=== PATIENT | male | born 1960 | race Caucasian/White ===

== ENCOUNTER 2018-12-02 13:39 | Inpatient (IN) | payer OTHER | END 2018-12-06 13:00 | disposition home health service (06) | LOC: J6S 12-03 00:30 → JER 13:39 → JERBED 18:45 ==

== ENCOUNTER 2018-12-17 13:42 | Observation (INO) | payer OTHER ==
[2018-12-17 13:47] VITALS: BMI 24.4
[2018-12-17] MEDS ORDERED: ASPIRIN 81 MG CHEWABLE TABLETS PO ONE (13:47)
--- NOTE | 2018-12-17 13:47 | PDOC ---
Rapid Medical Evaluation Time Seen by Provider: 12/17/18 13:43 Medical Evaluation: Allergies Allergy/AdvReac Type Severity Reaction Status Date / Time Penicillins Allergy Verified 12/02/18 13:49 12/17/18 13:43 I have performed a brief in-person evaluation of this patient. The patient presents with a chief complaint of: left sided chest pain during hyperbaric treatment Pertinent physical exam findings: Lungs CTAB. S1/S2. No m/r/g. I have ordered the following: cardiac w/u The patient will proceed to the ED for further evaluation. Discharge Disposition - Diagnosis Chest pain - Referrals - Patient Instructions - Post Discharge Activity
[2018-12-17 15:53] LABS: BASO % 1.2 % (0-2.0); HEMATOCRIT 31.8 % (35.4-49); HEMOGLOBIN 10.4 GM/dL (11.7-16.9); LYMPH % 13.4 % (8-40); MCH 26.4 pg (25.7-33.7); MCHC 32.6 g/dl (32.0-35.9); MEAN CELL VOLUME 80.9 fl (80-96); MEAN PLT VOLUME 9.3 fl (7.5-11.1); MONO % 13.7 % (3.8-10.2); NEUT % 64.7 % (42.8-82.8); PLATELET COUNT 257 K/MM3 (134-434); RBC 3.93 M/mm3 (4.00-5.60); WHITE BLOOD COUNT 5.2 K/mm3 (4.0-10.0)
[2018-12-17] MEDS ORDERED: ASPIRIN 81 MG CHEWABLE TABLETS ONE (15:54)
--- NOTE | 2018-12-17 15:56 | PDOC ---
History of Present Illness - General Chief Complaint: Chest Pain Stated Complaint: CHEST PAIN Time Seen by Provider: 12/17/18 13:43 History Source: Patient Exam Limitations: No Limitations - History of Present Illness Initial Comments: HPI: 58 y/o male presenting to [facility] ER from [facility] hyperbaric clinic for resolving episode of left sided anterior wall chest pain. Sensation started while undergoing hyperbaric therapy for chronic foot wounds. States the pain increased in intensity before then spontaneously resolving. Described as dull and like a muscle pain. Worse with direct palpation and movement of the left shoulder. No radiation into back, neck, or abdomen. Denies recent MSK injury or strain. Denies palpitations or associated SOB. Pt receives most of his care at [facility]. 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 Historical EF of 15%. Medical Hx: - Insulin dependent diabetic - HTN - HLD - s/p vascular surgery on R lower extremity Review of Systems: In addition to that documented in the HPI above, the additional ROS was obtained : Constitutional: Denies fevers or chills Head: Denies vision changes ENMT: Denies sore throat CV: Per HPI Resp: Denies SOB GI: Denies vomiting or diarrhea : Denies painful urination, hematuria MSK: Denies recent trauma Skin: Denies new rashes Neuro: Denies new numbness or tingling or weakness Endocrine: Denies polyuria Heme: Denies bleeding or bruising Physical Examination: Constitutional: Well-developed, well-nourished adult male in no acute distress or obvious discomfort. Found semi-fowlers on hospital bed. Alert and oriented x4. Answered all questions appropriately and completely. Speech was non-labored , non-pressured. Head: Normocephalic. No obvious external signs of trauma. Neck: Supple, trachea is midline. Cardiovascular / Chest: Regular rate and regular rhythm. No murmur, rubs, clicks , or gallops. Peripheral pulses: radial pulses full. Mild tenderness to upper outer left anterior chest wall. No pain with active ROM of left shoulder. No overlying skin lesions. Respiratory: Breathing unlabored. Equal chest rise and fall. Clear to auscultation bilaterally. No stridor, no wheezing, no rhonchi. Gastrointestinal: abdomen is soft, non-tender, non-distended. Neuro: Alert and oriented. Moving all four extremities spontaneously. Skin: Murphys, warm, and dry. : No R or L CVA tenderness. Psych: Affect: appropriate. Mood: normal. MDM: *Reviewed vital signs, nursing notes, and prior visit documentation (if available). HEART Score for Major Cardiac Events RESULT SUMMARY: 4 points Moderate Score (4-6 points) Risk of MACE of 12-16.6%. INPUTS: History > 0 = Slightly suspicious EKG > 1 = Non-specific repolarization disturbance Age > 1 = 45-64 Risk factors > 2 = ?3 risk factors or history of atherosclerotic disease Initial troponin > 0 = ?normal limit Fax sent to [facility] for cardiac records ( ) 58 y/o male presenting with reproducible non pleuritic left sided anterior chest wall pain. Pain resolving at time of interview. Multiple cardiac risk factors. HEART score 4. Afebrile. Vitals unremarkable for hypotension or tachycardia. Normoxic on room air. Physical exam as described above. Given ASA. EKG revealed pseudonormalization in inferior leads when compared to previous EKG dated 02 Dec 2018. CXR unremarkable for acute cardiopulmonary findings. CBC remarkable for mild anemia, low suspicion for acute clinical relevance. Troponin not elevated. Three hour troponin ordered. Will admit pt for chest pain observation. 17:[address] Garcia. Verbally appraised of the pts HPI, ED course, and current plan of management. Will admit pt to telemetry on observational status. Sandro Olea M.D., PGY2 Emergency Medicine Resident Past History - Past Medical History Allergies/Adverse Reactions: Allergies Allergy/AdvReac Type Severity Reaction Status Date / Time Penicillins Allergy Verified 12/17/18 13:49 Home Medications: Ambulatory Orders Aspirin [ASA -] 81 mg PO DAILY 12/02/18 Atorvastatin Ca [Lipitor] 40 mg PO HS 12/02/18 Carvedilol [Coreg -] 6.25 mg PO BID 12/02/18 Clopidogrel Bisulfate [Clopidogrel] 75 mg PO DAILY 12/02/18 Lisinopril 5 mg PO DAILY 12/02/18 Collagenase Clostridium Hist. [Santyl] 1 applic TP DAILY 12/03/18 Insulin (Levemir) [Levemir Vial] 10 unit SQ DAILY #1 vial 12/05/18 Naproxen Sodium [Aleve] 3 tab PO Q12H PRN 12/11/18 Anemia: No Asthma: No COPD: No CHF: Yes Diabetes: Yes (25 yrs) GI Disorders: Yes (Gastroparesis) HTN: Yes Hypercholesterolemia: Yes - Surgical History Abdominal Surgery: Yes (hernia repair 2009) Cardiac Surgery: Yes (Cardiac Cath 2008) - Suicide/Smoking/Psychosocial Hx Smoking History: Former smoker Have you smoked in the past 12 months: No If you are a former smoker, when did you quit?: 20 YEARS AGO Information on smoking cessation initiated: No Hx Alcohol Use: No Drug/Substance Use Hx: No Substance Use Type: None *Physical Exam - Vital Signs Last Vital Signs Temp Pulse Resp BP Pulse Ox 98.2 F 91 H 16 104/66 99 12/17/18 13:44 12/17/18 13:44 12/17/18 13:44 12/17/18 13:44 12/17/18 13:44 Vital Signs - Vital Signs #1 Blood Pressure: 106/76 (@15:35) MAP: 86 BP Location: Right Arm Blood Pressure Position: Sitting Pulse Rate: 84 Respiratory Rate: 12 O2 Sat by Pulse Oximetry (%): 99 Oxygen Delivery Method: Room Air ED Treatment Course - LABORATORY CBC & Chemistry Diagram: 12/17/18 15:06 12/17/18 15:06 - ADDITIONAL ORDERS Additional order review: 12/17/18 15:06 RBC 3.93 L MCV 80.9 MCHC 32.6 RDW 16.0 H MPV 9.3 Neutrophils % 64.7 Lymphocytes % 13.4 D Monocytes % 13.7 H Eosinophils % 7.0 H D Basophils % 1.2 *DC/Admit/Observation/Transfer Diagnosis at time of Disposition: Chest pain Qualifiers: Chest pain type: unspecified Qualified Code(s): R07.9 - Chest pain, unspecified - Discharge Dispostion Condition at time of disposition: Stable Decision to Admit order: Yes - Referrals - Patient Instructions - Post Discharge Activity
[2018-12-17 16:08] LABS: INR 1.12 (0.83-1.09); PROTHROMBIN TIME (PATIENT) 13.2 SEC (9.7-13.0)
[2018-12-17 16:20] LABS: BLOOD UREA NITROGEN 19.6 mg/dL (7-18); CALCIUM 9.3 mg/dL (8.5-10.1); CREATININE 1.3 mg/dL (0.55-1.3); MAGNESIUM 2.4 mg/dL (1.8-2.4); POTASSIUM 4.7 mmol/L (3.5-5.1)
--- NOTE | 2018-12-17 16:28 | PDOC ---
Documentation entered by Karen Estrada SCRIBE, acting as scribe for Jorge Valladares MD. Jorge Valladares MD: This documentation has been prepared by the [email or web address], Karen Estrada SCRIBE, under my direction and personally reviewed by me in its entirety. I confirm that the documentation accurately reflects all work, treatment, procedures, and medical decision making performed by me. Attending Attestation - Resident Resident Name: Sandro - ED Attending Attestation I have performed the following: I have examined & evaluated the patient, The case was reviewed & discussed with the resident, I agree w/resident's findings & plan, Exceptions are as noted - HPI HPI: 12/17/18 16:03 The patient is a 58-year-old male, with a past medical history of CHF (EF 35-45% ), IDDM, gastroparesis, who was sent to the ED from the [facility] for LT -sided anterior chest wall pain that has now resolved. The patient is being treated at the [facility] for chronic foot wounds. - Physicial Exam PE: 12/17/18 16:32 patient is awake and alert, well-nourished, in no distress + Scalp hemangiomas noted Normocephalic, atraumatic PERRLA, EOMI No JVD CTA RRR Bilateral nonhealing wounds to lower extremities - Medical Decision Making 12/17/18 16:27 Patient is a 58-year-old male with multiple comorbidities, multiple risk factors for ACS, presents with atraumatic, reproducible left-sided anterior chest pain while in the hyperbaric chamber. EKG shows pseudonormalization of T waves in the inferior leads. Patient currently pain-free. We'll administer aspirin and transdermal nitroglycerin. Patient's heart score is noted to be 4. First set of cardiac enzymes within normal limit. Will place in observation for serial cardiac enzymes. Heart Score/ECG Review - History History: Slightly suspicious - Electrocardiogram EKG: Non specific repolarization disturbance - Age Age: 45-65 - Risk Factors Risk Factors Heart Score: Yes Hx Hypercholesterolemia, Yes Hx Hypertension, Yes Hx Diabetes Based on the list above the patient has:: >/=3 risk factors or Hx atherosclerotic disease - Troponin Troponin: </= normal limit - Score Heart Score - Total: 4
--- NOTE | 2018-12-17 19:25 | HP ---
Admitting History and Physical - Primary Care Physician PCP: Shavonne Garcia - Admission History of Present Illness: 58 y/o male presenting to [facility] ER from [facility] hyperbaric clinic for resolving episode of left sided anterior wall chest pain. Sensation started while undergoing hyperbaric therapy for chronic foot wounds. States the pain increased in intensity before then spontaneously resolving. Described as dull and like a muscle pain. Worse with direct palpation and movement of the left shoulder. No radiation into back, neck, or abdomen. Denies recent MSK injury or strain. Denies palpitations or associated SOB. 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 [Santyl] 1 applic TP DAILY 12/03/18 Insulin (Levemir) [Levemir Vial] 10 unit SQ DAILY #1 vial 12/05/18 Naproxen Sodium [Aleve] 3 tab PO Q12H PRN 12/11/18 Physical Examination Vital Signs: Vital Signs Temperature 98.2 F 12/17/18 13:44 Pulse Rate 84 12/17/18 18:00 Respiratory Rate 12 12/17/18 18:00 Blood Pressure 106/76 12/17/18 18:00 O2 Sat by Pulse Oximetry (%) 99 12/17/18 18:00 Constitutional: Yes: No Distress HENT: Yes: Atraumatic Neck: Yes: Supple Cardiovascular: Yes: Regular Rate and Rhythm Respiratory: Yes: CTA Bilaterally Gastrointestinal: Yes: Normal Bowel Sounds Extremities: Yes: WNL Edema: No Neurological: Yes: Alert, Oriented Labs: CBC, BMP 12/17/18 15:06 12/17/18 15:06 Imaging - Results X-ray: Report Reviewed Problem List - Problems (1) Chest pain Assessment/Plan: reproducible seems like musculoskeletal will monitor on tele fu troponins Code(s): R07.9 - CHEST PAIN, UNSPECIFIED Qualifiers: Chest pain type: unspecified Qualified Code(s): R07.9 - Chest pain, unspecified (2) Diabetes 1.5, managed as type 1 Code(s): E13.9 - OTHER SPECIFIED DIABETES MELLITUS WITHOUT COMPLICATIONS (3) Diabetic foot ulcer Code(s): E11.621 - TYPE 2 DIABETES MELLITUS WITH FOOT ULCER; L97.509 - NON- PRESSURE CHRONIC ULCER OTH PRT UNSP FOOT W UNSP SEVERITY Qualifiers: Diabetic foot ulcer location: heel Diabetes mellitus type: type 2 Laterality: right (4) PVD (peripheral vascular disease) Code(s): I73.9 - PERIPHERAL VASCULAR DISEASE, UNSPECIFIED Assessment/Plan Laboratory Tests 12/17/18 12/17/18 12/17/18 15:06 15:06 15:06 WBC 5.2 RBC 3.93 L Hgb 10.4 L Hct 31.8 L MCV 80.9 MCH 26.4 MCHC 32.6 RDW 16.0 H Plt Count 257 MPV 9.3 Absolute Neuts (auto) 3.4 Neutrophils % 64.7 Lymphocytes % 13.4 D Monocytes % 13.7 H Eosinophils % 7.0 H D Basophils % 1.2 Nucleated RBC % 0 PT with INR INR Sodium 143 Potassium 4.7 Chloride 105 Carbon Dioxide 32 Anion Gap 6 L BUN 19.6 H Creatinine 1.3 Est GFR (CKD-EPI)AfAm 69.71 Est GFR (CKD-EPI)NonAf 60.14 Random Glucose 204 H Calcium 9.3 Magnesium 2.4 Total Bilirubin 1.0 AST 8 L ALT 13 Alkaline Phosphatase 65 Creatine Kinase 43 Troponin I < 0.02 Total Protein 7.0 Albumin 3.0 L 12/17/18 15:06 WBC RBC Hgb Hct MCV MCH MCHC RDW Plt Count MPV Absolute Neuts (auto) Neutrophils % Lymphocytes % Monocytes % Eosinophils % Basophils % Nucleated RBC % PT with INR 13.20 H INR 1.12 H Sodium Potassium Chloride Carbon Dioxide Anion Gap BUN Creatinine Est GFR (CKD-EPI)AfAm Est GFR (CKD-EPI)NonAf Random Glucose Calcium Magnesium Total Bilirubin AST ALT Alkaline Phosphatase Creatine Kinase Troponin I Total Protein Albumin continue home meds
[2018-12-17] MEDS ORDERED: ATORVASTATIN CA 40 MG TABLET (FP) PO SCH (22:00)
--- NOTE | 2018-12-17 23:30 | EKG ---
Test Reason : Blood Pressure : / mmHG Vent. Rate : 087 BPM Atrial Rate : 087 BPM P-R Int : 154 ms QRS Dur : 088 ms QT Int : 368 ms P-R-T Axes : 063 -30 000 degrees QTc Int : 442 ms NORMAL SINUS RHYTHM LEFT AXIS DEVIATION ABNORMAL ECG WHEN COMPARED WITH ECG OF 02-DEC-2018 19:57, CRITERIA FOR SEPTAL INFARCT ARE NO LONGER PRESENT NONSPECIFIC T WAVE ABNORMALITY HAS REPLACED INVERTED T WAVES IN INFERIOR LEADS Confirmed by GALINA RUIZ MD ([id number]) on 12/17/2018 11:30:28 PM Referred By: Confirmed By:GALINA RUIZ MD
[2018-12-18] MEDS ORDERED: CARVEDILOL 3.125 MG TABLET (FP) ONE (00:18)
[2018-12-18] MEDS ORDERED: ATORVASTATIN CA 40 MG TABLET (FP) ONE (00:18)
[2018-12-18] MEDS ORDERED: HEPARIN NA (PORCINE) 5,000 UNITS/ML 1ML VIAL ONE (00:19)
[2018-12-18] MEDS: HEPARIN NA (PORCINE) 5,000 UNITS/ML 1ML VIAL SQ SCH ×2 (00:31→09:59)
[2018-12-18] MEDS: CARVEDILOL 6.25 MG TABLET (FP) PO SCH ×2 (00:31→09:58)
[2018-12-18] MEDS ORDERED: COLLAGENASE CLOSTRIDIUM HIST. 30 GRAMS TUBE TP SCH (10:00)
[2018-12-18] MEDS ORDERED: ASPIRIN 81 MG CHEWABLE TABLETS PO SCH (10:00)
[2018-12-18] MEDS ORDERED: CLOPIDOGREL BISULFATE 75 MG TABLET (FP) PO SCH (10:00)
--- NOTE | 2018-12-18 10:08 | CON.CARD ---
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 No radiation into back, neck, or abdomen. Denies recent MSK injury or strain. Denies near or true syncope, orthopnea, PND, LE edema palpitations or associated SOB. 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: Peripheral Neuropathy, Other (LP 2 years ago- followed by neurologist ) Cardio/Vascular: Yes: CHF, HTN Gastrointestinal: Yes: Other (gastroparesis) Endocrine: Yes: Diabetes Mellitus - Past Surgical History Past Surgical History: Yes: Hernia Repair - Alcohol/Substance Use Hx Alcohol Use: No - Smoking History Smoking history: Former smoker Have you smoked in the past 12 months: No If you are a former smoker, when did you quit?: 20 YEARS AGO - Social History Usual Living Arrangement: Alone ADL: Independent 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 [Santyl] 1 applic TP DAILY 12/03/18 Insulin (Levemir) [Levemir Vial] 10 unit SQ DAILY #1 vial 12/05/18 Naproxen Sodium [Aleve] 3 tab PO Q12H PRN 12/11/18 Review of Systems - Review of Systems Cardiovascular: reports: Chest Pain Vital Signs: Vital Signs Temperature 98.0 F 12/18/18 06:24 Pulse Rate 79 12/18/18 06:24 Respiratory Rate 18 12/18/18 06:24 Blood Pressure 128/85 12/18/18 06:24 O2 Sat by Pulse Oximetry (%) 100 12/18/18 06:24 Constitutional: Yes: No Distress, Calm Neck: Yes: Supple Respiratory: Yes: Regular, CTA Bilaterally, Other (Reproducible chest wall tenderness) Gastrointestinal: Yes: Normal Bowel Sounds, Soft Cardiovascular: Yes: Regular Rate and Rhythm JVD: No Carotid Bruit: No Heart Sounds: Yes: S1, S2 Edema: No - Other Data Labs, Other Data: CBC, BMP 12/17/18 15:06 12/17/18 15:06 INR, PTT INR 1.12 (0.83-1.09) H 12/17/18 15:06 Troponin, BNP 12/17/18 12/18/18 15:06 03:25 Troponin I < 0.02 0.02 Troponin, BNP 12/17/18 12/18/18 15:06 03:25 Troponin I < 0.02 0.02 NSR @ 87 LAD Prior Cardiac Procedures: Cardiac Catheterization Ejection Fraction %: LVEF < 40 % Imaging - Results Chest X-ray: Report Reviewed (NAD) Problem List - Problems (1) Left-sided chest wall pain Code(s): R07.89 - OTHER CHEST PAIN (2) Nonischemic dilated cardiomyopathy Code(s): I42.0 - DILATED CARDIOMYOPATHY (3) Hyperlipidemia Code(s): E78.5 - HYPERLIPIDEMIA, UNSPECIFIED Qualifiers: Hyperlipidemia type: pure hypercholesterolemia Qualified Code(s): E78.00 - Pure hypercholesterolemia, unspecified; E78.0 - Pure hypercholesterolemia (4) Hypertensive cardiomyopathy Code(s): I11.9 - HYPERTENSIVE HEART DISEASE WITHOUT HEART FAILURE; I43 - CARDIOMYOPATHY IN DISEASES CLASSIFIED ELSEWHERE Qualifiers: Heart failure presence: without heart failure Qualified Code(s): I11.9 - Hypertensive heart disease without heart failure; I43 - Cardiomyopathy in diseases classified elsewhere (5) Diabetes 1.5, managed as type 1 Code(s): E13.9 - OTHER SPECIFIED DIABETES MELLITUS WITHOUT COMPLICATIONS (6) Diabetic foot ulcer Code(s): E11.621 - TYPE 2 DIABETES MELLITUS WITH FOOT ULCER; L97.509 - NON- PRESSURE CHRONIC ULCER OTH PRT UNSP FOOT W UNSP SEVERITY Qualifiers: Diabetic foot ulcer location: heel Diabetes mellitus type: type 2 Laterality: right (7) Wound, open, foot Code(s): S91.309A - UNSPECIFIED OPEN WOUND, UNSPECIFIED FOOT, INITIAL ENCOUNTER Qualifiers: Encounter type: initial encounter Laterality: right Qualified Code(s): S91.301A - Unspecified open wound, right foot, initial encounter (8) PVD (peripheral vascular disease) Code(s): I73.9 - PERIPHERAL VASCULAR DISEASE, UNSPECIFIED Assessment/Plan 1. Chest wall discomfort c/w musculoskeletal etiology 2. Nonischemic dilated cardiomyopathy LVEF 35-45% on most recent echo 3. Insulin-dependent type 2 DM c/b peripheral neuropathy and gastroparesis 4. HTN 5. Hyperlipidemia 6. PAD with chronic non-healing heel ulcers and right big toe amputation 7. PCN Allergy P:1. Ruled out for IA, analgesia as needed but prefer to avoid NSAIDs given CVD history 2. Continue ASA 81 qd, Lipitor 40 qd, carvedilol 6.26 bid, lisinopril 5 qd, Plavix 75 qd 3. Obtain records from [facility] for review 4. Wound care, HBO2 5. Patient prefers transfer cardiology f/u to local office, he may see us in office upon d/c 6. Thank you for consultative opportunity
[2018-12-18] MEDS ORDERED: LISINOPRIL 5 MG TABLET (FP) PO SCH (10:45)
--- NOTE | 2018-12-18 14:31 | DS ---
Physical Examination Vital Signs: Vital Signs Temperature 98.0 F 12/18/18 06:24 Pulse Rate 79 12/18/18 06:24 Respiratory Rate 18 12/18/18 06:24 Blood Pressure 128/85 12/18/18 06:24 O2 Sat by Pulse Oximetry (%) 100 12/18/18 06:24 Constitutional: Yes: No Distress HENT: Yes: Atraumatic Cardiovascular: Yes: Regular Rate and Rhythm Respiratory: Yes: CTA Bilaterally Gastrointestinal: Yes: Normal Bowel Sounds Extremities: Yes: WNL Neurological: Yes: Alert, Oriented Labs: CBC, BMP 12/17/18 15:06 12/17/18 15:06 Discharge Summary Reason For Visit: CHEST PAIN Current Active Problems Chest pain (Acute) Hyperlipidemia (Acute) Hypertensive cardiomyopathy (Acute) Left-sided chest wall pain (Acute) Nonischemic dilated cardiomyopathy (Acute) Condition: Stable - Instructions Referrals: Armen Horton MD [Staff Physician] - Disposition: HOME - Home Medications Comprehensive Discharge Medication List: Ambulatory Orders Aspirin [ASA -] 81 mg PO DAILY 12/02/18 Atorvastatin Ca [Lipitor] 40 mg PO HS 12/02/18 Carvedilol [Coreg -] 6.25 mg PO BID 12/02/18 Clopidogrel Bisulfate [Clopidogrel] 75 mg PO DAILY 12/02/18 Lisinopril 5 mg PO DAILY 12/02/18 Collagenase Clostridium Hist. [Santyl] 1 applic TP DAILY 12/03/18 Insulin (Levemir) [Levemir Vial] 10 unit SQ DAILY #1 vial 12/05/18 Naproxen Sodium [Aleve] 3 tab PO Q12H PRN 12/11/18 troponins negative dc home fu cardio/pmd as out patient
[2018-12-18 15:04] VITALS: BP 148/84; PULSE 79; TEMP 98.2
== END 2018-12-18 18:42 | disposition home or self-care (01) ==
LOC: JER 13:42 → JERBED 16:33 → J4W 12-18 07:56
PROVIDERS: ADMIT Internal Medicine; ATTEND Internal Medicine
PROC: 3E013GC Introduction of Other Therapeutic Substance into Subcutaneous Tissue, Percutaneous Approach (ICD-10-PCS; principal; 2018-12-17)
DX: R07.89 Other chest pain (principal); I11.0 Hypertensive heart disease with heart failure; E78.5 Hyperlipidemia, unspecified; I50.30 Unspecified diastolic (congestive) heart failure; E11.621 Type 2 diabetes mellitus with foot ulcer; L97.509 Non-pressure chronic ulcer of other part of unspecified foot with unspecified severity; I73.9 Peripheral vascular disease, unspecified; I42.0 Dilated cardiomyopathy; I43 Cardiomyopathy in diseases classified elsewhere; Z79.4 Long term (current) use of insulin; Z87.891 Personal history of nicotine dependence; Z98.61 Coronary angioplasty status
CPT/HCPCS: 36415; 71046-TC-FY; 80053; 82550; 82962; 83735; 84484; 85025; 85610; 93005; 93010; 96372; 99285-25; G0277; G0378; J1644

== ENCOUNTER 2018-12-23 10:36 | Inpatient (IN) | payer OTHER ==
--- NOTE | 2018-12-23 11:15 | PDOC ---
History of Present Illness - General Chief Complaint: Wound Stated Complaint: WOUND Time Seen by Provider: 12/23/18 11:09 - History of Present Illness Initial Comments: 12/23/18 11:14 The patient is a 58-year-old male, with a past medical history of CHF (EF 35-45% ), IDDM, gastroparesis, currently undergoing hyperbaric treatment for chronic foot wounds who was sent by his Podiatrists office for possible new R lateral heel redness and potential abscess. The patient denies fever, chills, change in sensation of the foot, increased swelling. Denies n/v/d/c, chest pain, shortness of breath. Patient uses a scooter to move around in order to stay off his feet. ROS GENERAL/CONSTITUTIONAL: No fever or chills. No weakness. HEAD, EYES, EARS, NOSE AND THROAT: No change in vision. No ear pain or discharge. No sore throat. CARDIOVASCULAR: No chest pain or shortness of breath RESPIRATORY: No cough, wheezing, or hemoptysis. GASTROINTESTINAL: No nausea, vomiting, diarrhea or constipation. GENITOURINARY: No dysuria, frequency, or change in urination. MUSCULOSKELETAL: No neck or back pain. SKIN: No rash NEUROLOGIC: No headache, vertigo, loss of consciousness, or change in strength/ sensation. PE GENERAL: Awake, alert, and fully oriented, in no acute distress HEAD: No signs of trauma, normocephalic, atraumatic EYES: EOMI, sclera anicteric, conjunctiva clear ENT: oropharynx clear without exudates. Moist mucosa NECK: Normal ROM, supple LUNGS: No distress, speaks full sentences, clear to auscultation bilaterally HEART: Regular rate and rhythm, normal S1 and S2, no murmurs, rubs or gallops, peripheral pulses normal and equal bilaterally. ABDOMEN: Soft, nontender, normoactive bowel sounds. No guarding, no rebound. No masses EXTREMITIES : L foot: 6cm plantar ulcer, heel crusted over ulcer R foot: 1st digit amputation, 2cm heel ulcer, lateral plantar ulcer 2cm, lateral heel erythema 5cm NEUROLOGICAL: Cranial nerves II through XII grossly intact. Normal speech, no focal sensorimotor deficits MDM The patient is a 58-year-old male, with a past medical history of CHF (EF 35-45% ), IDDM, gastroparesis, currently undergoing hyperbaric treatment for chronic foot wounds who was sent by his Podiatrists office for possible new R lateral heel redness and potential abscess. DDX including but not limited to: cellulitis vs ulcer vs abscess r/osteomyelitis W/U: - cbc, cmp, blood cultures, xr ED Course: empiric antibiotics started labs largely within normal XR without evidence of bone involvement plan for admission Case discussed with resident Dr. Jorge Hernandez, PGY2 Emergency Medicine Past History - Past Medical History Allergies/Adverse Reactions: Allergies Allergy/AdvReac Type Severity Reaction Status Date / Time Penicillins Allergy Verified 12/23/18 10:42 Home Medications: Ambulatory Orders Aspirin [ASA -] 81 mg PO DAILY 12/23/18 Atorvastatin Ca [Lipitor] 40 mg PO HS 12/23/18 Carvedilol [Coreg] 6.25 mg PO DAILY 12/23/18 Clopidogrel Bisulfate [Clopidogrel] 75 mg PO DAILY 12/23/18 Insulin (Levemir) [Levemir Vial] 10 units SQ DAILY 12/23/18 Lisinopril 5 mg PO DAILY 12/23/18 Anemia: No Asthma: No Cardiac Disorders: Yes COPD: No CHF: Yes Diabetes: Yes GI Disorders: Yes HTN: Yes Hypercholesterolemia: Yes Other medical history: hydrocepalus - Surgical History Abdominal Surgery: Yes (hernia repair 2009) Cardiac Surgery: Yes (Cardiac Cath 2008) - Suicide/Smoking/Psychosocial Hx Smoking History: Never smoked Have you smoked in the past 12 months: No If you are a former smoker, when did you quit?: 20 YEARS AGO Hx Alcohol Use: No Drug/Substance Use Hx: No Substance Use Type: None *Physical Exam - Vital Signs Last Vital Signs Temp Pulse Resp BP Pulse Ox 97.8 F 109 H 16 109/72 100 12/23/18 10:39 12/23/18 10:39 12/23/18 10:39 12/23/18 10:39 12/23/18 10:39 ED Treatment Course - LABORATORY CBC & Chemistry Diagram: 12/25/18 07:07 12/25/18 07:07 *DC/Admit/Observation/Transfer Diagnosis at time of Disposition: Foot ulcer - Discharge Dispostion Condition at time of disposition: Stable Decision to Admit order: Yes - Referrals - Patient Instructions - Post Discharge Activity
[2018-12-23] MEDS ORDERED: VANCOMYCIN HCL 1,500 MG in DEXTROSE 5%-WATER - 500 ML IVPB ONE (11:34)
[2018-12-23] MEDS ORDERED: PIPERACILLIN/TAZOB 4.5 GM 4.5 GM in DEXTROSE 5%-WATER 100 ML IVPB ONE (11:34)
[2018-12-23] MEDS ORDERED: PIPERACILLIN/TAZOB 4.5 GM 4.5 GM/100 ML BAG IVPB ONE (12:32)
[2018-12-23] MEDS ORDERED: VANCOMYCIN HCL 1,000 MG in DEXTROSE 5%-WATER - 500 ML IVPB ONE (13:04)
[2018-12-23 13:06] LABS: BASO % 0.7 % (0-2.0); EOS % 6.6 % (0-4.5); HEMATOCRIT 34.6 % (35.4-49); HEMOGLOBIN 11.2 GM/dL (11.7-16.9); LYMPH % 10.2 % (8-40); MCH 26.4 pg (25.7-33.7); MCHC 32.3 g/dl (32.0-35.9); MEAN CELL VOLUME 81.9 fl (80-96); MEAN PLT VOLUME 9.5 fl (7.5-11.1); MONO % 10.5 % (3.8-10.2); PLATELET COUNT 254 K/MM3 (134-434); RBC 4.22 M/mm3 (4.00-5.60); RDW 16.1 % (11.9-15.9); WHITE BLOOD COUNT 7.6 K/mm3 (4.0-10.0)
[2018-12-23 13:31] LABS: ALBUMIN 3.3 g/dl (3.4-5.0); BILIRUBIN,TOTAL 0.5 mg/dL (0.2-1); BLOOD UREA NITROGEN 17.2 mg/dL (7-18); CALCIUM 9.3 mg/dL (8.5-10.1); CREATININE 1.2 mg/dL (0.55-1.3); TOT PROT 7.7 g/dl (6.4-8.2)
[2018-12-23] MEDS ORDERED: VANCOMYCIN 1 GRAM (PRE-DOCKED) 1,000 MG/250 ML BAG IVPB ONE (13:41)
--- NOTE | 2018-12-23 13:46 | PDOC ---
Documentation entered by Valerie Perez SCRIBE, acting as scribe for Yaakov Lane MD. Yaakov Lane MD: This documentation has been prepared by the Chris clements Xhesika, SCRIBE, under my direction and personally reviewed by me in its entirety. I confirm that the documentation accurately reflects all work, treatment, procedures, and medical decision making performed by me. Attending Attestation - Resident Resident Name: Dorinda Hernandez - ED Attending Attestation I have performed the following: I have examined & evaluated the patient, The case was reviewed & discussed with the resident, I agree w/resident's findings & plan, Exceptions are as noted - HPI HPI: 12/23/18 12:45 The patient is a 58 year old male, with a past medical history of CHF (EF 35-45% ), IDDM, gastroparesis, neuropathy, and R great toe amputation (2008) who presents to the ED from the [facility] for admission for worsening R heel wound, swelling and redness. The patient is being treated at the [facility] for chronic foot wounds for the past 3 weeks and is now endorsing chills and difficulty walking (ambulates with a scooter). The patient denies headache and dizziness. Denies fever, nausea, vomiting, diarrhea and constipation. Denies dysuria, frequency, urgency and hematuria. Allergies: Penicillins - Physicial Exam PE: 12/23/18 12:46 Vitals: Triage Vital signs reviewed General Appearance: no acute distress, well nourished well developed, Head: Atraumatic, normocephalic Chest Wall: Nontender Cardiac: Regular rate and rhythm, no murmurs, no rubs, no gallops, Lungs: Clear to auscultation bilateral, good air movement bilaterally, Abdomen: Soft, nondistended, normal bowel sounds, nontender to palpation Extremities: (+) R heel swelling and redness with 2 small ulcers. Skin: Warm and dry, no rashes or lesions, no petechiae Neuro: Strength intact to all extremities, Sensation intact to all extremities , Psych: normal mood, normal affect - Medical Decision Making 12/23/18 14:18 58 years old past medical history significant for CHF, and some dependent diabetes, gastroparesis, undergoing bariatric treatment of chronic right foot wound presents for admission for new right heel lateral heel redness and swelling Endorses subjective fever chills at home Symptoms of been progressively worsening over the last few weeks We'll admit for IV antibiotics cover thanks Feroz have podiatry and infectious disease consult
--- NOTE | 2018-12-23 16:19 | HP ---
Admitting History and Physical - Primary Care Physician PCP: follows at [facility] - Admission Chief Complaint: non-healing foot ulcers History of Present Illness: The patient is a 58-year-old male, with a past medical history of CHF (EF 35-45% ), IDDM, gastroparesis, currently undergoing hyperbaric treatment for chronic foot wounds with Dr Beverly. Sent from his office for possible new R lateral heel redness and potential abscess. Patient states the right foot has been tender and draining since he left the hospital on 12/18/18. The patient denies fever, change in sensation of the foot, increased swelling but tstaes hes been having intermittent chills for 5 days. Denies n/v/d/c, chest pain, shortness of breath. Patient uses a scooter to ambulate. 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: Peripheral Neuropathy, Other (LP 2 years ago- followed by neurologist ) Cardiovascular: Yes: CHF (EF 35-55%), HTN Gastrointestinal: Yes: Other (gastroparesis) Infectious Disease: Yes: Other (non healing foot ulcers on both) Endocrine: Yes: Diabetes Mellitus - Past Surgical History Past Surgical History: Yes: Amputation (right great toe), Hernia Repair - Smoking History Smoking history: Never smoked Have you smoked in the past 12 months: No If you are a former smoker, when did you quit?: 20 YEARS AGO - Alcohol/Substance Use Hx Alcohol Use: No - Social History ADL: Independent 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 History of Recent Travel: No Home Medications - Allergies Allergies/Adverse Reactions: Allergies Allergy/AdvReac Type Severity Reaction Status Date / Time Penicillins Allergy Verified 12/23/18 10:42 - Home Medications Home Medications: Ambulatory Orders Aspirin [ASA -] 81 mg PO DAILY 12/23/18 Atorvastatin Ca [Lipitor] 40 mg PO HS 12/23/18 Carvedilol [Coreg] 6.25 mg PO DAILY 12/23/18 Clopidogrel Bisulfate [Clopidogrel] 75 mg PO DAILY 12/23/18 Insulin (Levemir) [Levemir Vial] 10 units SQ DAILY 12/23/18 Lisinopril 5 mg PO DAILY 12/23/18 Family Disease History - Family Disease History Family History: Unremarkable (non contibutory) Review of Systems - Review of Systems Constitutional: reports: Chills (x 5 days) Eyes: reports: No Symptoms HENT: reports: No Symptoms Neck: reports: No Symptoms Cardiovascular: reports: No Symptoms Respiratory: reports: No Symptoms Gastrointestinal: reports: No Symptoms Genitourinary: reports: No Symptoms Breasts: reports: No Symptoms Reported Integumentary: reports: Change in Color (to right heel and draining clear fluid) Neurological: reports: No Symptoms Endocrine: reports: No Symptoms Hematology/Lymphatic: reports: No Symptoms Psychiatric: reports: No Symptoms Physical Examination Vital Signs: Vital Signs Temperature 97.8 F 12/23/18 10:39 Pulse Rate 109 H 12/23/18 10:39 Respiratory Rate 16 12/23/18 10:39 Blood Pressure 109/72 12/23/18 10:39 O2 Sat by Pulse Oximetry (%) 100 12/23/18 10:39 Constitutional: Yes: Well Nourished, No Distress, Calm Eyes: Yes: WNL, Conjunctiva Clear, EOM Intact HENT: Yes: WNL, Atraumatic, Normocephalic Neck: Yes: WNL, Supple, Trachea Midline Cardiovascular: Yes: WNL, Regular Rate and Rhythm Respiratory: Yes: WNL, Regular, CTA Bilaterally Gastrointestinal: Yes: WNL, Normal Bowel Sounds, Soft ...Rectal Exam: Yes: Deferred Renal/: Yes: WNL Breast(s): Yes: WNL Musculoskeletal: Yes: WNL Extremities: Yes: Amputation, Erythema, Other (L foot: 6cm plantar ulcer, heel crusted over ulcer R foot: 1st digit amputation, 2cm heel ulcer, lateral plantar ulcer 2cm, lateral heel erythema 5cm) Edema: Yes Edema: LLE: Trace, RLE: Trace Peripheral Pulses WNL: No Peripheral Pulses: Left Radial: 2+, Right Radial: 2+, Left Doralis Pedis: 1+, Right Dorsalis Pedis: 1+, Left Femoral: 2+, Right Femoral: 2+ Integumentary: Yes: Other (L foot: 6cm plantar ulcer, heel crusted over ulcer R foot: 1st digit amputation, 2cm heel ulcer, lateral plantar ulcer 2cm, lateral heel erythema 5cm) Wound/Incision: Yes: Open to air, Draining (yellow drainage on dressing, not foul smelling) Neurological: Yes: WNL, Alert, Oriented ...Motor Strength: LLE, RLE (decreased due to ulcers) Psychiatric: Yes: WNL, Alert, Oriented Labs: CBC, BMP 12/23/18 12:48 12/23/18 12:48 Imaging - Results X-ray: Report Reviewed (3 views of the left ankle have been submitted. There is no sign of fracture or subluxation and no sign of blastic or lytic changes. There is minimal calcaneal spurring, vascular calcifications, intact mortise and no sign of swelling, foreign body or soft tissue air. 3 views of the left foot reveal bunion formation by the first MTP joint with partially flexed toes and other arthritic changes. An acute fracture or subluxation is not seen. There is no sign of swelling, foreign body or soft tissue air. If symptoms persist, further imaging and orthopedic consultation may be of help.), Image Reviewed Problem List - Problems (1) History of hyperbaric oxygen therapy Assessment/Plan: treated by Dr Carter for chronic foot ulcers Code(s): Z92.89 - PERSONAL HISTORY OF OTHER MEDICAL TREATMENT (2) Prophylactic measure Assessment/Plan: FEN Pt states he feels dehydrated. Given reported chills will order NS @ 50cc/hr until observed adequate IVF monitor electrolytes diabetic diet DVT on plavix at home-will hold dose in am pending potential wound procedures Dispo admit to med surg bed full code discharge planning Code(s): Z29.9 - ENCOUNTER FOR PROPHYLACTIC MEASURES, UNSPECIFIED (3) Diabetic foot ulcer Assessment/Plan: treated by Dr Carter for chronic foot ulcers Code(s): E11.621 - TYPE 2 DIABETES MELLITUS WITH FOOT ULCER; L97.509 - NON- PRESSURE CHRONIC ULCER OTH PRT UNSP FOOT W UNSP SEVERITY Qualifiers: Diabetic foot ulcer location: heel Diabetes mellitus type: type 2 Laterality: right (4) Hyperlipidemia Assessment/Plan: low fat/cholesterol diet c\w home dose of atorvastin Code(s): E78.5 - HYPERLIPIDEMIA, UNSPECIFIED Qualifiers: Hyperlipidemia type: pure hypercholesterolemia Qualified Code(s): E78.00 - Pure hypercholesterolemia, unspecified; E78.0 - Pure hypercholesterolemia (5) PVD (peripheral vascular disease) Assessment/Plan: followed by Dr Santoyo for hyperbaric oxygen therapy wound care as per podiatry c/w ambulation with scooter to decrease pressure on open wounds Code(s): I73.9 - PERIPHERAL VASCULAR DISEASE, UNSPECIFIED (6) Non-ischemic cardiomyopathy Assessment/Plan: nonischemic dilated cardiomyopathy (initially LVEF 15% on initial diagnosis 2008 , most recent EF 35-45%) will consult cardiology for managment while in patient c/w home doses of ASA 81 qd, Lipitor 40 qd, carvedilol 6.26 bid, lisinopril 5 qd will hold Plavix for now pending potential wound procedure Code(s): I42.8 - OTHER CARDIOMYOPATHIES Visit type - Emergency Visit Emergency Visit: Yes ED Registration Date: 12/23/18 Care time: The patient presented to the Emergency Department on the above date and was hospitalized for further evaluation of their emergent condition. - New Patient This patient is new to me today: Yes Date on this admission: 12/23/18 - Critical Care Critical Care patient: No
--- NOTE | 2018-12-23 17:29 | CONSULT ---
Consult - text type - Consultation Consultation Note: Podiatry Consultation: 58 year old IDDM male presented to wound healing center today with bilateral diabetic foot ulcers. The patient noted increasing pain/swelling/redness to the right lateral heel over the past few days. He denies fevers but does report subjective chills at home. Currently afebrile. Patient was seen with purulent drainage from the right heel today and was sent to the ED for admission. PMHx: IDDM, HTN, CHF, gastroparesis, PVD s/p stents Meds: noted ALL: PCN JADE: R foot: pedal pulses nonpalpable, TG warm-warm. There is a plantar heel diabetic ulcer mixed fibrogranular base, regular borders, no probing to bone, no bone exposed. Lateral to the heel ulcer, there is fluctuance noted to the lateral ankle, purulent drainage expressed from ulcer base, no soft tissue crepitus, moderate tenderness to palpation. Stable sub-fifth metatarsal diabetic ulcer with granular base, no probing to bone. L foot: pedal pulses nonpalpable, TG wnl. There is a plantar forefoot diabetic ulcer with fibrogranular base, minimal slough, no probing to bone, no purulence , no fluctuance, no streaking cellulitis Imp: 58 year old diabetic male with right foot/ankle cellulitis, concern for abscess 1. IV abx, ID consultation 2. Recommend MRI R foot and ankle to evaluate for osteomyelitis, abscess 3. If (+) will need incision and drainage, possible bone biopsy in OR 4. Will follow. Thank you for the courtesy of this consultation. Filipe Santoyo DPM
[2018-12-23] MEDS ORDERED: PIPERACILLIN/TAZOBACTAM 3.375 GM VIAL IVPB ONE (17:37)
[2018-12-23] MEDS ORDERED: DEXTROSE 5%-WATER - 50 ML IVPB ONE (17:38)
[2018-12-23] MEDS: PIPERACILLIN/TAZOB 3.375 GM 3.375 GM in DEXTROSE 5%-WATER - 50 ML IVPB SCH (17:44)
[2018-12-23] MEDS: INSULIN SLIDING SCALE (NOVOLOG) 1 VIAL SQ SCH ×2 (17:44→21:14)
[2018-12-23 18:29] VITALS: BMI 24.5
[2018-12-23] MEDS ORDERED: INSULIN (NOVOLOG) ASPART 100 UNITS/ML 10ML VIAL ONE (21:18)
[2018-12-23] MEDS: CARVEDILOL 6.25 MG TABLET (FP) PO SCH (21:33)
[2018-12-23] MEDS: HEPARIN NA (PORCINE) 5,000 UNITS/ML 1ML VIAL SQ SCH (21:33)
[2018-12-23] MEDS: ATORVASTATIN CA 40 MG TABLET (FP) PO SCH (21:33)
[2018-12-23] MEDS ORDERED: ATORVASTATIN CA 40 MG TABLET (FP) PO SCH (22:00)
[2018-12-24] MEDS ORDERED: DEXTROSE 5%-WATER - 50 ML IVPB ONE ×2 (00:58→09:48)
[2018-12-24] MEDS ORDERED: PIPERACILLIN/TAZOBACTAM 3.375 GM VIAL IVPB ONE ×2 (00:58→09:48)
[2018-12-24] MEDS: PIPERACILLIN/TAZOB 3.375 GM 3.375 GM in DEXTROSE 5%-WATER - 50 ML IVPB SCH ×3 (01:22→12:09)
[2018-12-24] MEDS: INSULIN SLIDING SCALE (NOVOLOG) 1 VIAL SQ SCH ×4 (06:02→21:35)
[2018-12-24] MEDS ORDERED: INSULIN (LEVEMIR) 100 UNITS/ML UNITS SQ ONE (06:06)
[2018-12-24] MEDS: INSULIN (LEVEMIR) 100 UNITS/ML UNITS SQ SCH (06:07)
--- NOTE | 2018-12-24 08:08 | PN ---
Progress Note, Physician Chief Complaint: non-healing foot ulcers. Pain to right heel persists History of Present Illness: The patient is a 58-year-old male, with a past medical history of CHF (EF 35-45% ), IDDM, gastroparesis, currently undergoing hyperbaric treatment for chronic foot wounds with Dr Beverly. Sent from his office for possible new R lateral heel redness and potential abscess. Patient states the right foot has been tender and draining since he left the hospital on 12/18/18. The patient denies fever, change in sensation of the foot, increased swelling but tstaes hes been having intermittent chills for 5 days. Denies n/v/d/c, chest pain, shortness of breath. Patient uses a scooter to ambulate. Dr Andrade following pt - Current Medication List Current Medications: Active Medications Aspirin (Asa -) 81 mg PO DAILY [facility] Atorvastatin Calcium (Lipitor -) 40 mg PO HS [facility] Last Admin: 12/23/18 21:33 Dose: 40 mg Carvedilol (Coreg -) 6.25 mg PO BID [facility] Last Admin: 12/23/18 21:33 Dose: 6.25 mg Collagenase (Santyl -) 1 applic TP DAILY [facility]; Protocol Heparin Sodium (Porcine) (Heparin -) 5,000 unit SQ BID [facility] Last Admin: 12/23/18 21:33 Dose: 5,000 unit Piperacillin Sod/Tazobactam (Sod 3.375 gm/ Dextrose) 50 mls @ 100 mls/hr IVPB Q8H-IV [facility]; Protocol Piperacillin Sod/Tazobactam (Sod 3.375 gm/ Dextrose) 50 mls @ 100 mls/hr IVPB Q8H-IV [facility]; Protocol Stop: 12/24/18 10:29 Last Admin: 12/24/18 01:22 Dose: 100 mls/hr Insulin Aspart (Novolog Vial Sliding Scale -) 1 vial SQ ACHS [facility]; Protocol Last Admin: 12/24/18 06:02 Dose: Not Given Insulin Detemir (Levemir Vial) 10 units SQ AM [facility] Last Admin: 12/24/18 06:07 Dose: 10 units Lisinopril (Prinivil) 5 mg PO DAILY [facility] Vancomycin HCl (Vancomycin (Pre-Docked)) 1,000 mg IVPB DAILY [facility]; Protocol Vancomycin HCl (Vancomycin (Pre-Docked)) 1,000 mg IVPB Q24H [facility]; Protocol Stop: 12/24/18 14:01 - Objective Vital Signs: Vital Signs Temperature 98.4 F 12/24/18 06:00 Pulse Rate 79 12/24/18 06:00 Respiratory Rate 20 12/24/18 06:00 Blood Pressure 122/74 12/24/18 06:00 O2 Sat by Pulse Oximetry (%) 96 12/23/18 21:00 Constitutional: Yes: Well Nourished, No Distress, Calm Eyes: Yes: WNL, Conjunctiva Clear, EOM Intact HENT: Yes: WNL, Atraumatic, Normocephalic Neck: Yes: WNL, Supple, Trachea Midline Cardiovascular: Yes: WNL, Regular Rate and Rhythm Respiratory: Yes: WNL, Regular, CTA Bilaterally Gastrointestinal: Yes: WNL, Normal Bowel Sounds, Soft ...Rectal Exam: Yes: Deferred Genitourinary: Yes: WNL Breast(s): Yes: WNL Musculoskeletal: Yes: WNL Extremities: Yes: Other (Amputation, Erythema, Other (L foot: 6cm plantar ulcer , heel crusted over ulcer R foot: 1st digit amputation, 2cm heel ulcer, lateral plantar ulcer 2cm, lateral heel erythema 5cm) Edema: Yes Edema: LLE: Trace, RLE: Trace Integumentary: Yes: Other (L foot: 6cm plantar ulcer, heel crusted over ulcer R foot: 1st digit amputation, 2cm heel ulcer, lateral plantar ulcer 2cm, lateral heel erythema 5cm)) Wound/Incision: Yes: Open to air, Other (yellow drainage on dressing, not foul smelling) Neurological: Yes: WNL, Alert, Oriented ...Motor Strength: LLE, RLE (decreased due to ulcers, uses motorized scooter) Psychiatric: Yes: WNL, Alert, Oriented Labs: CBC, BMP 12/23/18 12:48 12/23/18 12:48 - ....Imaging MRI: Report Reviewed (MRI right foot: subcutaneous abscess at this level measuring 2.2 cm in AP dimension, 9 mm in width and 1.7 cm in height. No osteo) Problem List - Problems (1) History of hyperbaric oxygen therapy Assessment/Plan: treated by Dr Carter for chronic foot ulcers Code(s): Z92.89 - PERSONAL HISTORY OF OTHER MEDICAL TREATMENT (2) Prophylactic measure Assessment/Plan: FEN Pt states he feels dehydrated. Given reported chills will order NS @ 50cc/hr until observed adequate IVF monitor electrolytes diabetic diet DVT on plavix at home-will hold dose in am pending potential wound procedures Dispo admit to med surg bed full code discharge planning Code(s): Z29.9 - ENCOUNTER FOR PROPHYLACTIC MEASURES, UNSPECIFIED (3) Diabetic foot ulcer Assessment/Plan: treated by Dr Carter for chronic foot ulcers MRI right foot: subcutaneous abscess at this level measuring 2.2 cm in AP dimension, 9 mm in width and 1.7 cm in height. No osteo appreciate ID consultation c/w vanco and zosyn Code(s): E11.621 - TYPE 2 DIABETES MELLITUS WITH FOOT ULCER; L97.509 - NON- PRESSURE CHRONIC ULCER OTH PRT UNSP FOOT W UNSP SEVERITY Qualifiers: Diabetic foot ulcer location: heel Diabetes mellitus type: type 2 Laterality: right (4) Hyperlipidemia Assessment/Plan: low fat/cholesterol diet c\w home dose of atorvastin Code(s): E78.5 - HYPERLIPIDEMIA, UNSPECIFIED Qualifiers: Hyperlipidemia type: pure hypercholesterolemia Qualified Code(s): E78.00 - Pure hypercholesterolemia, unspecified; E78.0 - Pure hypercholesterolemia (5) PVD (peripheral vascular disease) Assessment/Plan: followed by Dr Santoyo for hyperbaric oxygen therapy wound care as per podiatry c/w ambulation with scooter to decrease pressure on open wounds Code(s): I73.9 - PERIPHERAL VASCULAR DISEASE, UNSPECIFIED (6) Non-ischemic cardiomyopathy Assessment/Plan: nonischemic dilated cardiomyopathy (initially LVEF 15% on initial diagnosis 2008 , most recent EF 35-45%) will consult cardiology for managment while in patient c/w home doses of ASA 81 qd, Lipitor 40 qd, carvedilol 6.26 bid, lisinopril 5 qd will hold Plavix for now pending potential wound procedure Code(s): I42.8 - OTHER CARDIOMYOPATHIES Visit type - Emergency Visit Emergency Visit: Yes ED Registration Date: 12/23/18 Care time: The patient presented to the Emergency Department on the above date and was hospitalized for further evaluation of their emergent condition. - New Patient This patient is new to me today: No - Critical Care Critical Care patient: No - Discharge Referral Referred to [facility] Med P.C.: No
[2018-12-24 09:01] LABS: INR 1.07 (0.83-1.09); PROTHROMBIN TIME (PATIENT) 12.6 SEC (9.7-13.0)
[2018-12-24 09:18] LABS: ALBUMIN 2.8 g/dl (3.4-5.0); BILIRUBIN,TOTAL 0.4 mg/dL (0.2-1); BLOOD UREA NITROGEN 15.2 mg/dL (7-18); CALCIUM 8.9 mg/dL (8.5-10.1); CREATININE 1.2 mg/dL (0.55-1.3); MAGNESIUM 2.3 mg/dL (1.8-2.4); POTASSIUM 4.6 mmol/L (3.5-5.1); TOT PROT 6.4 g/dl (6.4-8.2)
[2018-12-24 09:30] LABS: BASO % 1.1 % (0-2.0); EOS % 10.3 % (0-4.5); HEMATOCRIT 30.5 % (35.4-49); HEMOGLOBIN 9.9 GM/dL (11.7-16.9); LYMPH % 12.9 % (8-40); MCH 26.5 pg (25.7-33.7); MCHC 32.4 g/dl (32.0-35.9); MEAN CELL VOLUME 81.7 fl (80-96); MEAN PLT VOLUME 9.5 fl (7.5-11.1); MONO % 12.3 % (3.8-10.2); NEUT % 63.4 % (42.8-82.8); PLATELET COUNT 218 K/MM3 (134-434); RBC 3.74 M/mm3 (4.00-5.60); RDW 15.9 % (11.9-15.9); WHITE BLOOD COUNT 4.1 K/mm3 (4.0-10.0)
[2018-12-24] MEDS ORDERED: VANCOMYCIN 1 GM in D5W (PRE-DOCKED) 1,000 MG/250 ML IVPB SCH ×2 (10:00→14:00)
[2018-12-24] MEDS ORDERED: INSULIN (LEVEMIR) 100 UNITS/ML UNITS SQ SCH (10:00)
[2018-12-24] MEDS ORDERED: CARVEDILOL 6.25 MG TABLET (FP) PO SCH (10:00)
[2018-12-24] MEDS ORDERED: LISINOPRIL 5 MG TABLET (FP) PO SCH (10:00)
[2018-12-24] MEDS: LISINOPRIL 5 MG TABLET (FP) PO SCH (10:15)
[2018-12-24] MEDS: HEPARIN NA (PORCINE) 5,000 UNITS/ML 1ML VIAL SQ SCH ×2 (10:15→21:35)
[2018-12-24] MEDS: ASPIRIN 81 MG CHEWABLE TABLETS PO SCH (10:15)
[2018-12-24] MEDS: CARVEDILOL 6.25 MG TABLET (FP) PO SCH ×2 (10:15→21:34)
[2018-12-24] MEDS: COLLAGENASE CLOSTRIDIUM HIST. 30 GRAMS TUBE TP SCH (10:16)
--- NOTE | 2018-12-24 12:07 | PN ---
Progress Note (short form) - Note Progress Note: ID consult dictated imp/reccd 58 yo man known to me recent admission for bilateral foot ulcers- mri negative, discharged on bactrim for none week now with 5 days of swellng right heel adjacent to heel ulcer (very clean) +chills just started HBO given vancomycin and zosyn in ED gives history of remote allergy to penicillin as a young man with a rash on his back will switch to vanco/cefepime (has eos on his differential) no rash now foot ulcers bilateral are clean MRI with left heel abscess continue vanco/cefepime f/u blood cultures podiatry f/u diabetes penicillin allergy further reccd to follow Problem List - Problems (1) Abscess of heel Code(s): L02.619 - CUTANEOUS ABSCESS OF UNSPECIFIED FOOT (2) Diabetes Code(s): E11.9 - TYPE 2 DIABETES MELLITUS WITHOUT COMPLICATIONS (3) Penicillin allergy Code(s): Z88.0 - ALLERGY STATUS TO PENICILLIN
--- NOTE | 2018-12-24 16:37 | CON.CARD ---
Consult Consult Specialty:: Cardiology Referred by:: Hospitalist Medicine Reason for Consultation:: Cardiomyopathy, pre-op CV evaluation - History of Present Illness Chief Complaint: Right heel wound History of Present Illness: 58 y/o male h/o nonischemic dilated cardiomyopathy (initially LVEF 15% on initial diagnosis 2008, most recent EF 35-45%), IDDM, gastroparesis, peripheral neuropathy, PAD with chronic right heel wound and big toe amputation recently started HBO2 recent admission for atypical chest pain presented with 5 days of swelling and purulent drainage from the right heel adjacent to heel ulcer (very clean) and chills w/o fevers, placed on vanco/cefepime. MRI shows right heel cellulitis/abscess w/o osteomyelitis. Patient remains asymptomatic from CV- standpoint and denies chest pain, dyspnea, near or true syncope, palpitations, orthopnea, PND, LE edema. 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: Peripheral Neuropathy, Other (LP 2 years ago- followed by neurologist ) Cardio/Vascular: Yes: CHF (EF 35-55%), HTN Gastrointestinal: Yes: Other (gastroparesis) Infectious Disease: Yes: Other (non healing foot ulcers on both) Endocrine: Yes: Diabetes Mellitus - Past Surgical History Past Surgical History: Yes: Amputation (right great toe), Hernia Repair - Alcohol/Substance Use Hx Alcohol Use: No - Smoking History Smoking history: Never smoked Have you smoked in the past 12 months: No If you are a former smoker, when did you quit?: 20 YEARS AGO - Social History Usual Living Arrangement: Alone ADL: Independent 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 History of Recent Travel: No Home Medications - Allergies Allergies/Adverse Reactions: Allergies Allergy/AdvReac Type Severity Reaction Status Date / Time Penicillins Allergy Verified 12/23/18 10:42 - Home Medications Home Medications: Ambulatory Orders Aspirin [ASA -] 81 mg PO DAILY 12/23/18 Atorvastatin Ca [Lipitor] 40 mg PO HS 12/23/18 Carvedilol [Coreg] 6.25 mg PO DAILY 12/23/18 Clopidogrel Bisulfate [Clopidogrel] 75 mg PO DAILY 12/23/18 Insulin (Levemir) [Levemir Vial] 10 units SQ DAILY 12/23/18 Lisinopril 5 mg PO DAILY 12/23/18 Review of Systems - Review of Systems Musculoskeletal: reports: Extremity Pain Vital Signs: Vital Signs Temperature 97.8 F 12/24/18 14:39 Pulse Rate 84 12/24/18 14:39 Respiratory Rate 20 12/24/18 14:39 Blood Pressure 112/67 12/24/18 14:39 O2 Sat by Pulse Oximetry (%) 98 12/24/18 09:00 Constitutional: Yes: No Distress, Calm Neck: Yes: Supple Respiratory: Yes: Regular, CTA Bilaterally Gastrointestinal: Yes: Normal Bowel Sounds, Soft Cardiovascular: Yes: Regular Rate and Rhythm JVD: No Carotid Bruit: No Heart Sounds: Yes: S1, S2 Edema: No - Other Data Labs, Other Data: CBC, BMP 12/24/18 07:40 12/24/18 07:40 INR, PTT INR 1.07 (0.83-1.09) 12/24/18 07:40 Ejection Fraction %: LVEF < 40 % Problem List - Problems (1) Diabetic foot ulcer Code(s): E11.621 - TYPE 2 DIABETES MELLITUS WITH FOOT ULCER; L97.509 - NON- PRESSURE CHRONIC ULCER OTH PRT UNSP FOOT W UNSP SEVERITY Qualifiers: Diabetic foot ulcer location: heel Diabetes mellitus type: type 2 Laterality: right (2) Hypertensive cardiomyopathy Code(s): I11.9 - HYPERTENSIVE HEART DISEASE WITHOUT HEART FAILURE; I43 - CARDIOMYOPATHY IN DISEASES CLASSIFIED ELSEWHERE Qualifiers: Heart failure presence: without heart failure Qualified Code(s): I11.9 - Hypertensive heart disease without heart failure; I43 - Cardiomyopathy in diseases classified elsewhere (3) Nonischemic dilated cardiomyopathy Code(s): I42.0 - DILATED CARDIOMYOPATHY (4) PVD (peripheral vascular disease) Code(s): I73.9 - PERIPHERAL VASCULAR DISEASE, UNSPECIFIED (5) Pre-operative cardiovascular examination Code(s): Z01.810 - ENCOUNTER FOR PREPROCEDURAL CARDIOVASCULAR EXAMINATION Assessment/Plan 2009 Nonobstructive CAD 08/2017 Lexiscan MPI: No perfusion defects, mild-mod HK LVEF 39% 07/10/2018 Echo: Normal LV size with borderline LVH, grade I diastolic dysfxn, normal RV size and fxn, normal atrial sizes, tr TR, AR 1. Pre-operative cardiovascular evaluation 2. PAD with chronic non-healing heel ulcers, right big toe amputation and left heel cellulitis/abscess 3. Nonischemic dilated cardiomyopathy LVEF 35-45% on most recent echo 4. Insulin-dependent type 2 DM c/b peripheral neuropathy and gastroparesis 5. HTN 6. Hyperlipidemia 7. PCN Allergy P:1. IV abx per C&S, podiatry input, plan for incision and drainage, possible bone biopsy in OR, 2. Given absence of symptoms of acute coronary syndrome, decompensated CHF or malignant arrhythmia and negative 2018 MPI for ischemia, may proceed from CV- standpoint from CV standpoint w/o further testing 3. Hold ASA 81 qd pending procedure, continue Lipitor 40 qd, carvedilol 6.26 bid , lisinopril 5 qd, Plavix 75 qd 4. Reviewed records from [facility], [place] 5. Patient prefers transfer cardiology f/u to local office, he may see us in office upon d/c 6. Thank you for consultative opportunity
[2018-12-24] MEDS ORDERED: DEXTROSE 5%-WATER 100 ML IVPB ONE (17:00)
[2018-12-24] MEDS ORDERED: CEFEPIME HCL 1 GM VIAL (RESTRICTED TO ID) ONE (17:00)
[2018-12-24] MEDS: CEFEPIME 1 GM in DEXTROSE 5%-WATER 100 ML IVPB SCH (17:14)
--- NOTE | 2018-12-24 19:07 | CONS ---
DATE OF CONSULTATION: 12/23/2018 REQUESTED BY: Hospitalist Service This is a 58-year-old man who I originally met in November when he was admitted from December 02 to December 06, 2018. At that time, he presented with a worsening ulcer on his right heel. He is a long-standing diabetic who has peripheral vascular disease. He is status post angioplasty to the right lower extremity with plans for left lower extremity angioplasty. He had a heel MRI done that was negative for osteomyelitis. He was treated with IV antibiotics - vancomycin and cefepime - and was discharged on Bactrim. He states he did well after discharge. He took his Bactrim as planned. He followed up with wound care and hyperbaric and has just started hyperbaric treatment. In the interim, he had a 48-your admission for an episode of chest pain from hyperbaric clinic. Yesterday, he was readmitted to the hospital. He complained of a lateral heel redness adjacent to the ulcer on his right leg. 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 He notes that he has been having chills for five days. He uses a scooter to ambulate. He was seen last night and was started on vancomycin and Zosyn. I am asked to see him for antibiotic recommendations. He has had a repeat MRI which showed no evidence of osteomyelitis but shows a small abscess in the heel which the patient was informed of. PAST MEDICAL/SURGICAL HISTORY: Notable for peripheral neuropathy, history of congestive heart failure with an ejection fraction of 35%, gastroparesis, non-healing foot ulcers, peripheral vascular disease, diabetes. He is status post amputation of his right great toe and hernia repair. He is also status post right lower extremity angioplasty done in September 2018. SOCIAL HISTORY: He lives alone. He is independent. He is on disability. 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 He has no history of recent travel. He is a former smoker. No history of substance use. FAMILY HISTORY: Noncontributory. ALLERGIES: PENICILLIN, which apparently gave him a rash on his back many years ago. PHYSICAL EXAMINATION: GENERAL: He is awake and alert. VITALS: Temperature is 98.4, pulse is 79, blood pressure 122/74, respiratory rate 20. HEENT: Normocephalic. Eyes are anicteric. NECK: Supple. LUNGS: Clear to auscultation. HEART: Regular rate and rhythm. ABDOMEN: Soft, nontender. EXTREMITIES: Notable for a right heel ulcer that is quite clean. Adjacent to this is a small area of fluctuance. His left leg has a large area of superficial ulcer that is also clean with a callous . LABS: Yesterday, his white count was 7.6; today, it is 4.1. Hemoglobin of 9.9, platelets of 218,000. His BUN and creatinine are 15 and 1.2, respectively. A urinalysis is negative. Cultures are pending. IN SUMMARY: This is a 58-year-old man admitted with a left heel abscess. I would continue vancomycin and cefepime, as he gives a remote history to ALLERGY TO PENICILLIN as a young man. We will perform followup blood cultures and await podiatry followup for drainage of his abscess. Hopefully, cultures will be sent at that time. VARINDER BRAXTON M.D. [id number]
[2018-12-24] MEDS: ATORVASTATIN CA 40 MG TABLET (FP) PO SCH (21:35)
[2018-12-25] MEDS ORDERED: SODIUM CHLORIDE 1,000 ML IV SCH (00:01)
[2018-12-25] MEDS ORDERED: CEFEPIME HCL 1 GM VIAL (RESTRICTED TO ID) ONE ×3 (01:27→16:43)
[2018-12-25] MEDS ORDERED: DEXTROSE 5%-WATER 100 ML IVPB ONE ×3 (01:28→16:43)
[2018-12-25] MEDS: CEFEPIME 1 GM in DEXTROSE 5%-WATER 100 ML IVPB SCH ×3 (01:52→17:04)
[2018-12-25] MEDS: INSULIN (LEVEMIR) 100 UNITS/ML UNITS SQ SCH (06:24)
[2018-12-25] MEDS: INSULIN SLIDING SCALE (NOVOLOG) 1 VIAL SQ SCH ×4 (06:25→21:22)
[2018-12-25] MEDS ORDERED: INSULIN (NOVOLOG) ASPART 100 UNITS/ML 10ML VIAL ONE ×2 (06:40→16:55)
[2018-12-25 08:08] LABS: EOS % 7.1 % (0-4.5); HEMATOCRIT 34.2 % (35.4-49); HEMOGLOBIN 11.1 GM/dL (11.7-16.9); LYMPH % 17.7 % (8-40); MCH 26.7 pg (25.7-33.7); MCHC 32.5 g/dl (32.0-35.9); MEAN CELL VOLUME 82.2 fl (80-96); MEAN PLT VOLUME 9.6 fl (7.5-11.1); MONO % 8.8 % (3.8-10.2); NEUT % 65.4 % (42.8-82.8); PLATELET COUNT 283 K/MM3 (134-434); RBC 4.16 M/mm3 (4.00-5.60); RDW 15.9 % (11.9-15.9); WHITE BLOOD COUNT 5.6 K/mm3 (4.0-10.0)
[2018-12-25 08:12] LABS: INR 1.02 (0.83-1.09)
--- NOTE | 2018-12-25 08:32 | PN ---
Progress Note, Physician Chief Complaint: non-healing foot ulcers. Pain to right heel persists History of Present Illness: The patient is a 58-year-old male, with a past medical history of CHF (EF 35-45% ), IDDM, gastroparesis, currently undergoing hyperbaric treatment for chronic foot wounds with Dr Beverly. Sent from his office for possible new R lateral heel redness and potential abscess. Patient states the right foot has been tender and draining since he left the hospital on 12/18/18. The patient denies fever, change in sensation of the foot, increased swelling but tstaes hes been having intermittent chills for 5 days. Denies n/v/d/c, chest pain, shortness of breath. Patient uses a scooter to ambulate. Dr Andrade following pt - Current Medication List Current Medications: Active Medications Aspirin (Asa -) 81 mg PO DAILY [facility] Last Admin: 12/24/18 10:15 Dose: 81 mg Atorvastatin Calcium (Lipitor -) 40 mg PO HS [facility] Last Admin: 12/24/18 21:35 Dose: 40 mg Carvedilol (Coreg -) 6.25 mg PO BID HER[facility] Last Admin: 12/24/18 21:34 Dose: 6.25 mg Collagenase (Santyl -) 1 applic TP DAILY [facility]; Protocol Last Admin: 12/24/18 10:16 Dose: Not Given Heparin Sodium (Porcine) (Heparin -) 5,000 unit SQ BID HERON Last Admin: 12/24/18 21:35 Dose: 5,000 unit Cefepime HCl 1 gm/ Dextrose 100 mls @ 200 mls/hr IVPB Q8H-IV [facility]; Protocol Last Admin: 12/25/18 01:52 Dose: 200 mls/hr Vancomycin HCl (Vancomycin (Pre-Docked)) 1,000 mg in 250 mls @ 166.667 mls/hr IVPB Q24H [facility]; Protocol Sodium Chloride (Normal Saline -) 1,000 mls @ 75 mls/hr IV ASDIR [facility] Last Admin: 12/25/18 00:01 Dose: 75 mls/hr Insulin Aspart (Novolog Vial Sliding Scale -) 1 vial SQ ACHS [facility]; Protocol Last Admin: 12/25/18 06:25 Dose: Not Given Insulin Detemir (Levemir Vial) 10 units SQ AM [facility] Last Admin: 12/25/18 06:24 Dose: Not Given Lisinopril (Prinivil) 5 mg PO DAILY [facility] Last Admin: 12/24/18 10:15 Dose: 5 mg - Objective Vital Signs: Vital Signs Temperature 97.8 F 12/25/18 06:00 Pulse Rate 82 12/25/18 06:00 Respiratory Rate 20 12/24/18 22:00 Blood Pressure 112/64 12/25/18 06:00 O2 Sat by Pulse Oximetry (%) 98 12/24/18 22:00 Constitutional: Yes: Well Nourished, No Distress, Calm Eyes: Yes: WNL, Conjunctiva Clear, EOM Intact HENT: Yes: WNL, Atraumatic, Normocephalic Neck: Yes: WNL, Supple, Trachea Midline Cardiovascular: Yes: WNL, Regular Rate and Rhythm Respiratory: Yes: WNL, Regular, CTA Bilaterally Gastrointestinal: Yes: WNL, Normal Bowel Sounds, Soft ...Rectal Exam: Yes: Deferred Genitourinary: Yes: WNL Breast(s): Yes: WNL Musculoskeletal: Yes: WNL Extremities: Yes: Amputation, Other (L foot: 6cm plantar ulcer, heel crusted over ulcer R foot: 1st digit amputation, 2cm heel ulcer, lateral plantar ulcer 2cm, lateral heel erythema 5cm) Edema: Yes Edema: LLE: Trace, RLE: Trace Peripheral Pulses WNL: Yes Integumentary: Yes: Other (L foot: 6cm plantar ulcer, heel crusted over ulcer R foot: 1st digit amputation, 2cm heel ulcer, lateral plantar ulcer 2cm, lateral heel erythema 5cm yellow drainage on dressing, not foul smelling) Neurological: Yes: WNL, Alert, Oriented ...Motor Strength: WNL Psychiatric: Yes: WNL, Alert, Oriented Labs: CBC, BMP 12/25/18 07:07 INR, PTT INR 1.02 (0.83-1.09) 12/25/18 07:07 Problem List - Problems (1) History of hyperbaric oxygen therapy Assessment/Plan: treated by Dr Carter for chronic foot ulcers Code(s): Z92.89 - PERSONAL HISTORY OF OTHER MEDICAL TREATMENT (2) Prophylactic measure Assessment/Plan: FEN NPO for pending OR-I & D heel monitor electrolytes diabetic diet DVT on plavix at home-will hold dose in am pending potential wound procedures Dispo med surg bed full code discharge planning Code(s): Z29.9 - ENCOUNTER FOR PROPHYLACTIC MEASURES, UNSPECIFIED (3) Diabetic foot ulcer Assessment/Plan: treated by Dr Carter for chronic foot ulcers MRI right foot: subcutaneous abscess at this level measuring 2.2 cm in AP dimension, 9 mm in width and 1.7 cm in height. No osteo appreciate ID consultation c/w vanco and zosyn plan for OR today Code(s): E11.621 - TYPE 2 DIABETES MELLITUS WITH FOOT ULCER; L97.509 - NON- PRESSURE CHRONIC ULCER OTH PRT UNSP FOOT W UNSP SEVERITY Qualifiers: Diabetic foot ulcer location: heel Diabetes mellitus type: type 2 Laterality: right (4) Hyperlipidemia Assessment/Plan: low fat/cholesterol diet post surgery c\w home dose of atorvastin Code(s): E78.5 - HYPERLIPIDEMIA, UNSPECIFIED Qualifiers: Hyperlipidemia type: pure hypercholesterolemia Qualified Code(s): E78.00 - Pure hypercholesterolemia, unspecified; E78.0 - Pure hypercholesterolemia (5) PVD (peripheral vascular disease) Assessment/Plan: followed by Dr Santoyo for hyperbaric oxygen therapy wound care as per podiatry c/w ambulation with scooter to decrease pressure on open wounds Code(s): I73.9 - PERIPHERAL VASCULAR DISEASE, UNSPECIFIED (6) Non-ischemic cardiomyopathy Assessment/Plan: nonischemic dilated cardiomyopathy (initially LVEF 15% on initial diagnosis 2008 , most recent EF 35-45%) will consult cardiology for managment while in patient c/w Lipitor 40 qd, carvedilol 6.26 bid, lisinopril 5 qd will hold Plavix & ASA for OR Code(s): I42.8 - OTHER CARDIOMYOPATHIES Visit type - Emergency Visit Emergency Visit: Yes ED Registration Date: 12/23/18 Care time: The patient presented to the Emergency Department on the above date and was hospitalized for further evaluation of their emergent condition. - New Patient This patient is new to me today: No - Critical Care Critical Care patient: No - Discharge Referral Referred to [facility] Med P.C.: No
[2018-12-25 08:39] LABS: ALBUMIN 3.1 g/dl (3.4-5.0); BILIRUBIN,TOTAL 0.6 mg/dL (0.2-1); BLOOD UREA NITROGEN 16.9 mg/dL (7-18); CALCIUM 8.8 mg/dL (8.5-10.1); CREATININE 1.2 mg/dL (0.55-1.3); MAGNESIUM 2.2 mg/dL (1.8-2.4); POTASSIUM 4.3 mmol/L (3.5-5.1); TOT PROT 7.2 g/dl (6.4-8.2)
[2018-12-25] MEDS ORDERED: LIDOCAINE HCL 2% (20ML MULTI-DOSE VIAL) NR ONE (10:31)
[2018-12-25] MEDS ORDERED: PROPOFOL 20 ML ONE (10:41)
[2018-12-25] MEDS ORDERED: MIDAZOLAM HCL 2 MG/2 ML SINGLE DOSE VIAL ONE (10:42)
[2018-12-25] MEDS ORDERED: LIDOCAINE HCL 2% (50ML VIAL) SQ ONE (10:48)
[2018-12-25] MEDS ORDERED: BACITRACIN 50,000 UNITS VIAL NR ONE (11:07)
--- NOTE | 2018-12-25 11:20 | OP ---
Operative Note - Note: Operative Date: 12/25/18 Pre-Operative Diagnosis: Right heel abscess Operation: see dictatio Findings: right heel abscess Implants: none Post-Operative Diagnosis: Same as Pre-op Surgeon: Solomon Silva Anesthesia: Local, MAC Estimated Blood Loss (mls): 15 Operative Report Dictated: Yes
[2018-12-25] MEDS: SODIUM CHLORIDE 1,000 ML IV SCH (12:00)
[2018-12-25] MEDS ORDERED: VANCOMYCIN 1 GRAM (PRE-DOCKED) 1,000 MG/250 ML BAG IVPB SCH (14:00)
[2018-12-25] MEDS: VANCOMYCIN 1 GRAM (PRE-DOCKED) 1,000 MG/250 ML BAG IVPB SCH (14:45)
[2018-12-25] MEDS: HEPARIN NA (PORCINE) 5,000 UNITS/ML 1ML VIAL SQ SCH ×2 (19:29→21:22)
[2018-12-25] MEDS: CARVEDILOL 6.25 MG TABLET (FP) PO SCH ×2 (19:29→21:22)
[2018-12-25] MEDS: ASPIRIN 81 MG CHEWABLE TABLETS PO SCH (19:29)
[2018-12-25] MEDS: LISINOPRIL 5 MG TABLET (FP) PO SCH (19:30)
[2018-12-25] MEDS: COLLAGENASE CLOSTRIDIUM HIST. 30 GRAMS TUBE TP SCH (19:30)
[2018-12-25] MEDS: ATORVASTATIN CA 40 MG TABLET (FP) PO SCH (21:22)
[2018-12-25] MEDS ORDERED: oxyCODONE HCL 5 MG TABLET PO ONE (23:08)
[2018-12-25] MEDS ORDERED: ACETAMINOPHEN 325 MG TABLET (FP) PO PRN (23:08)
[2018-12-25] MEDS ORDERED: oxyCODONE/APAP 1 EACH - MUST ORDER COMBO PRODUCT NR ONE (23:09)
[2018-12-26] MEDS: SODIUM CHLORIDE 1,000 ML IV SCH ×2 (00:49→11:50)
[2018-12-26] MEDS ORDERED: CEFEPIME HCL 1 GM VIAL (RESTRICTED TO ID) ONE ×3 (02:41→17:10)
[2018-12-26] MEDS ORDERED: DEXTROSE 5%-WATER 100 ML IVPB ONE ×3 (02:42→17:10)
[2018-12-26] MEDS: CEFEPIME 1 GM in DEXTROSE 5%-WATER 100 ML IVPB SCH ×3 (02:52→17:17)
[2018-12-26] MEDS: INSULIN (LEVEMIR) 100 UNITS/ML UNITS SQ SCH (06:42)
[2018-12-26] MEDS: INSULIN SLIDING SCALE (NOVOLOG) 1 VIAL SQ SCH ×4 (06:42→21:25)
--- NOTE | 2018-12-26 07:46 | PN ---
Progress Note (short form) - Note Progress Note: 58 y/o diabetic male with abscess seen POD 1 for right heel incision and drainage. States feeling well today. Had minimal pain yesterday but no pain today. Is hoping to go home soon. O: Right foot incision site on lateral heel with sutures intact, packing in place and pulled w/o complication, decreasing erythema, no further underlying palpable mass noted, no purulence draiange noted, mild hematogenous drainage noted, no ascending streaking, no pain on palpation, plantar heel ulceration noted, no bone exposed with granulation tissue, 5th MPJ ulceration , no bone exposed no signs of infection A: POD #1 right incision and drainage foot. P: Evaluated and reviewed packing pulled f/u cultures taken intra op looking improved redressed will f/u.
[2018-12-26 08:48] LABS: BASO % 0.9 % (0-2.0); EOS % 5.4 % (0-4.5); HEMATOCRIT 31.7 % (35.4-49); HEMOGLOBIN 10.1 GM/dL (11.7-16.9); LYMPH % 13.3 % (8-40); MCH 26.4 pg (25.7-33.7); MCHC 31.9 g/dl (32.0-35.9); MEAN CELL VOLUME 82.8 fl (80-96); MEAN PLT VOLUME 9.2 fl (7.5-11.1); NEUT % 67.4 % (42.8-82.8); PLATELET COUNT 202 K/MM3 (134-434); RBC 3.83 M/mm3 (4.00-5.60); WHITE BLOOD COUNT 5.4 K/mm3 (4.0-10.0)
[2018-12-26 09:04] LABS: PROTHROMBIN TIME (PATIENT) 11.8 SEC (9.7-13.0)
[2018-12-26 09:13] LABS: ALBUMIN 2.8 g/dl (3.4-5.0); BILIRUBIN,TOTAL 0.2 mg/dL (0.2-1); BLOOD UREA NITROGEN 13.3 mg/dL (7-18); CALCIUM 8.5 mg/dL (8.5-10.1); MAGNESIUM 2.3 mg/dL (1.8-2.4); POTASSIUM 4.2 mmol/L (3.5-5.1); TOT PROT 6.7 g/dl (6.4-8.2)
--- NOTE | 2018-12-26 09:27 | PN ---
Progress Note, Physician Chief Complaint: non-healing foot ulcers. POD#1 I&D or heel abcess History of Present Illness: The patient is a 58-year-old male, with a past medical history of CHF (EF 35-45% ), IDDM, gastroparesis, currently undergoing hyperbaric treatment for chronic foot wounds with Dr Beverly. Sent from his office for possible new R lateral heel redness and potential abscess. Patient states the right foot has been tender and draining since he left the hospital on 12/18/18. The patient denies fever, change in sensation of the foot, increased swelling but tstaes hes been having intermittent chills for 5 days. Denies n/v/d/c, chest pain, shortness of breath. Patient uses a scooter to ambulate. Dr Andrade following pt - Current Medication List Current Medications: Active Medications Acetaminophen (Tylenol -) 650 mg PO Q4H PRN PRN Reason: PAIN Last Admin: 12/25/18 23:18 Dose: 650 mg Aspirin (Asa -) 81 mg PO DAILY [facility] Atorvastatin Calcium (Lipitor -) 40 mg PO HS [facility]ON Last Admin: 12/25/18 21:22 Dose: 40 mg Carvedilol (Coreg -) 6.25 mg PO BID [facility] Last Admin: 12/25/18 21:22 Dose: 6.25 mg Collagenase (Santyl -) 1 applic TP DAILY [facility]; Protocol Heparin Sodium (Porcine) (Heparin -) 5,000 unit SQ BID [facility] Last Admin: 12/25/18 21:22 Dose: 5,000 unit Cefepime HCl 1 gm/ Dextrose 100 mls @ 200 mls/hr IVPB Q8H-IV [facility]; Protocol Last Admin: 12/26/18 02:52 Dose: 200 mls/hr Sodium Chloride (Normal Saline -) 1,000 mls @ 75 mls/hr IV ASDIR [facility] Last Admin: 12/26/18 00:49 Dose: 75 mls/hr Vancomycin HCl (Vancomycin (Pre-Docked)) 1,000 mg in 250 mls @ 166.667 mls/hr IVPB Q24H [facility]; Protocol Last Admin: 12/25/18 14:45 Dose: 166.667 mls/hr Insulin Aspart (Novolog Vial Sliding Scale -) 1 vial SQ ACHS [facility]; Protocol Last Admin: 12/26/18 06:42 Dose: Not Given Insulin Detemir (Levemir Vial) 10 units SQ AM [facility] Last Admin: 12/26/18 06:42 Dose: 10 units Lisinopril (Prinivil) 5 mg PO DAILY [facility] - Objective Vital Signs: Vital Signs Temperature 97.4 F L 12/26/18 05:00 Pulse Rate 73 12/26/18 05:00 Respiratory Rate 20 12/25/18 21:25 Blood Pressure 94/58 L 12/26/18 05:00 O2 Sat by Pulse Oximetry (%) 98 12/25/18 21:00 Constitutional: Yes: Well Nourished, No Distress, Calm Eyes: Yes: WNL, Conjunctiva Clear, EOM Intact HENT: Yes: WNL, Atraumatic, Normocephalic Neck: Yes: WNL, Supple, Trachea Midline Cardiovascular: Yes: WNL, Regular Rate and Rhythm Respiratory: Yes: WNL, Regular, CTA Bilaterally Gastrointestinal: Yes: WNL, Normal Bowel Sounds, Soft ...Rectal Exam: Yes: Deferred Genitourinary: Yes: WNL Breast(s): Yes: WNL Musculoskeletal: Yes: WNL Extremities: Yes: Amputation, Other (L foot: 6cm plantar ulcer, heel crusted over ulcer) Edema: No Peripheral Pulses WNL: No Peripheral Pulses: Left Doralis Pedis: 1+, Right Dorsalis Pedis: 1+ Integumentary: Yes: Incision Wound/Incision: Yes: Clean/Dry, Well Approximated, Sutures Intact, Dressing Dry and Intact (Right foot incision site on lateral heel with sutures intact, no purulence drainage noted, mild hematogenous drainage noted, no ascending streaking, no pain on palpation, plantar heel ulceration noted, no bone exposed with granulation tissue, 5th MPJ ulceration , no bone exposed no signs of infection) Neurological: Yes: WNL, Alert, Oriented ...Motor Strength: WNL Psychiatric: Yes: WNL, Alert, Oriented Labs: CBC, BMP 12/26/18 08:00 12/26/18 08:00 INR, PTT INR 1.00 (0.83-1.09) 12/26/18 08:00 Problem List - Problems (1) History of hyperbaric oxygen therapy Assessment/Plan: treated by Dr Carter for chronic foot ulcers Code(s): Z92.89 - PERSONAL HISTORY OF OTHER MEDICAL TREATMENT (2) Prophylactic measure Assessment/Plan: FEN NPO for pending OR-I & D heel monitor electrolytes diabetic diet DVT on plavix/asa at home-will hold dose tonight restart when post-op hemestasis achieved Dispo med surg bed full code discharge planning Code(s): Z29.9 - ENCOUNTER FOR PROPHYLACTIC MEASURES, UNSPECIFIED (3) Diabetic foot ulcer Assessment/Plan: treated by Dr Carter for chronic foot ulcers POD# 1 for right heel abscess incision and drainage c/w vanco/cefepime Code(s): E11.621 - TYPE 2 DIABETES MELLITUS WITH FOOT ULCER; L97.509 - NON- PRESSURE CHRONIC ULCER OTH PRT UNSP FOOT W UNSP SEVERITY Qualifiers: Diabetic foot ulcer location: heel Diabetes mellitus type: type 2 Laterality: right (4) Hyperlipidemia Assessment/Plan: low fat/cholesterol diet post surgery c\w home dose of atorvastin Code(s): E78.5 - HYPERLIPIDEMIA, UNSPECIFIED Qualifiers: Hyperlipidemia type: pure hypercholesterolemia Qualified Code(s): E78.00 - Pure hypercholesterolemia, unspecified; E78.0 - Pure hypercholesterolemia (5) PVD (peripheral vascular disease) Assessment/Plan: followed by Dr Santoyo for hyperbaric oxygen therapy wound care as per podiatry c/w ambulation with scooter to decrease pressure on open wounds Code(s): I73.9 - PERIPHERAL VASCULAR DISEASE, UNSPECIFIED (6) Non-ischemic cardiomyopathy Assessment/Plan: nonischemic dilated cardiomyopathy (initially LVEF 15% on initial diagnosis 2008 , most recent EF 35-45%) c/w Lipitor 40 qd, carvedilol 6.26 bid, lisinopril 5 qd will hold Plavix & ASA Code(s): I42.8 - OTHER CARDIOMYOPATHIES Visit type - Emergency Visit Emergency Visit: Yes ED Registration Date: 12/23/18 Care time: The patient presented to the Emergency Department on the above date and was hospitalized for further evaluation of their emergent condition. - New Patient This patient is new to me today: No - Critical Care Critical Care patient: No - Discharge Referral Referred to [facility] Med P.C.: No
[2018-12-26] MEDS: LISINOPRIL 5 MG TABLET (FP) PO SCH (09:34)
[2018-12-26] MEDS: CARVEDILOL 6.25 MG TABLET (FP) PO SCH ×2 (09:34→21:24)
[2018-12-26] MEDS: ASPIRIN 81 MG CHEWABLE TABLETS PO SCH (09:34)
[2018-12-26] MEDS: HEPARIN NA (PORCINE) 5,000 UNITS/ML 1ML VIAL SQ SCH ×2 (09:35→21:24)
--- NOTE | 2018-12-26 13:22 | PN ---
Progress Note (short form) - Note Progress Note: some bleeding from the operative site noted on dressing-changed by podiatry earlier today s/p drainage of abscess pod #2 Vital Signs Period Temp Pulse Resp BP Sys/Dominguez Pulse Ox Last 24 Hr 97.4 F-99.8 F 70-97 20-20 94-139/58-83 98-100 cor-rrr lungs clear abd soft,nt ext dressing intact CBC, BMP 12/26/18 08:00 12/26/18 08:00 Microbiology 12/23/18 12:48 Blood - Peripheral Venous Blood Culture - Preliminary NO GROWTH OBTAINED AFTER 72 HOURS, INCUBATION TO CONTINUE FOR 2 DAYS. 12/23/18 12:48 Blood - Peripheral Venous Blood Culture - Preliminary NO GROWTH OBTAINED AFTER 72 HOURS, INCUBATION TO CONTINUE FOR 2 DAYS. 12/25/18 11:00 Foot - Right Heel Gram Stain - Final 12/25/18 11:00 Foot - Right Heel Wound Culture - Preliminary NO GROWTH OBTAINED AFTER 24 HOURS INCUBATION, REINCUBATED. a/p s/p drainage of heel abscess operative culture is negative, gram stain no polys no organisms! continue vanco/cefepime check vancomycin trough today podiatry f/u history of PVD history of Diabetes when cleared for discharge, can switch to po bactrim for 2 weeks
[2018-12-26] MEDS: VANCOMYCIN 1 GRAM (PRE-DOCKED) 1,000 MG/250 ML BAG IVPB SCH (14:20)
[2018-12-26] MEDS: COLLAGENASE CLOSTRIDIUM HIST. 30 GRAMS TUBE TP SCH (14:22)
--- NOTE | 2018-12-26 15:01 | PN ---
Progress Note, Physician History of Present Illness: POD#1 for right heel abscess incision and drainage, post-op pain managed. Denies chest pain and dyspnea. - Current Medication List Current Medications: Active Medications Acetaminophen (Tylenol -) 650 mg PO Q4H PRN PRN Reason: PAIN Last Admin: 12/25/18 23:18 Dose: 650 mg Aspirin (Asa -) 81 mg PO DAILY [facility] Last Admin: 12/26/18 09:34 Dose: 81 mg Atorvastatin Calcium (Lipitor -) 40 mg PO HS [facility] Last Admin: 12/25/18 21:22 Dose: 40 mg Carvedilol (Coreg -) 6.25 mg PO BID [facility] Last Admin: 12/26/18 09:34 Dose: 6.25 mg Collagenase (Santyl -) 1 applic TP DAILY [facility]; Protocol Last Admin: 12/26/18 14:22 Dose: Not Given Heparin Sodium (Porcine) (Heparin -) 5,000 unit SQ BID [facility] Last Admin: 12/26/18 09:35 Dose: 5,000 unit Cefepime HCl 1 gm/ Dextrose 100 mls @ 200 mls/hr IVPB Q8H-IV [facility]; Protocol Last Admin: 12/26/18 09:34 Dose: 200 mls/hr Sodium Chloride (Normal Saline -) 1,000 mls @ 75 mls/hr IV ASDIR [facility] Last Admin: 12/26/18 11:50 Dose: 75 mls/hr Vancomycin HCl (Vancomycin (Pre-Docked)) 1,000 mg in 250 mls @ 166.667 mls/hr IVPB Q24H [facility]; Protocol Last Admin: 12/26/18 14:20 Dose: 166.667 mls/hr Insulin Aspart (Novolog Vial Sliding Scale -) 1 vial SQ ACHS [facility]; Protocol Last Admin: 12/26/18 11:39 Dose: Not Given Insulin Detemir (Levemir Vial) 10 units SQ AM [facility] Last Admin: 12/26/18 06:42 Dose: 10 units Lisinopril (Prinivil) 5 mg PO DAILY [facility] Last Admin: 12/26/18 09:34 Dose: 5 mg - Objective Vital Signs: Vital Signs Temperature 98.2 F 12/26/18 14:43 Pulse Rate 78 12/26/18 14:43 Respiratory Rate 20 12/26/18 09:00 Blood Pressure 149/88 12/26/18 14:43 O2 Sat by Pulse Oximetry (%) 100 12/26/18 09:00 Constitutional: Yes: No Distress, Calm Neck: Yes: Supple Cardiovascular: Yes: Regular Rate and Rhythm Respiratory: Yes: Regular, CTA Bilaterally Gastrointestinal: Yes: Normal Bowel Sounds, Soft Edema: No Wound/Incision: Yes: Dressing Dry and Intact Labs: CBC, BMP 12/26/18 08:00 12/26/18 08:00 INR, PTT INR 1.00 (0.83-1.09) 12/26/18 08:00 Problem List - Problems (1) Diabetic foot ulcer Code(s): E11.621 - TYPE 2 DIABETES MELLITUS WITH FOOT ULCER; L97.509 - NON- PRESSURE CHRONIC ULCER OTH PRT UNSP FOOT W UNSP SEVERITY Qualifiers: Diabetic foot ulcer location: heel Diabetes mellitus type: type 2 Laterality: right (2) Hypertensive cardiomyopathy Code(s): I11.9 - HYPERTENSIVE HEART DISEASE WITHOUT HEART FAILURE; I43 - CARDIOMYOPATHY IN DISEASES CLASSIFIED ELSEWHERE Qualifiers: Heart failure presence: without heart failure Qualified Code(s): I11.9 - Hypertensive heart disease without heart failure; I43 - Cardiomyopathy in diseases classified elsewhere (3) Nonischemic dilated cardiomyopathy Code(s): I42.0 - DILATED CARDIOMYOPATHY (4) PVD (peripheral vascular disease) Code(s): I73.9 - PERIPHERAL VASCULAR DISEASE, UNSPECIFIED Assessment/Plan 2010 Nonobstructive CAD 08/2017 Lexiscan MPI: No perfusion defects, mild-mod HK LVEF 39% 07/10/2018 Echo: Normal LV size with borderline LVH, grade I diastolic dysfxn, normal RV size and fxn, normal atrial sizes, tr TR, AR 1. POD# 1 for right heel abscess incision and drainage 2. PAD with chronic non-healing heel ulcers, right big toe amputation and left heel cellulitis/abscess 3. Nonischemic dilated cardiomyopathy LVEF 35-45% on most recent echo 4. Insulin-dependent type 2 DM c/b peripheral neuropathy and gastroparesis 5. HTN 6. Hyperlipidemia 7. PCN Allergy P:1. Continue vanco/cefepime course per C&S, wound care, HBO2 2. Will resume ASA 81 qd and Plavix 75 qd as post-op hemostasis achieved, continue Lipitor 40 qd, carvedilol 6.26 bid, lisinopril 5 qd 3. Reviewed records from [facility] 4. Patient prefers transfer cardiology f/u to local office, he may see us in office upon d/c
[2018-12-26] MEDS: ATORVASTATIN CA 40 MG TABLET (FP) PO SCH (21:24)
[2018-12-26] MEDS ORDERED: oxyCODONE HCL 5 MG TABLET PO ONE (21:39)
[2018-12-26] MEDS ORDERED: INSULIN (NOVOLOG) ASPART 100 UNITS/ML 10ML VIAL ONE (23:59)
[2018-12-27] MEDS ORDERED: DEXTROSE 5%-WATER 100 ML IVPB ONE ×3 (01:00→16:42)
[2018-12-27] MEDS ORDERED: CEFEPIME HCL 1 GM VIAL (RESTRICTED TO ID) ONE ×3 (01:00→16:42)
[2018-12-27] MEDS: CEFEPIME 1 GM in DEXTROSE 5%-WATER 100 ML IVPB SCH ×3 (01:19→17:09)
[2018-12-27] MEDS: INSULIN (LEVEMIR) 100 UNITS/ML UNITS SQ SCH (06:29)
[2018-12-27] MEDS: INSULIN SLIDING SCALE (NOVOLOG) 1 VIAL SQ SCH ×4 (06:29→21:32)
[2018-12-27] MEDS ORDERED: INSULIN (NOVOLOG) ASPART 100 UNITS/ML 10ML VIAL ONE (06:45)
[2018-12-27] MEDS: SODIUM CHLORIDE 1,000 ML IV SCH ×2 (06:49→11:45)
--- NOTE | 2018-12-27 08:14 | PN ---
Progress Note, Physician Chief Complaint: non-healing foot ulcers. POD#2 I&D or heel abcess History of Present Illness: The patient is a 58-year-old male, with a past medical history of CHF (EF 35-45% ), IDDM, gastroparesis, currently undergoing hyperbaric treatment for chronic foot wounds with Dr Beverly. Sent from his office for possible new R lateral heel redness and potential abscess. Patient states the right foot has been tender and draining since he left the hospital on 12/18/18. The patient denies fever, change in sensation of the foot, increased swelling but tstaes hes been having intermittent chills for 5 days. Denies n/v/d/c, chest pain, shortness of breath. Patient uses a scooter to ambulate. Dr Andrade following pt - Current Medication List Current Medications: Active Medications Acetaminophen (Tylenol -) 650 mg PO Q4H PRN PRN Reason: PAIN Last Admin: 12/25/18 23:18 Dose: 650 mg Aspirin (Asa -) 81 mg PO DAILY [facility] Last Admin: 12/26/18 09:34 Dose: 81 mg Atorvastatin Calcium (Lipitor -) 40 mg PO HS [facility] Last Admin: 12/26/18 21:24 Dose: 40 mg Carvedilol (Coreg -) 6.25 mg PO BID [facility] Last Admin: 12/26/18 21:24 Dose: 6.25 mg Clopidogrel Bisulfate (Plavix -) 75 mg PO DAILY [facility] Collagenase (Santyl -) 1 applic TP DAILY [facility]; Protocol Last Admin: 12/26/18 14:22 Dose: Not Given Heparin Sodium (Porcine) (Heparin -) 5,000 unit SQ BID [facility] Last Admin: 12/26/18 21:24 Dose: 5,000 unit Cefepime HCl 1 gm/ Dextrose 100 mls @ 200 mls/hr IVPB Q8H-IV [facility]; Protocol Last Admin: 12/27/18 01:19 Dose: 200 mls/hr Sodium Chloride (Normal Saline -) 1,000 mls @ 75 mls/hr IV ASDIR [facility] Last Admin: 12/27/18 06:49 Dose: 75 mls/hr Vancomycin HCl (Vancomycin (Pre-Docked)) 1,000 mg in 250 mls @ 166.667 mls/hr IVPB Q24H [facility]; Protocol Last Admin: 12/26/18 14:20 Dose: 166.667 mls/hr Insulin Aspart (Novolog Vial Sliding Scale -) 1 vial SQ ACHS [facility]; Protocol Last Admin: 12/27/18 06:29 Dose: Not Given Insulin Detemir (Levemir Vial) 10 units SQ AM [facility] Last Admin: 12/27/18 06:29 Dose: Not Given Lisinopril (Prinivil) 5 mg PO DAILY [facility] Last Admin: 12/26/18 09:34 Dose: 5 mg - Objective Vital Signs: Vital Signs Temperature 98.2 F 12/27/18 06:00 Pulse Rate 79 12/27/18 06:00 Respiratory Rate 20 12/27/18 06:00 Blood Pressure 105/62 12/27/18 06:00 O2 Sat by Pulse Oximetry (%) 99 12/26/18 21:00 Constitutional: Yes: Well Nourished, No Distress, Calm Eyes: Yes: WNL, Conjunctiva Clear, EOM Intact HENT: Yes: WNL, Atraumatic, Normocephalic Neck: Yes: WNL, Supple, Trachea Midline Cardiovascular: Yes: WNL, Regular Rate and Rhythm Respiratory: Yes: WNL, Regular, CTA Bilaterally Gastrointestinal: Yes: WNL, Normal Bowel Sounds, Soft ...Rectal Exam: Yes: WNL Genitourinary: Yes: WNL Breast(s): Yes: WNL Musculoskeletal: Yes: WNL Extremities: Yes: WNL, Amputation (right great toe) Edema: No Peripheral Pulses WNL: No Peripheral Pulses: Left Doralis Pedis: 1+, Right Dorsalis Pedis: 1+ Integumentary: Yes: Incision Wound/Incision: Yes: Draining, Other (Clean/Dry, Well Approximated, Sutures Intact, Dressing Dry and Intact (Right foot incision site on lateral heel with sutures intact, no purulence drainage noted, mild hematogenous drainage noted, no ascending streaking, no pain on palpation, plantar heel ulceration noted, no bone exposed with granulation tissue, 5th MPJ ulceration , no bone exposed no signs of infection)) Neurological: Yes: WNL, Alert, Oriented ...Motor Strength: WNL Psychiatric: Yes: WNL, Alert, Oriented Labs: CBC, BMP 12/26/18 08:00 12/26/18 08:00 INR, PTT INR 1.00 (0.83-1.09) 12/26/18 08:00 Problem List - Problems (1) History of hyperbaric oxygen therapy Assessment/Plan: treated by Dr Carter for chronic foot ulcers Code(s): Z92.89 - PERSONAL HISTORY OF OTHER MEDICAL TREATMENT (2) Prophylactic measure Assessment/Plan: FEN NPO for pending OR-I & D heel monitor electrolytes diabetic diet DVT c/w plavix/asa Dispo med surg bed full code discharge planning Code(s): Z29.9 - ENCOUNTER FOR PROPHYLACTIC MEASURES, UNSPECIFIED (3) Diabetic foot ulcer Assessment/Plan: treated by Dr Carter for chronic foot ulcers POD# 2 for right heel abscess incision and drainage c/w vanco/cefepime Code(s): E11.621 - TYPE 2 DIABETES MELLITUS WITH FOOT ULCER; L97.509 - NON- PRESSURE CHRONIC ULCER OTH PRT UNSP FOOT W UNSP SEVERITY Qualifiers: Diabetic foot ulcer location: heel Diabetes mellitus type: type 2 Laterality: right (4) Hyperlipidemia Assessment/Plan: low fat/cholesterol diet post surgery c\w home dose of atorvastin Code(s): E78.5 - HYPERLIPIDEMIA, UNSPECIFIED Qualifiers: Hyperlipidemia type: pure hypercholesterolemia Qualified Code(s): E78.00 - Pure hypercholesterolemia, unspecified; E78.0 - Pure hypercholesterolemia (5) PVD (peripheral vascular disease) Assessment/Plan: followed by Dr Santoyo for hyperbaric oxygen therapy wound care as per podiatry c/w ambulation with scooter to decrease pressure on open wounds Code(s): I73.9 - PERIPHERAL VASCULAR DISEASE, UNSPECIFIED (6) Non-ischemic cardiomyopathy Assessment/Plan: nonischemic dilated cardiomyopathy (initially LVEF 15% on initial diagnosis 2008 , most recent EF 35-45%) c/w Lipitor 40 qd, carvedilol 6.26 bid, lisinopril 5 qd plaxix and asa restarted Code(s): I42.8 - OTHER CARDIOMYOPATHIES Visit type - Emergency Visit Emergency Visit: Yes ED Registration Date: 12/23/18 Care time: The patient presented to the Emergency Department on the above date and was hospitalized for further evaluation of their emergent condition. - New Patient This patient is new to me today: No - Critical Care Critical Care patient: No - Discharge Referral Referred to [facility] Med P.C.: No
[2018-12-27] MEDS: CLOPIDOGREL BISULFATE 75 MG TABLET (FP) PO SCH (09:05)
[2018-12-27] MEDS: LISINOPRIL 5 MG TABLET (FP) PO SCH (09:05)
[2018-12-27] MEDS: ASPIRIN 81 MG CHEWABLE TABLETS PO SCH (09:05)
[2018-12-27] MEDS: CARVEDILOL 6.25 MG TABLET (FP) PO SCH ×2 (09:05→21:33)
[2018-12-27] MEDS: HEPARIN NA (PORCINE) 5,000 UNITS/ML 1ML VIAL SQ SCH ×2 (09:05→21:32)
[2018-12-27 10:21] LABS: BASO % 0.9 % (0-2.0); EOS % 7.1 % (0-4.5); HEMATOCRIT 29.7 % (35.4-49); HEMOGLOBIN 9.7 GM/dL (11.7-16.9); LYMPH % 11.2 % (8-40); MCH 26.5 pg (25.7-33.7); MCHC 32.6 g/dl (32.0-35.9); MEAN CELL VOLUME 81.3 fl (80-96); MONO % 10.2 % (3.8-10.2); NEUT % 70.6 % (42.8-82.8); PLATELET COUNT 172 K/MM3 (134-434); RBC 3.65 M/mm3 (4.00-5.60); RDW 16.1 % (11.9-15.9); WHITE BLOOD COUNT 4.9 K/mm3 (4.0-10.0)
[2018-12-27] MEDS: COLLAGENASE CLOSTRIDIUM HIST. 30 GRAMS TUBE TP SCH (10:25)
[2018-12-27 10:44] LABS: ALBUMIN 2.7 g/dl (3.4-5.0); BILIRUBIN,TOTAL 0.3 mg/dL (0.2-1); BLOOD UREA NITROGEN 11.2 mg/dL (7-18); CALCIUM 8.5 mg/dL (8.5-10.1); CREATININE 0.9 mg/dL (0.55-1.3); TOT PROT 6.3 g/dl (6.4-8.2)
--- NOTE | 2018-12-27 12:37 | PN ---
Progress Note, Physician Chief Complaint: Pt A&OX3; feels well, and says he has not pain in chest or lower extremities. History of Present Illness: The patient is a 58 year old male, with a past medical history of systolic CHF ( EFwas at one point 15%; now reportedly 35-45%), IDDM, gastroparesis, neuropathy , PAD and R great toe amputation (2008) who presents to the ED from the [facility] for admission for worsening R heel wound, swelling and redness. The patient is being treated at the [facility] for chronic foot wounds for the past 3 weeks and is now endorsing chills and difficulty walking ( ambulates with a scooter). 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 - Current Medication List Current Medications: Active Medications Acetaminophen (Tylenol -) 650 mg PO Q4H PRN PRN Reason: PAIN Last Admin: 12/25/18 23:18 Dose: 650 mg Aspirin (Asa -) 81 mg PO DAILY [facility] Last Admin: 12/27/18 09:05 Dose: 81 mg Atorvastatin Calcium (Lipitor -) 40 mg PO HS [facility] Last Admin: 12/26/18 21:24 Dose: 40 mg Carvedilol (Coreg -) 6.25 mg PO BID [facility] Last Admin: 12/27/18 09:05 Dose: 6.25 mg Clopidogrel Bisulfate (Plavix -) 75 mg PO DAILY [facility] Last Admin: 12/27/18 09:05 Dose: 75 mg Collagenase (Santyl -) 1 applic TP DAILY [facility]; Protocol Last Admin: 12/26/18 14:22 Dose: Not Given Heparin Sodium (Porcine) (Heparin -) 5,000 unit SQ BID [facility] Last Admin: 12/27/18 09:05 Dose: 5,000 unit Cefepime HCl 1 gm/ Dextrose 100 mls @ 200 mls/hr IVPB Q8H-IV [facility]; Protocol Last Admin: 12/27/18 09:05 Dose: 200 mls/hr Sodium Chloride (Normal Saline -) 1,000 mls @ 75 mls/hr IV ASDIR [facility] Last Admin: 12/27/18 06:49 Dose: 75 mls/hr Vancomycin HCl (Vancomycin (Pre-Docked)) 1,000 mg in 250 mls @ 166.667 mls/hr IVPB Q24H [facility]; Protocol Last Admin: 12/26/18 14:20 Dose: 166.667 mls/hr Insulin Aspart (Novolog Vial Sliding Scale -) 1 vial SQ ACHS [facility]; Protocol Last Admin: 12/27/18 06:29 Dose: Not Given Insulin Detemir (Levemir Vial) 10 units SQ AM [facility] Last Admin: 12/27/18 06:29 Dose: Not Given Lisinopril (Prinivil) 5 mg PO DAILY [facility] Last Admin: 12/27/18 09:05 Dose: 5 mg - Objective Vital Signs: Vital Signs Temperature 98.2 F 12/27/18 10:00 Pulse Rate 79 12/27/18 10:00 Respiratory Rate 18 12/27/18 10:00 Blood Pressure 131/74 12/27/18 10:00 O2 Sat by Pulse Oximetry (%) 99 12/27/18 09:00 Constitutional: Yes: No Distress Eyes: Yes: WNL HENT: Yes: WNL Neck: Yes: WNL Cardiovascular: Yes: S1, S2 Respiratory: Yes: WNL. No: Rales, SOB Gastrointestinal: Yes: Soft ...Rectal Exam: Yes: Deferred Genitourinary: No: Anuria Breast(s): Yes: WNL Musculoskeletal: Yes: Muscle Weakness Extremities: Yes: Cool Edema: No Peripheral Pulses WNL: No Peripheral Pulses: Left Doralis Pedis: 1+, Right Dorsalis Pedis: 1+ Integumentary: Yes: Pressure Ulcer, Other (both feet dressed, dry; right big toe amputated) Neurological: Yes: Alert, Oriented Labs: CBC, BMP 12/27/18 09:50 12/27/18 09:50 INR, PTT INR 1.00 (0.83-1.09) 12/26/18 08:00 Abnormal Lab Results 12/26/18 12/27/18 12/27/18 14:20 09:50 09:50 RBC 3.65 L Hgb 9.7 L Hct 29.7 L RDW 16.1 H Eosinophils % 7.1 H Anion Gap 5 L Random Glucose 163 H AST 14 L Total Protein 6.3 L Albumin 2.7 L Vancomycin Pre-Dose 4.7 L Problem List - Problems (1) Abscess of heel Assessment/Plan: s/p right heel incision and drainage Code(s): L02.619 - CUTANEOUS ABSCESS OF UNSPECIFIED FOOT (2) Diabetes Code(s): E11.9 - TYPE 2 DIABETES MELLITUS WITHOUT COMPLICATIONS (3) Foot ulcer Code(s): L97.509 - NON-PRESSURE CHRONIC ULCER OTH PRT UNSP FOOT W UNSP SEVERITY (4) History of hyperbaric oxygen therapy Code(s): Z92.89 - PERSONAL HISTORY OF OTHER MEDICAL TREATMENT (5) Non-ischemic cardiomyopathy Assessment/Plan: On lisinopril and carvedilol. On clopidogrel. Code(s): I42.8 - OTHER CARDIOMYOPATHIES (6) Diabetic foot ulcer Code(s): E11.621 - TYPE 2 DIABETES MELLITUS WITH FOOT ULCER; L97.509 - NON- PRESSURE CHRONIC ULCER OTH PRT UNSP FOOT W UNSP SEVERITY Qualifiers: Diabetic foot ulcer location: heel Diabetes mellitus type: type 2 Laterality: right (7) Hyperlipidemia Code(s): E78.5 - HYPERLIPIDEMIA, UNSPECIFIED Qualifiers: Hyperlipidemia type: pure hypercholesterolemia Qualified Code(s): E78.00 - Pure hypercholesterolemia, unspecified; E78.0 - Pure hypercholesterolemia (8) PVD (peripheral vascular disease) Code(s): I73.9 - PERIPHERAL VASCULAR DISEASE, UNSPECIFIED
[2018-12-27] MEDS: VANCOMYCIN 1 GRAM (PRE-DOCKED) 1,000 MG/250 ML BAG IVPB SCH (13:25)
[2018-12-27] MEDS: ATORVASTATIN CA 40 MG TABLET (FP) PO SCH (21:33)
[2018-12-28] MEDS ORDERED: DEXTROSE 5%-WATER 100 ML IVPB ONE ×3 (03:09→17:05)
[2018-12-28] MEDS ORDERED: CEFEPIME HCL 1 GM VIAL (RESTRICTED TO ID) ONE ×3 (03:09→17:05)
[2018-12-28] MEDS: CEFEPIME 1 GM in DEXTROSE 5%-WATER 100 ML IVPB SCH ×3 (03:12→17:12)
[2018-12-28] MEDS: INSULIN SLIDING SCALE (NOVOLOG) 1 VIAL SQ SCH ×4 (06:28→22:02)
[2018-12-28] MEDS: INSULIN (LEVEMIR) 100 UNITS/ML UNITS SQ SCH (06:29)
[2018-12-28] MEDS ORDERED: INSULIN (NOVOLOG) ASPART 100 UNITS/ML 10ML VIAL ONE (06:43)
[2018-12-28 08:35] LABS: ALBUMIN 2.7 g/dl (3.4-5.0); BILIRUBIN,TOTAL 0.3 mg/dL (0.2-1); BLOOD UREA NITROGEN 10.6 mg/dL (7-18); CALCIUM 8.6 mg/dL (8.5-10.1); MAGNESIUM 1.9 mg/dL (1.8-2.4); TOT PROT 6.2 g/dl (6.4-8.2)
[2018-12-28] MEDS: CLOPIDOGREL BISULFATE 75 MG TABLET (FP) PO SCH (09:53)
[2018-12-28] MEDS: ASPIRIN 81 MG CHEWABLE TABLETS PO SCH (09:53)
[2018-12-28] MEDS: CARVEDILOL 6.25 MG TABLET (FP) PO SCH ×2 (09:53→22:01)
[2018-12-28] MEDS: LISINOPRIL 5 MG TABLET (FP) PO SCH (09:53)
[2018-12-28] MEDS: HEPARIN NA (PORCINE) 5,000 UNITS/ML 1ML VIAL SQ SCH ×2 (09:53→22:01)
--- NOTE | 2018-12-28 10:22 | PN ---
Progress Note (short form) - Note Progress Note: Podiatry F/U; Seen/evaluated at bedside NAD. Pain controlled and improved, denies F/V/N/C/SOB/ CP. Afebrile. S/p incision and drainge of right heel abscess POD#3. JADE: R foot: pedal pulses nonpalpable, TG wnl. Sutures well coapted lateral heel, no dehiscence noted, improvement in erythema, no purulent drainage, no fluctuance, no ischemic changes, no streaking cellulitis, no signs of infection. Minimal tenderness to palpation. Stable sub-fifth metatarsal diabetic ulcer and plantar heel diabetic ulcer with granular bases and minimal slough. WBC: 4.9 OR Cx: no growth Imp: 58 year old diabetic male s/p incision and drainage of right heel abscess 1. DSD R foot 2. Minimal weightbearing right foot 3. Continue heel protectors 4. ID input appreciated. Will be discharged on PO bactrim 5. Podiatry stable for discharge. Patient will f/u with me in wound healing center 12/30/18. Filipe Santoyo DPM
[2018-12-28 11:18] LABS: BASO % 0.9 % (0-2.0); EOS % 6.4 % (0-4.5); HEMOGLOBIN 9.9 GM/dL (11.7-16.9); LYMPH % 10.9 % (8-40); MCH 26.8 pg (25.7-33.7); MCHC 33.1 g/dl (32.0-35.9); MEAN PLT VOLUME 9.5 fl (7.5-11.1); MONO % 9.8 % (3.8-10.2); PLATELET COUNT 183 K/MM3 (134-434); RDW 15.9 % (11.9-15.9); WHITE BLOOD COUNT 4.5 K/mm3 (4.0-10.0)
[2018-12-28 11:22] LABS: ALBUMIN 2.7 g/dl (3.4-5.0); BILIRUBIN,TOTAL 0.3 mg/dL (0.2-1); BLOOD UREA NITROGEN 9.3 mg/dL (7-18); CALCIUM 8.7 mg/dL (8.5-10.1); CREATININE 0.9 mg/dL (0.55-1.3); MAGNESIUM 1.8 mg/dL (1.8-2.4); POTASSIUM 4.2 mmol/L (3.5-5.1); TOT PROT 6.3 g/dl (6.4-8.2)
[2018-12-28] MEDS: SODIUM CHLORIDE 1,000 ML IV SCH (11:50)
[2018-12-28] MEDS: COLLAGENASE CLOSTRIDIUM HIST. 30 GRAMS TUBE TP SCH (12:08)
--- NOTE | 2018-12-28 12:09 | PN ---
Physical Exam: SUBJECTIVE: Patient seen and examined non-healing foot ulcers. POD#2 I&D or heel abcess [place]. The patient is a 58-year-old male, with a past medical history of CHF (EF 35-45% ), IDDM, gastroparesis, currently undergoing hyperbaric treatment for chronic foot wounds with Dr Beverly. Sent from his office for possible new R lateral heel redness and potential abscess. Patient states the right foot has been tender and draining since he left the hospital on 12/18/18. The patient denies fever, change in sensation of the foot, increased swelling but tstaes hes been having intermittent chills for 5 days. Denies n/v/d/c, chest pain, shortness of breath. Patient uses a scooter to ambulate. Dr Andrade on the case. OBJECTIVE: Vital Signs Period Temp Pulse Resp BP Sys/Dominguez Pulse Ox Last 24 Hr 97.6 F-98.3 F 71-79 18-20 122-154/68-79 95-97 GENERAL: The patient is awake, alert, and fully oriented, in no acute distress. HEAD: Normal with no signs of trauma. EYES: PERRL, extraocular movements intact, sclera anicteric, conjunctiva clear. No ptosis. ENT: Ears normal, nares patent, oropharynx clear without exudates, moist mucous membranes. NECK: Trachea midline, full range of motion, supple. LUNGS: Breath sounds equal, clear to auscultation bilaterally, no wheezes, no crackles, no accessory muscle use. HEART: Regular rate and rhythm, S1, S2 without murmur, rub or gallop. ABDOMEN: Soft, nontender, nondistended, normoactive bowel sounds, no guarding, no rebound, no hepatosplenomegaly, no masses. EXTREMITIES: Draining, Other (Clean/Dry, Well Approximated, Sutures Intact, Dressing Dry and Intact (Right foot incision site on lateral heel with sutures intact, no purulence drainage noted, mild hematogenous drainage noted, no ascending streaking, no pain on palpation, plantar heel ulceration noted, no bone exposed with granulation tissue, 5th MPJ ulceration , no bone exposed no signs of infection)) NEUROLOGICAL: Cranial nerves II through XII grossly intact. Normal speech, gait not observed. Laboratory Results - last 24 hr 12/27/18 12/27/18 12/28/18 16:48 21:30 06:10 WBC Corrected WBC (auto) RBC Hgb Hct MCV MCH MCHC RDW Plt Count MPV Absolute Neuts (auto) Neutrophils % Lymphocytes % Monocytes % Eosinophils % Basophils % Nucleated RBC % Platelet Estimate Platelet Comment Sodium Potassium Chloride Carbon Dioxide Anion Gap BUN Creatinine Est GFR (CKD-EPI)AfAm Est GFR (CKD-EPI)NonAf POC Glucometer 151 150 137 Random Glucose Calcium Magnesium Total Bilirubin AST ALT Alkaline Phosphatase Total Protein Albumin 12/28/18 12/28/18 12/28/18 07:00 07:00 10:32 WBC Cancelled 4.5 Corrected WBC (auto) Cancelled RBC Cancelled 3.70 L Hgb Cancelled 9.9 L Hct Cancelled 30.0 L MCV Cancelled 81.0 MCH Cancelled 26.8 MCHC Cancelled 33.1 RDW Cancelled 15.9 Plt Count Cancelled 183 MPV Cancelled 9.5 Absolute Neuts (auto) Cancelled 3.2 Neutrophils % Cancelled 72.0 Lymphocytes % Cancelled 10.9 Monocytes % Cancelled 9.8 Eosinophils % Cancelled 6.4 H Basophils % Cancelled 0.9 Nucleated RBC % Cancelled 0 Platelet Estimate Cancelled Platelet Comment Cancelled Sodium 145 Potassium 5.0 Chloride 110 H Carbon Dioxide 28 Anion Gap 7 L BUN 10.6 Creatinine 1.0 Est GFR (CKD-EPI)AfAm 95.73 Est GFR (CKD-EPI)NonAf 82.60 POC Glucometer Random Glucose 130 H Calcium 8.6 Magnesium 1.9 Total Bilirubin 0.3 AST 19 ALT 16 Alkaline Phosphatase 51 Total Protein 6.2 L Albumin 2.7 L 12/28/18 12/28/18 10:32 11:46 WBC Corrected WBC (auto) RBC Hgb Hct MCV MCH MCHC RDW Plt Count MPV Absolute Neuts (auto) Neutrophils % Lymphocytes % Monocytes % Eosinophils % Basophils % Nucleated RBC % Platelet Estimate Platelet Comment Sodium 143 Potassium 4.2 Chloride 108 H Carbon Dioxide 29 Anion Gap 6 L BUN 9.3 Creatinine 0.9 Est GFR (CKD-EPI)AfAm 108.73 Est GFR (CKD-EPI)NonAf 93.82 POC Glucometer 136 Random Glucose 157 H Calcium 8.7 Magnesium 1.8 Total Bilirubin 0.3 AST 15 ALT 16 Alkaline Phosphatase 52 Total Protein 6.3 L Albumin 2.7 L Active Medications Generic Name Dose Route Start Last Admin Trade Name Freq PRN Reason Stop Dose Admin Acetaminophen 650 mg 12/25/18 23:08 12/25/18 23:18 Tylenol - PO 650 mg Q4H PRN Administration PAIN Aspirin 81 mg 12/26/18 10:00 12/28/18 09:53 Asa - PO 81 mg DAILY [facility] Administration Atorvastatin Calcium 40 mg 12/25/18 22:00 12/27/18 21:33 Lipitor - PO 40 mg HS [facility] Administration Carvedilol 6.25 mg 12/25/18 22:00 12/28/18 09:53 Coreg - PO 6.25 mg BID [facility] Administration Clopidogrel Bisulfate 75 mg 12/27/18 10:00 12/28/18 09:53 Plavix - PO 75 mg DAILY [facility] Administration Collagenase 1 applic 12/26/18 10:00 12/27/18 10:25 Santyl - TP 1 appful DAILY [facility] Administration Protocol Heparin Sodium (Porcine) 5,000 unit 12/25/18 22:00 12/28/18 09:53 Heparin - SQ 5,000 unit BID [facility] Administration Cefepime HCl 1 gm/ Dextrose 100 mls @ 200 mls/hr 12/25/18 18:00 12/28/18 09: 52 IVPB 200 mls/hr Q8H-IV [facility] Administration Protocol Sodium Chloride 1,000 mls @ 75 mls/hr 12/25/18 11:33 12/27/18 11:45 Normal Saline - IV 75 mls/hr ASDIR [facility] Administration Vancomycin HCl 1,000 mg in 250 mls @ 166.667 mls/hr 12/25/18 14:00 12/27/18 13:25 Vancomycin (Pre-Docked) IVPB 166.667 mls/hr Q24H [facility] Administration Protocol Insulin Aspart 1 vial 12/25/18 16:30 12/28/18 06:28 Novolog Vial Sliding Scale - SQ Not Given [facility] Protocol Insulin Detemir 10 units 12/26/18 07:00 12/28/18 06:29 Levemir Vial SQ 10 units AM [facility] Administration Lisinopril 5 mg 12/26/18 10:00 12/28/18 09:53 Prinivil PO 5 mg DAILY [facility] Administration ASSESSMENT/PLAN: 1 diabetic foot ulcer pod #3 and on vanco and cefepime dressing in place 2 pvd continue management 3 cardiomyopathy continue lipitor , carvedrolol, lisinipril 4 high lipids atorvastatin to continue Visit type - Emergency Visit Emergency Visit: Yes ED Registration Date: 12/23/18 Care time: The patient presented to the Emergency Department on the above date and was hospitalized for further evaluation of their emergent condition. - New Patient This patient is new to me today: Yes Date on this admission: 12/28/18 - Critical Care Critical Care patient: No - Discharge Referral Referred to [facility] Med P.C.: No
[2018-12-28] MEDS: VANCOMYCIN 1 GRAM (PRE-DOCKED) 1,000 MG/250 ML BAG IVPB SCH (14:08)
[2018-12-28] MEDS: ATORVASTATIN CA 40 MG TABLET (FP) PO SCH (22:01)
[2018-12-29] MEDS: CEFEPIME 1 GM in DEXTROSE 5%-WATER 100 ML IVPB SCH ×3 (03:33→10:38)
[2018-12-29 04:51] VITALS: TEMP 98.1
[2018-12-29] MEDS: INSULIN (LEVEMIR) 100 UNITS/ML UNITS SQ SCH (06:21)
[2018-12-29] MEDS: INSULIN SLIDING SCALE (NOVOLOG) 1 VIAL SQ SCH ×2 (06:21→11:12)
--- NOTE | 2018-12-29 07:50 | DS ---
Physical Exam: SUBJECTIVE: Patient seen and examined Chief Complaint: non-healing foot ulcers. POD#2 I&D or heel abcess History of Present Illness: The patient is a 58-year-old male, with a past medical history of CHF (EF 35-45% ), IDDM, gastroparesis, currently undergoing hyperbaric treatment for chronic foot wounds with Dr Beverly. Sent from his office for possible new R lateral heel redness and potential abscess. Patient states the right foot has been tender and draining since he left the hospital on 12/18/18. The patient denies fever, change in sensation of the foot, increased swelling but tstaes hes been having intermittent chills for 5 days. Denies n/v/d/c, chest pain, shortness of breath. Patient uses a scooter to ambulate. Dr Andrade following pt OBJECTIVE: Vital Signs Period Temp Pulse Resp BP Sys/Dominguez Pulse Ox Last 24 Hr 97.6 F-98.2 F 71-81 16-20 127-157/64-88 96-97 PHYSICAL EXAM Constitutional: Yes: Well Nourished, No Distress, Calm Eyes: Yes: WNL, Conjunctiva Clear, EOM Intact HENT: Yes: WNL, Atraumatic, Normocephalic Neck: Yes: WNL, Supple, Trachea Midline Cardiovascular: Yes: WNL, Regular Rate and Rhythm Respiratory: Yes: WNL, Regular, CTA Bilaterally Gastrointestinal: Yes: WNL, Normal Bowel Sounds, Soft ...Rectal Exam: Yes: WNL Genitourinary: Yes: WNL Breast(s): Yes: WNL Musculoskeletal: Yes: WNL Extremities: Yes: WNL, Amputation (right great toe) Edema: No Peripheral Pulses WNL: No Peripheral Pulses: Left Doralis Pedis: 1+, Right Dorsalis Pedis: 1+ Integumentary: Yes: Incision Wound/Incision: Yes: Draining, Other (Clean/Dry, Well Approximated, Sutures Intact, Dressing Dry and Intact (Right foot incision site on lateral heel with sutures intact, no purulence drainage noted, mild hematogenous drainage noted, no ascending streaking, no pain on palpation, plantar heel ulceration noted, no bone exposed with granulation tissue, 5th MPJ ulceration , no bone exposed no signs of infection)) Neurological: Yes: WNL, Alert, Oriented ...Motor Strength: WNL Psychiatric: Yes: WNL, Alert, Oriented LABS Laboratory Results - last 24 hr 12/28/18 12/28/18 12/28/18 07:00 07:00 10:32 WBC Cancelled 4.5 Corrected WBC (auto) Cancelled RBC Cancelled 3.70 L Hgb Cancelled 9.9 L Hct Cancelled 30.0 L MCV Cancelled 81.0 MCH Cancelled 26.8 MCHC Cancelled 33.1 RDW Cancelled 15.9 Plt Count Cancelled 183 MPV Cancelled 9.5 Absolute Neuts (auto) Cancelled 3.2 Neutrophils % Cancelled 72.0 Lymphocytes % Cancelled 10.9 Monocytes % Cancelled 9.8 Eosinophils % Cancelled 6.4 H Basophils % Cancelled 0.9 Nucleated RBC % Cancelled 0 Platelet Estimate Cancelled Platelet Comment Cancelled Sodium 145 Potassium 5.0 Chloride 110 H Carbon Dioxide 28 Anion Gap 7 L BUN 10.6 Creatinine 1.0 Est GFR (CKD-EPI)AfAm 95.73 Est GFR (CKD-EPI)NonAf 82.60 POC Glucometer Random Glucose 130 H Calcium 8.6 Magnesium 1.9 Total Bilirubin 0.3 AST 19 ALT 16 Alkaline Phosphatase 51 Total Protein 6.2 L Albumin 2.7 L 12/28/18 12/28/18 12/28/18 10:32 11:46 16:29 WBC Corrected WBC (auto) RBC Hgb Hct MCV MCH MCHC RDW Plt Count MPV Absolute Neuts (auto) Neutrophils % Lymphocytes % Monocytes % Eosinophils % Basophils % Nucleated RBC % Platelet Estimate Platelet Comment Sodium 143 Potassium 4.2 Chloride 108 H Carbon Dioxide 29 Anion Gap 6 L BUN 9.3 Creatinine 0.9 Est GFR (CKD-EPI)AfAm 108.73 Est GFR (CKD-EPI)NonAf 93.82 POC Glucometer 136 236 Random Glucose 157 H Calcium 8.7 Magnesium 1.8 Total Bilirubin 0.3 AST 15 ALT 16 Alkaline Phosphatase 52 Total Protein 6.3 L Albumin 2.7 L 12/28/18 12/29/18 20:48 05:27 WBC Corrected WBC (auto) RBC Hgb Hct MCV MCH MCHC RDW Plt Count MPV Absolute Neuts (auto) Neutrophils % Lymphocytes % Monocytes % Eosinophils % Basophils % Nucleated RBC % Platelet Estimate Platelet Comment Sodium Potassium Chloride Carbon Dioxide Anion Gap BUN Creatinine Est GFR (CKD-EPI)AfAm Est GFR (CKD-EPI)NonAf POC Glucometer 135 128 Random Glucose Calcium Magnesium Total Bilirubin AST ALT Alkaline Phosphatase Total Protein Albumin HOSPITAL COURSE: Date of Admission:12/23/18 Date of Discharge: 12/29/18 -(1) History of hyperbaric oxygen therapy Assessment/Plan: treated by Dr Carter for chronic foot ulcers Will continue to follow in wound clinic-appt on 12/30 (2) Prophylactic measure Assessment/Plan: DVT Plavix/ASA held prior to surgery. Restarted once hemestasis obtained. Will continue on discharge Dispo Discharge back to home (3) Diabetic foot ulcer Assessment/Plan: treated by Dr Carter for chronic foot ulcers Traeted with Vanco/cefepime . Stopped on 12/29 and then started on Bactrim x 2 weeks 94) Hyperlipidemia Assessment/Plan: low fat/cholesterol diet post surgery c\w home dose of atorvastin (5) PVD (peripheral vascular disease) Assessment/Plan: followed by Dr Santoyo for hyperbaric oxygen therapy wound care as per podiatry c/w ambulation with scooter to decrease pressure on open wounds (6) Non-ischemic cardiomyopathy Assessment/Plan: nonischemic dilated cardiomyopathy (initially LVEF 15% on initial diagnosis 2008 , most recent EF 35-45%) c/w Lipitor 40 qd, carvedilol 6.26 bid, lisinopril 5 qd plaxix and asa restarted Minutes to complete discharge: 30 Discharge Summary Reason For Visit: ULCER OF FOOT Current Active Problems Abscess of heel (Acute) Diabetes (Acute) Foot ulcer (Acute) History of hyperbaric oxygen therapy (Acute) Non-ischemic cardiomyopathy (Acute) Pre-operative cardiovascular examination (Acute) Prophylactic measure (Acute) Hospital Course: HOSPITAL COURSE: Date of Admission:12/23/18 Date of Discharge: 12/29/18 -(1) History of hyperbaric oxygen therapy Assessment/Plan: treated by Dr Carter for chronic foot ulcers Will continue to follow in wound clinic-appt on 12/30 (2) Prophylactic measure Assessment/Plan: DVT Plavix/ASA held prior to surgery. Restarted once hemestasis obtained. Will continue on discharge Dispo Discharge back to home (3) Diabetic foot ulcer Assessment/Plan: treated by Dr Carter for chronic foot ulcers Traeted with Vanco/cefepime . Stopped on 12/29 and then started on Bactrim x 2 weeks 94) Hyperlipidemia Assessment/Plan: low fat/cholesterol diet post surgery c\w home dose of atorvastin (5) PVD (peripheral vascular disease) Assessment/Plan: followed by Dr Santoyo for hyperbaric oxygen therapy wound care as per podiatry c/w ambulation with scooter to decrease pressure on open wounds (6) Non-ischemic cardiomyopathy Assessment/Plan: nonischemic dilated cardiomyopathy (initially LVEF 15% on initial diagnosis 2008 , most recent EF 35-45%) c/w Lipitor 40 qd, carvedilol 6.26 bid, lisinopril 5 qd plaxix and asa restarted Condition: Improved - Instructions Diet, Activity, Other Instructions: You may resume your diabeteic, low fat diet when you get home. All medications are the same with the additions of Bactrim (antibiotic) twice daily for 2 weeks. An appointment is scheduled for you to see Dr Rebollar tomorrow 12/30 in the would clinic. The sutures and dressing will be evaluated by him tomorrow. Keep the foot dry and wrapped and ambulate with you scooter until told otherwise. If you have fevers , chills, increase in pain call Dr Carter or go the the Emergency Room. You can called Dr Horton's office to make a follow up appointment to see him for your cardiac needs. Referrals: Austin Santoyo MD [Staff Physician] - Armen Horton MD [Staff Physician] - 12/30/18 (appt in wound center) - Home Medications Comprehensive Discharge Medication List: Ambulatory Orders Aspirin [ASA -] 81 mg PO DAILY 12/23/18 Atorvastatin Ca [Lipitor] 40 mg PO HS 12/23/18 Carvedilol [Coreg] 6.25 mg PO DAILY 12/23/18 Clopidogrel Bisulfate [Clopidogrel] 75 mg PO DAILY 12/23/18 Insulin (Levemir) [Levemir Vial] 10 units SQ DAILY 12/23/18 Lisinopril 5 mg PO DAILY 12/23/18 Problem List - Problems (1) History of hyperbaric oxygen therapy Code(s): Z92.89 - PERSONAL HISTORY OF OTHER MEDICAL TREATMENT (2) Prophylactic measure Code(s): Z29.9 - ENCOUNTER FOR PROPHYLACTIC MEASURES, UNSPECIFIED (3) Diabetic foot ulcer Code(s): E11.621 - TYPE 2 DIABETES MELLITUS WITH FOOT ULCER; L97.509 - NON- PRESSURE CHRONIC ULCER OTH PRT UNSP FOOT W UNSP SEVERITY Qualifiers: Diabetic foot ulcer location: heel Diabetes mellitus type: type 2 Laterality: right (4) Hyperlipidemia Code(s): E78.5 - HYPERLIPIDEMIA, UNSPECIFIED Qualifiers: Hyperlipidemia type: pure hypercholesterolemia Qualified Code(s): E78.00 - Pure hypercholesterolemia, unspecified; E78.0 - Pure hypercholesterolemia (5) PVD (peripheral vascular disease) Code(s): I73.9 - PERIPHERAL VASCULAR DISEASE, UNSPECIFIED (6) Non-ischemic cardiomyopathy Code(s): I42.8 - OTHER CARDIOMYOPATHIES This patient is new to me today: No Emergency Visit: Yes ED Registration Date: 12/23/18 Care time: The patient presented to the Emergency Department on the above date and was hospitalized for further evaluation of their emergent condition. Critical Care patient: No - Discharge Referral Referred to [facility] Med P.C.: No
[2018-12-29] MEDS ORDERED: DEXTROSE 5%-WATER 100 ML IVPB ONE (09:49)
[2018-12-29] MEDS ORDERED: CEFEPIME HCL 1 GM VIAL (RESTRICTED TO ID) ONE (09:49)
[2018-12-29] MEDS: CLOPIDOGREL BISULFATE 75 MG TABLET (FP) PO SCH (09:50)
[2018-12-29] MEDS: HEPARIN NA (PORCINE) 5,000 UNITS/ML 1ML VIAL SQ SCH (09:50)
[2018-12-29] MEDS: ASPIRIN 81 MG CHEWABLE TABLETS PO SCH (09:50)
[2018-12-29] MEDS: LISINOPRIL 5 MG TABLET (FP) PO SCH (09:51)
[2018-12-29] MEDS: CARVEDILOL 6.25 MG TABLET (FP) PO SCH (09:51)
[2018-12-29] MEDS: COLLAGENASE CLOSTRIDIUM HIST. 30 GRAMS TUBE TP SCH (09:55)
[2018-12-29] MEDS ORDERED: SULFAMETHOXAZOLE/TRIMETHOPRIM 800MG/160MG D.S. TABLET PO SCH (10:15)
--- NOTE | 2018-12-29 10:19 | PN ---
Progress Note, Physician History of Present Illness: POD#4 for right heel abscess incision and drainage, post-op pain managed. Denies chest pain and dyspnea. - Current Medication List Current Medications: Active Medications Acetaminophen (Tylenol -) 650 mg PO Q4H PRN PRN Reason: PAIN Last Admin: 12/25/18 23:18 Dose: 650 mg Aspirin (Asa -) 81 mg PO DAILY [facility] Last Admin: 12/29/18 09:50 Dose: 81 mg Atorvastatin Calcium (Lipitor -) 40 mg PO HS [facility] Last Admin: 12/28/18 22:01 Dose: 40 mg Carvedilol (Coreg -) 6.25 mg PO BID [facility] Last Admin: 12/29/18 09:51 Dose: 6.25 mg Clopidogrel Bisulfate (Plavix -) 75 mg PO DAILY [facility] Last Admin: 12/29/18 09:50 Dose: 75 mg Collagenase (Santyl -) 1 applic TP DAILY [facility]; Protocol Last Admin: 12/29/18 09:55 Dose: 1 appful Heparin Sodium (Porcine) (Heparin -) 5,000 unit SQ BID [facility] Last Admin: 12/29/18 09:50 Dose: 5,000 unit Sodium Chloride (Normal Saline -) 1,000 mls @ 75 mls/hr IV ASDIR [facility] Last Admin: 12/28/18 11:50 Dose: 75 mls/hr Insulin Aspart (Novolog Vial Sliding Scale -) 1 vial SQ ACHS [facility]; Protocol Last Admin: 12/29/18 06:21 Dose: Not Given Insulin Detemir (Levemir Vial) 10 units SQ AM [facility] Last Admin: 12/29/18 06:21 Dose: 10 units Lisinopril (Prinivil) 5 mg PO DAILY [facility] Last Admin: 12/29/18 09:51 Dose: 5 mg Trimethoprim/Sulfamethoxazole (Bactrim Ds -) 1 each PO BID [facility] Stop: 01/12/19 10:14 - Objective Vital Signs: Vital Signs Temperature 98.1 F 12/29/18 05:55 Pulse Rate 80 12/29/18 05:55 Respiratory Rate 18 12/29/18 05:55 Blood Pressure 127/64 12/29/18 05:55 O2 Sat by Pulse Oximetry (%) 96 12/28/18 21:00 Constitutional: Yes: No Distress, Calm, Thin Neck: Yes: Supple Cardiovascular: Yes: Regular Rate and Rhythm Respiratory: Yes: Regular, CTA Bilaterally Gastrointestinal: Yes: Normal Bowel Sounds, Soft Edema: No Wound/Incision: Yes: Dressing Dry and Intact Labs: CBC, BMP 12/28/18 10:32 12/28/18 10:32 INR, PTT INR 1.00 (0.83-1.09) 12/26/18 08:00 Problem List - Problems (1) Diabetic foot ulcer Code(s): E11.621 - TYPE 2 DIABETES MELLITUS WITH FOOT ULCER; L97.509 - NON- PRESSURE CHRONIC ULCER OTH PRT UNSP FOOT W UNSP SEVERITY Qualifiers: Diabetic foot ulcer location: heel Diabetes mellitus type: type 2 Laterality: right (2) Hypertensive cardiomyopathy Code(s): I11.9 - HYPERTENSIVE HEART DISEASE WITHOUT HEART FAILURE; I43 - CARDIOMYOPATHY IN DISEASES CLASSIFIED ELSEWHERE Qualifiers: Heart failure presence: without heart failure Qualified Code(s): I11.9 - Hypertensive heart disease without heart failure; I43 - Cardiomyopathy in diseases classified elsewhere (3) Nonischemic dilated cardiomyopathy Code(s): I42.0 - DILATED CARDIOMYOPATHY (4) PVD (peripheral vascular disease) Code(s): I73.9 - PERIPHERAL VASCULAR DISEASE, UNSPECIFIED Assessment/Plan 2009 Nonobstructive CAD 08/2017 Lexiscan MPI: No perfusion defects, mild-mod HK LVEF 39% 07/10/2018 Echo: Normal LV size with borderline LVH, grade I diastolic dysfxn, normal RV size and fxn, normal atrial sizes, tr TR, AR 1. POD# 4 for right heel abscess incision and drainage 2. PAD with chronic non-healing heel ulcers, right big toe amputation and left heel cellulitis/abscess 3. Nonischemic dilated cardiomyopathy LVEF 35-45% on most recent echo 4. Insulin-dependent type 2 DM c/b peripheral neuropathy and gastroparesis 5. HTN 6. Hyperlipidemia 7. PCN Allergy P:1. Continue Bactrim course per C&S, wound care, HBO2 2. Continue ASA 81 qd and Plavix 75 qd as post-op hemostasis achieved, continue Lipitor 40 qd, carvedilol 6.26 bid, lisinopril 5 qd 3. Reviewed records from [facility] 4. Patient prefers transfer cardiology f/u to local office, he may see us in office upon d/c
[2018-12-29 12:10] VITALS: BP 129/75; PULSE 74
== END 2018-12-29 14:59 | disposition home or self-care (01) | DRG 603 ==
LOC: JER 10:36 → JERBED 16:11 → J6S 17:07
PROVIDERS: ATTEND Nurse Practitioner Acute Care
PROC: 0Y9M0ZX Drainage of Right Foot, Open Approach, Diagnostic (ICD-10-PCS; principal; 2018-12-25 10:30)
DX: L02.415 Cutaneous abscess of right lower limb (principal); L02.611 Cutaneous abscess of right foot; L97.418 Non-pressure chronic ulcer of right heel and midfoot with other specified severity; L97.528 Non-pressure chronic ulcer of other part of left foot with other specified severity; I42.8 Other cardiomyopathies; I43 Cardiomyopathy in diseases classified elsewhere; L03.116 Cellulitis of left lower limb; I11.0 Hypertensive heart disease with heart failure; I50.89 Other heart failure; E11.621 Type 2 diabetes mellitus with foot ulcer; E11.43 Type 2 diabetes mellitus with diabetic autonomic (poly)neuropathy; K31.84 Gastroparesis; E78.5 Hyperlipidemia, unspecified; E11.51 Type 2 diabetes mellitus with diabetic peripheral angiopathy without gangrene; E11.42 Type 2 diabetes mellitus with diabetic polyneuropathy; Z79.4 Long term (current) use of insulin; Z89.421 Acquired absence of other right toe(s); Z92.89 Personal history of other medical treatment; Z88.0 Allergy status to penicillin
CPT/HCPCS: 11042; 11045; 36415; 73610-TC-LT-FY; 73610-TC-RT-FY; 73630-TC-LT; 73630-TC-RT-FY; 73720-TC; 80053; 82962; 83735; 85025; 85610; 87040; 87070; 87205; 94760; 97116-GP; 97162-GP; 99284-25; A9579; G0277; G0480; J1644; J7030

== ENCOUNTER 2019-02-17 11:45 | Inpatient (IN) | payer OTHER ==
--- NOTE | 2019-02-17 14:02 | PDOC ---
History of Present Illness - General Chief Complaint: Wound Stated Complaint: SENT BY PCP/SURGERY Time Seen by Provider: 02/17/19 13:37 History Source: Patient Exam Limitations: Clinical Condition - History of Present Illness Initial Comments: 02/17/19 13:56 Patient with history of diabetes, CHF, hypertension and venous insufficiency sent in by podiatry Dr. fernandez for admission for amputation of left fifth toe due to osteomyelitis. Patient reported feeling chills for the past few days. Patient was seen by podiatry today who sent him in for admission for surgery tomorrow for amputation. Referral given by podiatry request ID and vascular consult. Patient denies fever, body aches, weakness. Timing/Duration: reports: week Past History - Past Medical History Allergies/Adverse Reactions: Allergies Allergy/AdvReac Type Severity Reaction Status Date / Time Penicillins Allergy Verified 12/23/18 10:42 Home Medications: Ambulatory Orders Aspirin [ASA -] 81 mg PO DAILY 12/23/18 Carvedilol [Coreg] 6.25 mg PO DAILY 12/23/18 Clopidogrel Bisulfate [Clopidogrel] 75 mg PO DAILY 12/23/18 Acetaminophen [Tylenol .Regular Strength -] 650 mg PO Q4H PRN tablet 12/29/18 Atorvastatin Ca [Lipitor] 40 mg PO HS tablet 12/29/18 Insulin (Levemir) [Levemir Vial] 10 units SQ AM units 12/29/18 Lisinopril [Prinivil] 5 mg PO DAILY tablet 12/29/18 Anemia: No Asthma: No Cardiac Disorders: Yes COPD: No CHF: Yes Diabetes: Yes GI Disorders: Yes HTN: Yes Hypercholesterolemia: Yes - Surgical History Abdominal Surgery: Yes (hernia repair 2009) Cardiac Surgery: Yes (Cardiac Cath 2008) - Immunization History Immunization Up to Date: No - Psycho Social/Smoking Cessation Hx Smoking History: Never smoked Have you smoked in the past 12 months: No If you are a former smoker, when did you quit?: 20 YEARS AGO Information on smoking cessation initiated: No Hx Alcohol Use: No Drug/Substance Use Hx: No Substance Use Type: None Review of Systems - Review of Systems Able to Perform ROS?: Yes Is the patient limited Cuban proficient: No Constitutional: Yes: Chills. No: Fever HEENTM: No: Symptoms Reported Respiratory: No: Symptoms reported Cardiac (ROS): No: Symptoms Reported ABD/GI: No: Nausea, Vomiting Musculoskeletal: Yes: Symptoms Reported, See HPI, Muscle Pain (left 5th toe and foot wound with pain) Integumentary: Yes: Symptoms Reported, See HPI, Other (ulcer of left little toe and foot) Neurological: Yes: Symptoms reported, Numbness. No: Tingling, Unsteady Gait All Other Systems: Reviewed and Negative *Physical Exam - Vital Signs Last Vital Signs Temp Pulse Resp BP Pulse Ox 98.2 F 107 H 16 114/82 99 02/17/19 11:56 02/17/19 11:56 02/17/19 11:56 02/17/19 11:56 02/17/19 11:56 - Physical Exam Comments: 02/17/19 14:01 GENERAL: Well developed, well nourished. Awake and alert. No acute distress. NECK: Supple. Full ROM. CARDIOVASCULAR: Regular rate and rhythm. No murmurs, rubs, or gallops. PULMONARY: No evidence of respiratory distress. Lungs clear to auscultation bilaterally. No wheezing, rales or rhonchi. MUSCULOSKELETAL Normal range of motion at all joints. SKIN: Warm and dry. Normal capillary refill. 2 cm x 2 cm deep ulcer over MCP of lateral aspect of left fifth toe with area of superficial wound to the plantar aspect of left foot with yellow purulent discharge. NEUROLOGICAL: Alert, awake, appropriate. Gait is normal without ataxia. PSYCHIATRIC: Cooperative. Good eye contact. Appropriate mood General Appearance: Yes: Nourished, Appropriately Dressed. No: Apparent Distress ED Treatment Course - LABORATORY CBC & Chemistry Diagram: 02/17/19 14:21 02/17/19 14:21 Medical Decision Making - Medical Decision Making 02/17/19 13:58 Patient with history of diabetes, CHF, hypertension and venous insufficiency sent in by podiatry Dr. fernandez for admission for amputation of left fifth toe due to osteomyelitis. Patient reported feeling chills for the past few days. Patient was seen by podiatry today who sent him in for admission for surgery tomorrow for amputation. Referral given by podiatry request ID and vascular consult. Patient denies fever, body aches, weaknesss. Exam significant for 2 cm deep open wound to lateral aspect of left fifth toe of MCP and plantar aspect of the lateral side of left foot with yellow purulent discharge from wound. Patient afebrile . Preadmission labs ordered and consult placed with vascular and ID for IV antibiotics. Mcroblog sent to admitting medicine team for admission 02/17/19 14:25 Spoke to admitting team Dr. Bojorquez who agrees to admit patient under Dr. Casarez. Consult placed with ID and vascular. Admission order placed Discharge - Discharge Information Problems reviewed: Yes Clinical Impression/Diagnosis: Wound, open, foot Qualifiers: Encounter type: initial encounter Laterality: left Qualified Code(s): S91.302A - Unspecified open wound, left foot, initial encounter Foot ulcer Qualifiers: Laterality: left Non-pressure ulcer stage: with necrosis of muscle Qualified Code(s): L97.523 - Non-pressure chronic ulcer of other part of left foot with necrosis of muscle Diabetic foot ulcer Qualifiers: Diabetic foot ulcer location: toe Diabetes mellitus type: type 2 Laterality: left Non-pressure ulcer stage: with muscle involvement without evidence of necrosis Qualified Code(s): E11.621 - Type 2 diabetes mellitus with foot ulcer Condition: Stable - Admission Yes - Follow up/Referral - Patient Discharge Instructions - Post Discharge Activity
--- NOTE | 2019-02-17 14:24 | HP ---
CHIEF COMPLAINT: left 5th toe infection PCP: none HISTORY OF PRESENT ILLNESS: Patient is a 58 y/o male with a history of DM, HTN, and venous insufficiency who presents from Dr. Malhotra office for amputation of the left 5th digit. Patient reports he has had non healing ulcers on his bilateral feet for 7 months. He was admitted here in 12/29 where the right foot was debrieded. Patient reports the right foot is healing well but the left foot is not. He went to see Dr. Santoyo today who reports he needs amputation of his left fifth toe. Patient takes 60-70 units of insulin at night and take it sporadically, reports his last A1C was 8. Patient reports he felt chills 2 days ago but it resolved. Denies any sick contacts. Patient does not have sensation in his feet, denies any pain at the site of ulcers. ER course was notable for: (1) (2) (3) Recent Travel: PAST MEDICAL HISTORY: DM, HTN, and venous insufficiency PAST SURGICAL HISTORY: R big toe ( 2008), hernia repair Social History: Smoking: smoked in the s has since quit Alcohol: 1 beer a day Drugs: denies Allergies Penicillins Allergy (Verified 12/23/18 10:42) HOME MEDICATIONS: Home Medications Medication Instructions Recorded Aspirin [ASA -] 81 mg PO DAILY 12/23/18 Carvedilol [Coreg] 6.25 mg PO DAILY 12/23/18 Clopidogrel Bisulfate [Clopidogrel] 75 mg PO DAILY 12/23/18 Acetaminophen [Tylenol .Regular 650 mg PO Q4H PRN tablet 12/29/18 Strength -] Atorvastatin Ca [Lipitor] 40 mg PO HS tablet 12/29/18 Insulin (Levemir) [Levemir Vial] 10 units SQ AM units 12/29/18 Lisinopril [Prinivil] 5 mg PO DAILY tablet 12/29/18 REVIEW OF SYSTEMS CONSTITUTIONAL: Absent: fever, chills, diaphoresis, generalized weakness, malaise, loss of appetite, weight change HEENT: Absent: rhinorrhea, nasal congestion, throat pain, throat swelling, difficulty swallowing, mouth swelling, ear pain, eye pain, visual changes CARDIOVASCULAR: Absent: chest pain, syncope, palpitations, irregular heart rate, lightheadedness , peripheral edema RESPIRATORY: Absent: cough, shortness of breath, dyspnea with exertion, orthopnea, wheezing, stridor, hemoptysis GASTROINTESTINAL: Absent: abdominal pain, abdominal distension, nausea, vomiting, diarrhea, constipation, melena, hematochezia GENITOURINARY: Absent: dysuria, frequency, urgency, hesitancy, hematuria, flank pain, genital pain MUSCULOSKELETAL: Absent: myalgia, arthralgia, joint swelling, back pain, neck pain SKIN: Absent: rash, itching, pallor HEMATOLOGIC/IMMUNOLOGIC: Absent: easy bleeding, easy bruising, lymphadenopathy, frequent infections ENDOCRINE: Absent: unexplained weight gain, unexplained weight loss, heat intolerance, cold intolerance NEUROLOGIC: Absent: headache, focal weakness or paresthesias, dizziness, unsteady gait, seizure, mental status changes, bladder or bowel incontinence PSYCHIATRIC: Absent: anxiety, depression, suicidal or homicidal ideation, hallucinations. PHYSICAL EXAMINATION Vital Signs - 24 hr 02/17/19 11:56 Temperature 98.2 F Pulse Rate 107 H Respiratory 16 Rate Blood Pressure 114/82 O2 Sat by Pulse 99 Oximetry (%) GENERAL: Awake, alert, and fully oriented, in no acute distress. HEAD: Normal with no signs of trauma. EYES: Pupils equal, round and reactive to light, extraocular movements intact, EARS, NOSE, THROAT: Moist mucous membranes. LUNGS: Breath sounds equal, clear to auscultation bilaterally. No wheezes, and no crackles. No accessory muscle use. HEART: Regular rate and rhythm, normal S1 and S2 without murmur, rub or gallop. ABDOMEN: Soft, nontender, not distended, normoactive bowel sounds, no guarding, no rebound, no masses. No hepatomegaly or splenomegaly. MUSCULOSKELETAL: Normal range of motion at all joints. No bony deformities or tenderness. LOWER EXTREMITIES: 2+ pulses, warm, well-perfused. No calf tenderness. No peripheral edema. NEUROLOGICAL: sensation intact on lower extremity, no sensation of plantar surface of b/l feet SKIN: R foot stage 1 ulcer plantar surface and stage 1 heel ulcer no erythema, Left foot stage 4 ulcer over lateral aspect of left foot ASSESSMENT/PLAN: Patient is a 58 y/o male with a history of DM, HTN, and venous insufficiency who presents from Dr. Malhotra office for amputation of the left 5th digit. #ulcer of left foot - advised to come in for amputation left 5th digit - f/u ID for abx coverage - f/u vascular - discussed with Dr Zhang, patient is scheduled for amputation on - will order MRI of left foot - F/u Xray of left foot - Vanc and Aztreonam one time - tylenol prn for fever - tachycardic, f/u sepsis w/o, 1L bolus given #MARIEL - cr 1.5 - f/u UA and urine elctrolytes - consider US if creatine does not improve - f/u with Nephro #DM - BGM's - SS - levemir 30 given once watch sugars and if controlled, continue levemir 60 tomorrow - last A1C 8 #HTN - continue carvedilol - continue lisinopril #vascular disease - continue aspirin 81 mg - continue clopidogrel #DVT ppx - heaprin TID FEN - low sodium/ diabetic diet Dispo: monitor on med surg Visit type - Emergency Visit Emergency Visit: Yes ED Registration Date: 02/17/19 Care time: The patient presented to the Emergency Department on the above date and was hospitalized for further evaluation of their emergent condition. - New Patient This patient is new to me today: Yes Date on this admission: 02/20/19 - Critical Care Critical Care patient: No ATTENDING PHYSICIAN STATEMENT I saw and evaluated the patient. I reviewed the resident's note and discussed the case with the resident. I agree with the resident's findings and plan as documented. SUBJECTIVE: OBJECTIVE: ASSESSMENT AND PLAN:
[2019-02-17 14:44] LABS: BASO % 0.6 % (0-2.0); EOS % 1.5 % (0-4.5); HEMATOCRIT 32.1 % (35.4-49); HEMOGLOBIN 10.5 GM/dL (11.7-16.9); LYMPH % 7.2 % (8-40); MCH 26.9 pg (25.7-33.7); MCHC 32.7 g/dl (32.0-35.9); MEAN CELL VOLUME 82.5 fl (80-96); MEAN PLT VOLUME 9.2 fl (7.5-11.1); MONO % 6.5 % (3.8-10.2); NEUT % 84.2 % (42.8-82.8); PLATELET COUNT 336 K/MM3 (134-434); WHITE BLOOD COUNT 9.2 K/mm3 (4.0-10.0)
[2019-02-17 15:10] LABS: BILIRUBIN,TOTAL 0.2 mg/dL (0.2-1); BLOOD UREA NITROGEN 17.7 mg/dL (7-18); CREATININE 1.5 mg/dL (0.55-1.3); INR 1.18 (0.83-1.09); PROTHROMBIN TIME (PATIENT) 13.9 SEC (9.7-13.0); TOT PROT 7.9 g/dl (6.4-8.2)
[2019-02-17 15:13] LABS: ACTIVATED PTT 31.2 SECONDS (25.2-36.5)
[2019-02-17] MEDS ORDERED: LACTATED RINGERS SOLUTION 1000 ML INFUS.BAG IV ONE (16:24)
[2019-02-17] MEDS ORDERED: VANCOMYCIN 1 GM in D5W (PRE-DOCKED) 1,000 MG/250 ML IVPB ONE (16:29)
[2019-02-17] MEDS ORDERED: INSULIN (LEVEMIR) 100 UNITS/ML UNITS SQ ONE (16:30)
--- NOTE | 2019-02-17 17:03 | PN ---
Progress Note (short form) - Note Progress Note: ID consult dictated imp/reccd 58 yo male with poorly controlled DM and PVD- s/p bilateral vascularization [place] the city (did not return for f/u) admitted with chills and infected left foot diabetic ulcer infected diabetic foot ulcer cellultis probable osteomyelitis poorly controlled DM PVD pen allergy mariel vanco/cefepime esr/crp xrays MRI vascular surgery consult podiatry consult Problem List - Problems (1) Diabetic foot ulcer Code(s): E11.621 - TYPE 2 DIABETES MELLITUS WITH FOOT ULCER; L97.509 - NON- PRESSURE CHRONIC ULCER OTH PRT UNSP FOOT W UNSP SEVERITY Qualifiers: Diabetic foot ulcer location: toe Diabetes mellitus type: type 2 Laterality: left Non-pressure ulcer stage: with muscle involvement without evidence of necrosis Qualified Code(s): E11.621 - Type 2 diabetes mellitus with foot ulcer; L97.525 - Non-pressure chronic ulcer of other part of left foot with muscle involvement without evidence of necrosis (2) Osteomyelitis Code(s): M86.9 - OSTEOMYELITIS, UNSPECIFIED (3) PVD (peripheral vascular disease) Code(s): I73.9 - PERIPHERAL VASCULAR DISEASE, UNSPECIFIED (4) MARIEL (acute kidney injury) Code(s): N17.9 - ACUTE KIDNEY FAILURE, UNSPECIFIED (5) Penicillin allergy Code(s): Z88.0 - ALLERGY STATUS TO PENICILLIN
[2019-02-17] MEDS: INSULIN SLIDING SCALE (NOVOLOG) 1 VIAL SQ SCH ×2 (17:29→22:29)
[2019-02-17] MEDS ORDERED: AZTREONAM 1 GM in DEXTROSE 5%-WATER - 50 ML IVPB SCH (18:00)
--- NOTE | 2019-02-17 19:51 | CONS ---
DATE OF CONSULTATION: 02/17/2019 CONSULTATION REQUESTED BY: Hospitalist Service HISTORY OF PRESENT ILLNESS: The patient is a 58-year-old man with a past medical history of poor controlled diabetes. He has a history of peripheral vascular disease. He is status post angioplasty of both lower extremities, the left recent in December/January. He had it done in the city and has not had any followup of his left leg. I last saw him in December when he had a right heel abscess. An MRI showed no osteomyelitis. The abscess was drained. He was treated with oral Bactrim for two weeks with good resolution. He has had a chronic ulcer of the left foot, the lateral aspect of the 5th toe, which has worsened over the course of the last month. He was being followed in wound care but has not been there in three weeks, as he had personal issues. He presented today to wound care with a worsening ulcer on the lateral aspect of the left foot at the base of the 5th toe with surrounding erythema. The ulcer was debrided. It extends to bone. It was debrided and he was sent to the ER. He notes that he has had chills for the last two nights. He denies any nausea, vomiting, diarrhea or dysuria. He has no chest pain. He still uses his scooter to ambulate. His wound was debrided in the wound care clinic by admissions gate attendant, Dr. Santoyo. The patient was noted at that time to have a plantar fifth ray diabetic ulcer that probe to bone with purulent drainage. PAST MEDICAL/SURGICAL HISTORY: Notable for peripheral neuropathy, congestive heart failure, gastroparesis, non-healing foot ulcers, peripheral vascular disease status post bilateral revascularization with no followup. He is a poor controlled diabetic status post amputation of the right great toe. He has had a hernia repair. SOCIAL HISTORY: He lives alone. He is on disability. 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 No recent travel. He does not smoke but is a former smoker. No history of substance use. FAMILY HISTORY: Noncontributory. ALLERGIES: PENICILLIN. However, he can tolerate cephalosporins. REVIEW OF SYSTEMS: As per HPI. PHYSICAL EXAMINATION: General: He is awake and alert. Vital Signs: Temperature is 98.2, pulse 107, blood pressure 114/82, respiratory rate 16. HEENT: Normocephalic. His eyes are anicteric. Neck: Supple. Lungs: Clear to auscultation. Heart: Regular rate and rhythm. Abdomen: Soft, nontender. Extremities: Notable for the right foot, where he has no real open ulcers. He has a small, shallow ulcer on the lateral aspect of the right foot and the right heel as well as a very shallow ulcer with no erythema that does not probe to bone. On the other hand, he now has a large ulcer on the lateral aspect of the left foot that has significant surrounding erythema. This is the area he reports was debrided. I cannot palpate pulses bilaterally. LABORATORY DATA: White count is 9.2, hemoglobin is 10.5, platelets are 336. His INR is 1.18. BUN and creatinine are 17 and 1.5. Blood cultures have been sent and are pending. In summary, this is a 58-year-old man with an infected diabetic ulcer, probable osteomyelitis of the left foot, 5th toe, PENICILLIN ALLERGY, with acute kidney injury in the setting of poorly controlled diabetes. I would suggest he get a sed rate and a CRP to trend. I will treat him with vancomycin and cefepime at this time. Would obtain operative cultures. He reports to me that he is scheduled for surgery tomorrow. He has been scheduled for x-rays and an MRI as well, which are pending at this time. Further recommendations to follow. VARINDER BRAXTON M.D. [id number]
[2019-02-17] MEDS ORDERED: CEFEPIME 1 GM/100 ML BAG IVPB ONE (23:09)
[2019-02-17] MEDS: HEPARIN NA (PORCINE) 5,000 UNITS/ML 1ML VIAL SQ SCH (23:14)
[2019-02-17] MEDS: CEFEPIME 1 GM in DEXTROSE 5%-WATER 100 ML IVPB SCH (23:14)
[2019-02-17] MEDS: ATORVASTATIN CA 40 MG TABLET (FP) PO SCH (23:14)
[2019-02-17] MEDS ORDERED: ACETAMINOPHEN 325 MG TABLET (FP) ONE (23:22)
[2019-02-17] MEDS: ACETAMINOPHEN 325 MG TABLET (FP) PO PRN (23:26)
[2019-02-18] MEDS: HEPARIN NA (PORCINE) 5,000 UNITS/ML 1ML VIAL SQ SCH ×3 (06:08→22:00)
[2019-02-18] MEDS: INSULIN SLIDING SCALE (NOVOLOG) 1 VIAL SQ SCH ×4 (06:08→23:11)
[2019-02-18] MEDS ORDERED: SODIUM CHLORIDE 1,000 ML IV SCH (08:30)
[2019-02-18 09:30] LABS: BASO % 0.6 % (0-2.0); EOS % 2.9 % (0-4.5); HEMATOCRIT 30.1 % (35.4-49); HEMOGLOBIN 9.8 GM/dL (11.7-16.9); LYMPH % 9.5 % (8-40); MCH 26.9 pg (25.7-33.7); MCHC 32.7 g/dl (32.0-35.9); MEAN CELL VOLUME 82.3 fl (80-96); MEAN PLT VOLUME 8.9 fl (7.5-11.1); MONO % 9.6 % (3.8-10.2); NEUT % 77.4 % (42.8-82.8); PLATELET COUNT 316 K/MM3 (134-434); RBC 3.66 M/mm3 (4.00-5.60); RDW 15.8 % (11.9-15.9); WHITE BLOOD COUNT 7.5 K/mm3 (4.0-10.0)
[2019-02-18] MEDS ORDERED: CLOPIDOGREL BISULFATE 75 MG TABLET (FP) PO SCH (10:00)
[2019-02-18] MEDS ORDERED: CARVEDILOL 6.25 MG TABLET (FP) PO SCH (10:00)
[2019-02-18] MEDS ORDERED: LISINOPRIL 5 MG TABLET (FP) PO SCH (10:00)
[2019-02-18] MEDS ORDERED: ASPIRIN 81 MG CHEWABLE TABLETS PO SCH (10:00)
[2019-02-18 10:06] LABS: PH,URINE 5.5 (5.0-8.0); URINE APPEARANCE CLEAR; URINE BILIRUBIN NEGATIVE (NEGATIVE); URINE COLOR YELLOW; URINE GLUCOSE (UA) NEGATIVE (NEGATIVE); URINE KETONE NEGATIVE (NEGATIVE); URINE LEUK ESTERASE NEGATIVE (NEGATIVE); URINE NITRITE NEGATIVE (NEGATIVE); URINE PROTEIN NEGATIVE (NEGATIVE); URINE UROBILINOGEN 0.2 mg/dL (0.2-1.0)
[2019-02-18 10:08] LABS: ALBUMIN 2.6 g/dl (3.4-5.0); BILIRUBIN,TOTAL 0.2 mg/dL (0.2-1); BLOOD UREA NITROGEN 16.8 mg/dL (7-18); CALCIUM 8.7 mg/dL (8.5-10.1); CREATININE 1.2 mg/dL (0.55-1.3); MAGNESIUM 2.2 mg/dL (1.8-2.4); PHOSPHOROUS 3.2 mg/dL (2.5-4.9); POTASSIUM 4.4 mmol/L (3.5-5.1)
[2019-02-18] MEDS ORDERED: CEFEPIME HCL 1 GM VIAL (RESTRICTED TO ID) ONE ×2 (11:37→22:37)
[2019-02-18] MEDS ORDERED: DEXTROSE 5%-WATER 100 ML IVPB ONE (11:39)
--- NOTE | 2019-02-18 11:41 | PN ---
Progress Note (short form) - Note Progress Note: feels better this am Vital Signs Period Temp Pulse Resp BP Sys/Dominguez Pulse Ox Last 24 Hr 97.6 F-98.2 F 82-107 16-22 114-132/75-83 98-100 cor rrr lungs clear foot with less erythema, no crepitus ulcer with purulence CBC, BMP 02/18/19 08:47 02/18/19 08:47 MRI -osteo with abscess with air Laboratory Tests 02/18/19 02/18/19 08:47 08:47 ESR 108 H C-Reactive Protein 9.7 H a/p infected diabetic foot ulcer cellultis and abscess osteomyelitis poorly controlled DM PVD pen allergy mariel vanco/cefepime-add flagyl MRI-noted for operative debridement today-patient is NPO vascular surgery consult podiatry consult consult Problem List - Problems (1) Diabetic foot ulcer Code(s): E11.621 - TYPE 2 DIABETES MELLITUS WITH FOOT ULCER; L97.509 - NON- PRESSURE CHRONIC ULCER OTH PRT UNSP FOOT W UNSP SEVERITY Qualifiers: Diabetic foot ulcer location: toe Diabetes mellitus type: type 2 Laterality: left Non-pressure ulcer stage: with muscle involvement without evidence of necrosis Qualified Code(s): E11.621 - Type 2 diabetes mellitus with foot ulcer; L97.525 - Non-pressure chronic ulcer of other part of left foot with muscle involvement without evidence of necrosis (2) Osteomyelitis Code(s): M86.9 - OSTEOMYELITIS, UNSPECIFIED (3) PVD (peripheral vascular disease) Code(s): I73.9 - PERIPHERAL VASCULAR DISEASE, UNSPECIFIED (4) MARIEL (acute kidney injury) Code(s): N17.9 - ACUTE KIDNEY FAILURE, UNSPECIFIED (5) Penicillin allergy Code(s): Z88.0 - ALLERGY STATUS TO PENICILLIN
[2019-02-18] MEDS: CEFEPIME 1 GM in DEXTROSE 5%-WATER 100 ML IVPB SCH ×3 (11:48→23:20)
[2019-02-18] MEDS: ACETAMINOPHEN 325 MG TABLET (FP) PO PRN (12:09)
--- NOTE | 2019-02-18 12:11 | EKG ---
Test Reason : Blood Pressure : / mmHG Vent. Rate : 092 BPM Atrial Rate : 092 BPM P-R Int : 118 ms QRS Dur : 086 ms QT Int : 356 ms P-R-T Axes : 048 -33 011 degrees QTc Int : 440 ms POOR DATA QUALITY, INTERPRETATION MAY BE ADVERSELY AFFECTED NORMAL SINUS RHYTHM LEFT AXIS DEVIATION MINIMAL VOLTAGE CRITERIA FOR LVH, MAY BE NORMAL VARIANT ABNORMAL ECG WHEN COMPARED WITH ECG OF 17-FEB-2019 14:48, PREVIOUS ECG HAS UNDETERMINED RHYTHM, NEEDS REVIEW Confirmed by TATY SCOTT, MONIE ([id number]) on 02/18/2019 12:11:26 PM Referred By: Confirmed By:MONIE POSEY MD
--- NOTE | 2019-02-18 13:55 | CONSULT ---
Consult Consult Specialty:: Nephrology Reason for Consultation:: MARIEL - History of Present Illness Chief Complaint: sent in for amputation of left 5th toe History of Present Illness: Pt is a 58 year old make with pmhx of DM, HTN, venous insufficiency and CHF who was sent in for left fifth toe amputation. I was called to evaluate him for elevated creatinine. He denies history of CKD. He says that he had uncontrolled DM in the past however his DM has been more controlled recently. 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 His renal function improved with fluids. 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, Other Cardio/Vascular: Yes: CHF (EF 35-55%), HTN Gastrointestinal: Yes: Other (gastroparesis) Infectious Disease: Yes: Other (non healing foot ulcers on both) Endocrine: Yes: Diabetes Mellitus - Past Surgical History Past Surgical History: Yes: Amputation (right great toe), Hernia Repair - Alcohol/Substance Use Hx Alcohol Use: No - Smoking History Smoking history: Never smoked Have you smoked in the past 12 months: No If you are a former smoker, when did you quit?: 20 YEARS AGO - Social History Usual Living Arrangement: Alone ADL: Independent 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 History of Recent Travel: No Home Medications - Allergies Allergies/Adverse Reactions: Allergies Allergy/AdvReac Type Severity Reaction Status Date / Time Penicillins Allergy Verified 12/23/18 10:42 - Home Medications Home Medications: Ambulatory Orders Aspirin [ASA -] 81 mg PO DAILY 12/23/18 Carvedilol [Coreg] 6.25 mg PO DAILY 12/23/18 Clopidogrel Bisulfate [Clopidogrel] 75 mg PO DAILY 12/23/18 Atorvastatin Ca [Lipitor] 40 mg PO HS tablet 12/29/18 Insulin (Levemir) [Levemir Vial] 10 units SQ AM units 12/29/18 Lisinopril [Prinivil] 5 mg PO DAILY tablet 12/29/18 Family Medical History Family History: Denies Review of Systems - Review of Systems Constitutional: reports: No Symptoms Eyes: reports: No Symptoms HENT: reports: No Symptoms Neck: reports: No Symptoms Cardiovascular: reports: No Symptoms Respiratory: reports: No Symptoms Gastrointestinal: reports: No Symptoms Genitourinary: reports: No Symptoms Musculoskeletal: reports: Other (toe osteo) Integumentary: reports: Wound Neurological: reports: No Symptoms Hematology/Lymphatic: reports: No Symptoms Psychiatric: reports: No Symptoms Physical Exam Vital Signs: Vital Signs Temperature 98 F 02/18/19 10:19 Pulse Rate 90 02/18/19 10:19 Respiratory Rate 22 H 02/18/19 10:19 Blood Pressure 131/83 02/18/19 10:19 O2 Sat by Pulse Oximetry (%) 100 02/18/19 09:50 Constitutional: Yes: Calm Eyes: Yes: Conjunctiva Clear HENT: Yes: Atraumatic Cardiovascular: Yes: S1, S2 Respiratory: Yes: CTA Bilaterally Gastrointestinal: Yes: Normal Bowel Sounds, Soft Renal/: Yes: WNL Extremities: Yes: Other (left foot infection) Neurological: Yes: Oriented Psychiatric: Yes: Oriented Labs: CBC, BMP 02/18/19 08:47 02/18/19 08:47 Laboratory Tests 12/28/18 12/28/18 02/17/19 07:00 10:32 14:21 Creatinine 1.0 0.9 1.5 H Urine Protein Urine Blood 02/18/19 02/18/19 08:47 09:52 Creatinine 1.2 Urine Protein Negative Urine Blood Negative Problem List - Problems (1) MARIEL (acute kidney injury) Code(s): N17.9 - ACUTE KIDNEY FAILURE, UNSPECIFIED (2) Diabetic foot ulcer Code(s): E11.621 - TYPE 2 DIABETES MELLITUS WITH FOOT ULCER; L97.509 - NON- PRESSURE CHRONIC ULCER OTH PRT UNSP FOOT W UNSP SEVERITY Qualifiers: Diabetic foot ulcer location: toe Diabetes mellitus type: type 2 Laterality: left Non-pressure ulcer stage: with muscle involvement without evidence of necrosis Qualified Code(s): E11.621 - Type 2 diabetes mellitus with foot ulcer; L97.525 - Non-pressure chronic ulcer of other part of left foot with muscle involvement without evidence of necrosis (3) Osteomyelitis Code(s): M86.9 - OSTEOMYELITIS, UNSPECIFIED Assessment/Plan Current Medications Generic Name Dose Route Start Last Admin Trade Name Freq PRN Reason Stop Dose Admin Acetaminophen 650 mg 02/17/19 14:21 02/18/19 12:09 Tylenol - PO 650 mg Q4H PRN Administration PAIN OR FEVER Aspirin 81 mg 02/18/19 10:00 02/18/19 11:47 Asa - PO Not Given DAILY HERON Atorvastatin Calcium 40 mg 02/17/19 22:00 02/17/19 23:14 Lipitor - PO 40 mg HS HERON Administration Carvedilol 6.25 mg 02/18/19 10:00 Coreg - PO DAILY [facility] Clopidogrel Bisulfate 75 mg 02/18/19 10:00 02/18/19 11:48 Plavix - PO Not Given DAILY [facility]ON Heparin Sodium (Porcine) 5,000 unit 02/17/19 22:00 02/18/19 06:08 Heparin - SQ 5,000 unit TID HERON Administration Sodium Chloride 1,000 mls @ 100 mls/hr 02/18/19 08:30 02/18/19 08:48 Normal Saline - IV 100 mls/hr ASDIR HERON Administration Metronidazole 500 mg in 100 mls @ 100 mls/hr 02/18/19 11:45 02/18/19 11:48 Flagyl 500mg Premixed Ivpb - IVPB 100 mls/hr Q8H-IV HERON Administration Vancomycin HCl 1,000 mg in 250 mls @ 166.667 mls/hr 02/18/19 12:00 Vancomycin (Pre-Docked) IVPB Q12H [facility] Protocol Cefepime HCl 1 gm/ Dextrose 100 mls @ 200 mls/hr 02/18/19 12:00 02/18/19 11: 55 IVPB Not Given Q8H-IV [facility] Protocol Insulin Aspart 1 vial 02/17/19 16:30 02/18/19 06:08 Novolog Vial Sliding Scale - SQ Not Given ACHS [facility] Protocol Impression 1. MARIEL 2. DM 3. osteo 4. hx CHF 5. venous insufficiency Plan - change fluids to 1/2 ns and decrease rate - repeat labs in am - renal function is improving - ua neg for blood or protein - check renal ultrasound - avoid nsaids and nephrotoxins
[2019-02-18] MEDS: VANCOMYCIN 1 GRAM (PRE-DOCKED) 1,000 MG/250 ML BAG IVPB SCH (15:03)
--- NOTE | 2019-02-18 15:23 | PN ---
Physical Exam: SUBJECTIVE: Patient seen and examined. He was previously having sharp toe pain that has since resolved. He reports chills, as well as decreased redness around toe. He denies fever, chest pain, shortness of breath, abdominal pain, nausea, and vomiting. OBJECTIVE: Vital Signs Period Temp Pulse Resp BP Sys/Dominguez Pulse Ox Last 24 Hr 97.6 F-98.2 F 82-106 16-22 124-132/75-83 98-100 GENERAL: The patient is awake, alert, and fully oriented, in no acute distress. HEAD: Normal with no signs of trauma. EYES: PERRL, extraocular movements intact, sclera anicteric, conjunctiva clear. No ptosis. ENT: Ears normal, nares patent, moist mucous membranes. NECK: Trachea midline, full range of motion, supple. LUNGS: Breath sounds equal, clear to auscultation bilaterally, no wheezes, no crackles, no accessory muscle use. HEART: Regular rate and rhythm, S1, S2 without murmur, rub or gallop. ABDOMEN: Soft, nontender, nondistended, normoactive bowel sounds, no guarding, no rebound, no hepatosplenomegaly, no masses. EXTREMITIES: 2+ pulses, warm, well-perfused, no edema. Left foot is bandaged. NEUROLOGICAL: Cranial nerves II through XII grossly intact. Normal speech, gait not observed. PSYCH: Normal mood, normal affect. SKIN: Warm, dry, normal turgor, no rashes or lesions noted Laboratory Results - last 24 hr 02/17/19 02/17/19 02/18/19 17:26 22:11 06:06 WBC RBC Hgb Hct MCV MCH MCHC RDW Plt Count MPV Absolute Neuts (auto) Neutrophils % Lymphocytes % Monocytes % Eosinophils % Basophils % Nucleated RBC % ESR Sodium Potassium Chloride Carbon Dioxide Anion Gap BUN Creatinine Est GFR (CKD-EPI)AfAm Est GFR (CKD-EPI)NonAf POC Glucometer 161 131 89 Random Glucose Calcium Phosphorus Magnesium Total Bilirubin AST ALT Alkaline Phosphatase C-Reactive Protein Total Protein Albumin Urine Color Urine Appearance Urine pH Ur Specific [place] Urine Protein Urine Glucose (UA) Urine Ketones Urine Blood Urine Nitrite Urine Bilirubin Urine Urobilinogen Ur Leukocyte Esterase Ur Random Sodium Ur Random Potassium Ur Random Chloride 02/18/19 02/18/19 02/18/19 08:47 08:47 08:47 WBC 7.5 RBC 3.66 L Hgb 9.8 L Hct 30.1 L MCV 82.3 MCH 26.9 MCHC 32.7 RDW 15.8 Plt Count 316 MPV 8.9 Absolute Neuts (auto) 5.8 Neutrophils % 77.4 Lymphocytes % 9.5 D Monocytes % 9.6 Eosinophils % 2.9 D Basophils % 0.6 Nucleated RBC % 0 ESR Sodium 140 Potassium 4.4 Chloride 107 Carbon Dioxide 29 Anion Gap 4 L BUN 16.8 Creatinine 1.2 Est GFR (CKD-EPI)AfAm 76.79 Est GFR (CKD-EPI)NonAf 66.26 POC Glucometer Random Glucose 81 Calcium 8.7 Phosphorus 3.2 Magnesium 2.2 Total Bilirubin 0.2 AST 9 L ALT 12 L Alkaline Phosphatase 60 C-Reactive Protein 9.7 H Total Protein 7.0 Albumin 2.6 L Urine Color Urine Appearance Urine pH Ur Specific [place] Urine Protein Urine Glucose (UA) Urine Ketones Urine Blood Urine Nitrite Urine Bilirubin Urine Urobilinogen Ur Leukocyte Esterase Ur Random Sodium Ur Random Potassium Ur Random Chloride 02/18/19 02/18/19 02/18/19 08:47 09:52 09:52 WBC RBC Hgb Hct MCV MCH MCHC RDW Plt Count MPV Absolute Neuts (auto) Neutrophils % Lymphocytes % Monocytes % Eosinophils % Basophils % Nucleated RBC % ESR 108 H Sodium Potassium Chloride Carbon Dioxide Anion Gap BUN Creatinine Est GFR (CKD-EPI)AfAm Est GFR (CKD-EPI)NonAf POC Glucometer Random Glucose Calcium Phosphorus Magnesium Total Bilirubin AST ALT Alkaline Phosphatase C-Reactive Protein Total Protein Albumin Urine Color Yellow Urine Appearance Clear Urine pH 5.5 Ur Specific [place] 1.023 Urine Protein Negative Urine Glucose (UA) Negative Urine Ketones Negative Urine Blood Negative Urine Nitrite Negative Urine Bilirubin Negative Urine Urobilinogen 0.2 Ur Leukocyte Esterase Negative Ur Random Sodium 144 Ur Random Potassium 64.0 Ur Random Chloride 191 Active Medications Generic Name Dose Route Start Last Admin Trade Name Freq PRN Reason Stop Dose Admin Acetaminophen 650 mg 02/17/19 14:21 02/18/19 12:09 Tylenol - PO 650 mg Q4H PRN Administration PAIN OR FEVER Aspirin 81 mg 02/18/19 10:00 02/18/19 11:47 Asa - PO Not Given DAILY [facility] Atorvastatin Calcium 40 mg 02/17/19 22:00 02/17/19 23:14 Lipitor - PO 40 mg HS HERON Administration Carvedilol 6.25 mg 02/18/19 10:00 Coreg - PO DAILY [facility] Clopidogrel Bisulfate 75 mg 02/18/19 10:00 02/18/19 11:48 Plavix - PO Not Given DAILY [facility] Heparin Sodium (Porcine) 5,000 unit 02/17/19 22:00 02/18/19 14:04 Heparin - SQ Not Given TID HERON Sodium Chloride 1,000 mls @ 100 mls/hr 02/18/19 08:30 02/18/19 08:48 Normal Saline - IV 100 mls/hr ASDIR [facility]ON Administration Metronidazole 500 mg in 100 mls @ 100 mls/hr 02/18/19 11:45 02/18/19 11:48 Flagyl 500mg Premixed Ivpb - IVPB 100 mls/hr Q8H-IV [facility] Administration Vancomycin HCl 1,000 mg in 250 mls @ 166.667 mls/hr 02/18/19 12:00 02/18/19 15:03 Vancomycin (Pre-Docked) IVPB 166.667 mls/hr Q12H [facility] Administration Protocol Cefepime HCl 1 gm/ Dextrose 100 mls @ 200 mls/hr 02/18/19 12:00 02/18/19 11: 55 IVPB Not Given Q8H-IV [facility] Protocol Insulin Aspart 1 vial 02/17/19 16:30 02/18/19 14:49 Novolog Vial Sliding Scale - SQ Not Given ACHS [facility] Protocol ASSESSMENT/PLAN: Mr. Cobian is a 58 y/o male with DM, HTN, and venous insufficiency who presents from Dr. Santoyo's office for amputation of the left 5th digit. #left 5th toe osteomyelitis Pt tachycardic at presentation, afebrile, no leukocytosis. MRI shows soft tissue swelling around ulceration at lateral aspect at distal surface with osteomyelitis. -podiatry following- plan for exploratory procedure this evening -ID following- abx initiated -Vancomycin -Cefepime -Flagyl -Tylenol for pain, reassess if necessary -NPO for surgery #peripheral vascular disease s/p b/l revascularization this year -vascular following -restart ASA and Plavix after surgery as recommended -continue atorvastatin #MARIEL, improving Cr 1.5-->1.2 -nephrology following -NS 100 mL/hr #DM A1C 8.0 two months ago. On levemir 60U at home. BG 100s-89 today -SSI -BGM #HTN Normotensive -hold meds DVT Ppx heparin FEN NPO monitor Cr Visit type - Emergency Visit Emergency Visit: Yes ED Registration Date: 02/17/19 Care time: The patient presented to the Emergency Department on the above date and was hospitalized for further evaluation of their emergent condition. - New Patient This patient is new to me today: Yes Date on this admission: 02/18/19 - Critical Care Critical Care patient: No - Discharge Referral Referred to [facility] No ATTENDING PHYSICIAN STATEMENT I saw and evaluated the patient. I reviewed the resident's note and discussed the case with the resident. I agree with the resident's findings and plan as documented. SUBJECTIVE: OBJECTIVE: ASSESSMENT AND PLAN:
--- NOTE | 2019-02-18 15:45 | CONSULT ---
<Satish Coronado - Last Filed: 02/18/19 16:31> - Consultation REQUESTING PROVIDER: CONSULT REQUEST: We have been asked to surgically evaluate this patient for left great toe ulcer/evaluation of PAD. PCP:Jannette Read HISTORY OF PRESENT ILLNESS: 58 y/o M w/ PMHx IDDM (per pt last A1C 8), HTN, PAD sent from Dr. Santoyo's office for amputation of the left 5th digit. Vascular consulted for evaluation. Pt reports L toe/foot wound has been present for the past month. Initially began as a blister, pt believes from ill-fitting shoe wear. Reports he has been following up with Dr Santoyo and has been prescribed Santyl/Silvadene without improvement in the wound. Had erythema and edema in his L foot which he reports has improved. Has not been ambulating for the past few weeks due to L foot wound (using scooter). Prior to L foot wound pt reports he was able to ambulate unlimited amounts without claudication sxs. Denies h/o rest pain. Has has several wounds to his R foot over the past year which are in various stages of healing. Had R heel abscess which was debrided on 01/16 by DPM (Dr Silva) and has nearly healed. Pt reports he was seen at [facility] by vascular in September and December at which times he had angiograms/angioplastys of the L and R LEs. Has not followed up as he reports he was not told to. Has been taking ASA/ Plavix since, held for the past 3 days. Has remote h/o tobacco use in his 20s- 30s (socially). PMHx: as above PSHx: as above Home Medications Medication Instructions Recorded Aspirin [ASA -] 81 mg PO DAILY 12/23/18 Carvedilol [Coreg] 6.25 mg PO DAILY 12/23/18 Clopidogrel Bisulfate [Clopidogrel] 75 mg PO DAILY 12/23/18 Atorvastatin Ca [Lipitor] 40 mg PO HS tablet 12/29/18 Insulin (Levemir) [Levemir Vial] 10 units SQ AM units 12/29/18 Lisinopril [Prinivil] 5 mg PO DAILY tablet 12/29/18 Allergies Allergy/AdvReac Type Severity Reaction Status Date / Time Penicillins Allergy Verified 12/23/18 10:42 REVIEW OF SYSTEMS: CONSTITUTIONAL: Absent: fever, chills CARDIOVASCULAR: Absent: chest pain, syncope RESPIRATORY: Absent: cough, shortness of breath GASTROINTESTINAL: Absent: abdominal pain PHYSICAL EXAM: GENERAL: Awake, alert, and fully oriented, in no acute distress. HEAD: Normal with no signs of trauma. LOWER EXTREMITIES: R foot with nearly healed heel ulcer, approx .5x.5cm circular with no erythema or drainage. Two separate plantar scars on right foot , well healed. L foot with approx 5x4.5cm ulcer at lateral aspect of foot overlying 5th metatarsal and extending to plantar surface. Lateral aspect with moderate amount of fibrinous/necrotic debris, palpable bone, + foul odor, scant purulent drainage. Plantar surface with scabbing noted. + erythema overlying dorsal aspect of foot, trace edema. + ttp. No calf edema, no venous stasis ulcers, no evidence of hyperpigmentation noted. Vasc: 2+ b/l fem, 2+ b/l pop, 2+ b/l dp, pt's bilaterally with biphasic doppler signal. Vital Signs Temperature 98 F 02/18/19 10: Pulse Rate 90 02/18/19 10:19 Respiratory Rate 22 H 02/18/19 10:19 Blood Pressure 131/83 02/18/19 10:19 O2 Sat by Pulse Oximetry (%) 100 02/18/19 09:50 Lab Results WBC 7.5 K/mm3 (4.0-10.0) 02/18/19 08:47 RBC 3.66 M/mm3 (4.00-5.60) L 02/18/19 08:47 Hgb 9.8 GM/dL (11.7-16.9) L 02/18/19 08:47 Hct 30.1 % (35.4-49) L 02/18/19 08:47 MCV 82.3 fl (80-96) 02/18/19 08:47 MCHC 32.7 g/dl (32.0-35.9) 02/18/19 08:47 RDW 15.8 % (11.9-15.9) 02/18/19 08:47 Plt Count 316 K/MM3 (134-434) 02/18/19 08:47 Sodium 140 mmol/L (136-145) 02/18/19 08:47 Potassium 4.4 mmol/L (3.5-5.1) 02/18/19 08:47 Chloride 107 mmol/L (98-107) 02/18/19 08:47 Carbon Dioxide 29 mmol/L (21-32) 02/18/19 08:47 Anion Gap 4 MMOL/L (8-16) L 02/18/19 08:47 BUN 16.8 mg/dL (7-18) 02/18/19 08:47 Creatinine 1.2 mg/dL (0.55-1.3) 02/18/19 08:47 Random Glucose 81 mg/dL (74-106) 02/18/19 08:47 Calcium 8.7 mg/dL (8.5-10.1) 02/18/19 08:47 INR 1.18 (0.83-1.09) H 02/17/19 14:21 A/P: 58 y/o M w/ PMHx IDDM (per pt last A1C 8), HTN, PAD sent from Dr. Santoyo 's office for amputation of the left 5th digit. Vascular consulted for evaluation. Pt planned for amputation today with Podiatry. Vascular exam appears to be intact, likely has microvascular disease. However, a formal arterial duplex would be beneficial due to recent angiograms/ angioplastys. This can be done on an outpatient basis with Dr Alvarado (pt would like to establish a Vascular surgeon at [facility]). Resume ASA/plavix when cleared by Podiatry Continue statin F/U with Dr Alvarado upon discharge Please call with any further questions/concerns d/w attending Dr Alvarado <Brandon Alvarado - Last Filed: 02/20/19 08:42> - Consultation REQUESTING PROVIDER: CONSULT REQUEST: We have been asked to surgically evaluate this patient for ( specify). PCP:Derick Chanel MD HISTORY OF PRESENT ILLNESS: PMHx: PSHx: Home Medications Medication Instructions Recorded Aspirin [ASA -] 81 mg PO DAILY 12/23/18 Carvedilol [Coreg] 6.25 mg PO DAILY 12/23/18 Clopidogrel Bisulfate [Clopidogrel] 75 mg PO DAILY 12/23/18 Atorvastatin Ca [Lipitor] 40 mg PO HS tablet 12/29/18 Insulin (Levemir) [Levemir Vial] 10 units SQ AM units 12/29/18 Lisinopril [Prinivil] 5 mg PO DAILY tablet 12/29/18 Allergies Allergy/AdvReac Type Severity Reaction Status Date / Time Penicillins Allergy Verified 12/23/18 10:42 REVIEW OF SYSTEMS: CONSTITUTIONAL: Absent: fever, chills, diaphoresis, generalized weakness, malaise, loss of appetite, weight change CARDIOVASCULAR: Absent: chest pain, syncope, palpitations, irregular heart rate, lightheadedness , peripheral edema RESPIRATORY: Absent: cough, shortness of breath, dyspnea with exertion, wheezing, stridor, hemoptysis GASTROINTESTINAL: Absent: abdominal pain, abdominal distension, nausea, vomiting, diarrhea, constipation, melena, hematochezia GENITOURINARY: Absent: dysuria, frequency, urgency, hesitancy, hematuria, flank pain, genital pain MUSCULOSKELETAL: Absent: myalgia, arthralgia, joint swelling, back pain, neck pain SKIN: Absent: rash, itching, pallor HEMATOLOGIC/IMMUNOLOGIC: Absent: easy bleeding, easy bruising, lymphadenopathy NEUROLOGIC: Absent: headache, focal weakness, paresthesias, dizziness, unsteady gait, seizure, mental status changes, bladder or bowel incontinence PSYCHIATRIC: Absent: anxiety, depression, suicidal or homicidal ideation, hallucinations. PHYSICAL EXAM: GENERAL: Awake, alert, and fully oriented, in no acute distress. HEAD: Normal with no signs of trauma. EYES: PERRL, sclera anicteric, conjunctiva clear. NECK: Normal ROM, supple without lymphadenopathy, JVD, or masses. LUNGS: Clear to auscultation bilat anteriorly. No wheezes, and no crackles. No accessory muscle use. HEART: Regular rate and rhythm. No murmurs ABDOMEN: Soft, nontender, not distended, normoactive bowel sounds, no guarding, no rebound, no masses. No organomegaly. MUSCULOSKELETAL: Normal ROM at all joints. No bony deformities or tenderness. No CVA tenderness. UPPER EXTREMITIES: 2+ pulses, warm, well-perfused. No cyanosis. Cap refill <2 seconds. No peripheral edema. LOWER EXTREMITIES: 2+ pulses, warm, well-perfused. No calf tenderness. No peripheral edema. NEUROLOGICAL: Normal speech, gait not observed. PSYCH: Cooperative. Good eye contact. Appropriate mood and affect. SKIN: Warm, dry, normal turgor, no rashes or lesions noted. Vital Signs Temperature 97.6 F 10/11/19 06:00 Pulse Rate 74 02/20/19 06:00 Respiratory Rate 18 02/20/19 06:00 Blood Pressure 124/65 02/20/19 06:00 O2 Sat by Pulse Oximetry (%) 98 02/19/19 21:00 Lab Results WBC 9.8 K/mm3 (4.0-10.0) 02/19/19 08:10 RBC 3.57 M/mm3 (4.00-5.60) L 02/19/19 08:10 Hgb 9.8 GM/dL (11.7-16.9) L 02/19/19 08:10 Hct 29.4 % (35.4-49) L 02/19/19 08:10 MCV 82.3 fl (80-96) 02/19/19 08:10 MCHC 33.3 g/dl (32.0-35.9) 02/19/19 08:10 RDW 16.1 % (11.9-15.9) H 02/19/19 08:10 Plt Count 296 K/MM3 (134-434) 02/19/19 08:10 Sodium 139 mmol/L (136-145) 02/19/19 08:10 Potassium 5.0 mmol/L (3.5-5.1) 02/19/19 08:10 Chloride 104 mmol/L (98-107) 02/19/19 08:10 Carbon Dioxide 30 mmol/L (21-32) 02/19/19 08:10 Anion Gap 5 MMOL/L (8-16) L 02/19/19 08:10 BUN 14.3 mg/dL (7-18) 02/19/19 08:10 Creatinine 1.2 mg/dL (0.55-1.3) 02/19/19 08:10 Random Glucose 161 mg/dL (74-106) H 02/19/19 08:10 Calcium 8.6 mg/dL (8.5-10.1) 02/19/19 08:10 Blood Type A POSITIVE 02/18/19 08:47 Antibody Screen Negative 02/17/19 14:30 INR 1.18 (0.83-1.09) H 02/17/19 14:21 History reviewed and patient examined. History of PAD with prior interventions. Currently distal arterial flow appears adequate for wound healing. I will follow patient in my office.
[2019-02-18] MEDS ORDERED: VANCOMYCIN 1 GRAM (PRE-DOCKED) 1,000 MG/250 ML BAG IVPB SCH (16:00)
--- NOTE | 2019-02-18 16:52 | PN ---
Teaching Attending Note Name of Resident: Betty Millan ATTENDING PHYSICIAN STATEMENT I saw and evaluated the patient. I reviewed the resident's note and discussed the case with the resident. I agree with the resident's findings and plan as documented. SUBJECTIVE: Seen and examined at bedside. Feels great, no complaints. OBJECTIVE: Vital Signs Period Temp Pulse Resp BP Sys/Dominguez Pulse Ox Last 24 Hr 97.6 F-98.2 F 82-106 16-22 124-145/75-86 98-100 PHYSICAL EXAM: General: NAD CVS: s1s2, rrr Abdomen: soft, ntnd Lungs: CTA b/l unlabored Ext: left foot lateral ulcer 5th metatarsal with purulent drainage, trace edema , 2+ DPP Current Medications Generic Name Dose Route Start Last Admin Trade Name Freq PRN Reason Stop Dose Admin Acetaminophen 650 mg 02/17/19 14:21 02/18/19 12:09 Tylenol - PO 650 mg Q4H PRN Administration PAIN OR FEVER Aspirin 81 mg 02/18/19 10:00 02/18/19 11:47 Asa - PO Not Given DAILY HERON Atorvastatin Calcium 40 mg 02/17/19 22:00 02/17/19 23:14 Lipitor - PO 40 mg HS HERON Administration Carvedilol 6.25 mg 02/18/19 10:00 Coreg - PO DAILY [facility] Clopidogrel Bisulfate 75 mg 02/18/19 10:00 02/18/19 11:48 Plavix - PO Not Given DAILY HERON Heparin Sodium (Porcine) 5,000 unit 02/17/19 22:00 02/18/19 14:04 Heparin - SQ Not Given TID HERON Sodium Chloride 1,000 mls @ 100 mls/hr 02/18/19 08:30 02/18/19 08:48 Normal Saline - IV 100 mls/hr ASDIR HERON Administration Metronidazole 500 mg in 100 mls @ 100 mls/hr 02/18/19 11:45 02/18/19 11:48 Flagyl 500mg Premixed Ivpb - IVPB 100 mls/hr Q8H-IV HERON Administration Vancomycin HCl 1,000 mg in 250 mls @ 166.667 mls/hr 02/18/19 12:00 02/18/19 15:03 Vancomycin (Pre-Docked) IVPB 166.667 mls/hr Q12H HERON Administration Protocol Cefepime HCl 1 gm/ Dextrose 100 mls @ 200 mls/hr 02/18/19 12:00 02/18/19 11: 55 IVPB Not Given Q8H-IV [facility] Protocol Insulin Aspart 1 vial 02/17/19 16:30 02/18/19 14:49 Novolog Vial Sliding Scale - SQ Not Given ACHS [facility] Protocol Microbiology 02/17/19 14:00 Blood Culture - Preliminary Blood - Peripheral Venous NO GROWTH OBTAINED AFTER 24 HOURS, INCUBATION TO CONTINUE FOR 4 DAYS. 02/17/19 14:21 Blood Culture - Preliminary Blood - Peripheral Venous NO GROWTH OBTAINED AFTER 24 HOURS, INCUBATION TO CONTINUE FOR 4 DAYS. Laboratory Results - last 24 hr 02/17/19 02/17/19 02/17/19 14:30 17:26 22:11 WBC RBC Hgb Hct MCV MCH MCHC RDW Plt Count MPV Absolute Neuts (auto) Neutrophils % Lymphocytes % Monocytes % Eosinophils % Basophils % Nucleated RBC % ESR Sodium Potassium Chloride Carbon Dioxide Anion Gap BUN Creatinine Est GFR (CKD-EPI)AfAm Est GFR (CKD-EPI)NonAf POC Glucometer 161 131 Random Glucose Calcium Phosphorus Magnesium Total Bilirubin AST ALT Alkaline Phosphatase C-Reactive Protein Total Protein Albumin Urine Color Urine Appearance Urine pH Ur Specific [place] Urine Protein Urine Glucose (UA) Urine Ketones Urine Blood Urine Nitrite Urine Bilirubin Urine Urobilinogen Ur Leukocyte Esterase Ur Random Sodium Ur Random Potassium Ur Random Chloride Blood Type A POSITIVE Antibody Screen Negative 02/18/19 02/18/19 02/18/19 06:06 08:47 08:47 WBC 7.5 RBC 3.66 L Hgb 9.8 L Hct 30.1 L MCV 82.3 MCH 26.9 MCHC 32.7 RDW 15.8 Plt Count 316 MPV 8.9 Absolute Neuts (auto) 5.8 Neutrophils % 77.4 Lymphocytes % 9.5 D Monocytes % 9.6 Eosinophils % 2.9 D Basophils % 0.6 Nucleated RBC % 0 ESR Sodium 140 Potassium 4.4 Chloride 107 Carbon Dioxide 29 Anion Gap 4 L BUN 16.8 Creatinine 1.2 Est GFR (CKD-EPI)AfAm 76.79 Est GFR (CKD-EPI)NonAf 66.26 POC Glucometer 89 Random Glucose 81 Calcium 8.7 Phosphorus 3.2 Magnesium 2.2 Total Bilirubin 0.2 AST 9 L ALT 12 L Alkaline Phosphatase 60 C-Reactive Protein Total Protein 7.0 Albumin 2.6 L Urine Color Urine Appearance Urine pH Ur Specific [place] Urine Protein Urine Glucose (UA) Urine Ketones Urine Blood Urine Nitrite Urine Bilirubin Urine Urobilinogen Ur Leukocyte Esterase Ur Random Sodium Ur Random Potassium Ur Random Chloride Blood Type Antibody Screen 02/18/19 02/18/19 02/18/19 08:47 08:47 09:52 WBC RBC Hgb Hct MCV MCH MCHC RDW Plt Count MPV Absolute Neuts (auto) Neutrophils % Lymphocytes % Monocytes % Eosinophils % Basophils % Nucleated RBC % ESR 108 H Sodium Potassium Chloride Carbon Dioxide Anion Gap BUN Creatinine Est GFR (CKD-EPI)AfAm Est GFR (CKD-EPI)NonAf POC Glucometer Random Glucose Calcium Phosphorus Magnesium Total Bilirubin AST ALT Alkaline Phosphatase C-Reactive Protein 9.7 H Total Protein Albumin Urine Color Urine Appearance Urine pH Ur Specific [place] Urine Protein Urine Glucose (UA) Urine Ketones Urine Blood Urine Nitrite Urine Bilirubin Urine Urobilinogen Ur Leukocyte Esterase Ur Random Sodium 144 Ur Random Potassium 64.0 Ur Random Chloride 191 Blood Type Antibody Screen 02/18/19 09:52 WBC RBC Hgb Hct MCV MCH MCHC RDW Plt Count MPV Absolute Neuts (auto) Neutrophils % Lymphocytes % Monocytes % Eosinophils % Basophils % Nucleated RBC % ESR Sodium Potassium Chloride Carbon Dioxide Anion Gap BUN Creatinine Est GFR (CKD-EPI)AfAm Est GFR (CKD-EPI)NonAf POC Glucometer Random Glucose Calcium Phosphorus Magnesium Total Bilirubin AST ALT Alkaline Phosphatase C-Reactive Protein Total Protein Albumin Urine Color Yellow Urine Appearance Clear Urine pH 5.5 Ur Specific [place] 1.023 Urine Protein Negative Urine Glucose (UA) Negative Urine Ketones Negative Urine Blood Negative Urine Nitrite Negative Urine Bilirubin Negative Urine Urobilinogen 0.2 Ur Leukocyte Esterase Negative Ur Random Sodium Ur Random Potassium Ur Random Chloride Blood Type Antibody Screen IMAGING REPORTS REVIEWED ASSESSMENT: Osteomyelitis left 5th metatarsal DM2 PVD MARIEL HTN PLAN: MRI with evidence of osteomyelitis vascular and podiatry on board plan for amputation today IV antibiotics follow cultures pain control resume antiplatelets post-op monitor blood sugars, cw current regimen cw statin gentle IVF, monitor renal function and hold aceI
--- NOTE | 2019-02-18 17:52 | CONSULT ---
Consult - text type - Consultation Consultation Note: 58 y/o diabetic male seen in the preop area with left foot gas gangrene. Had been discussed terry him procedure by Dr. Santoyo prior. Patient in agreement for need of left 5th rayamputation. NPO confirmed. Consent in chart. To the OR tonight. Will follow.
[2019-02-18] MEDS ORDERED: LIDOCAINE HCL 2% (20ML MULTI-DOSE VIAL) NR ONE (17:58)
[2019-02-18] MEDS ORDERED: CEFEPIME HCL/D5W 1 GM/50 ML BAG IVPB SCH (18:00)
[2019-02-18] MEDS ORDERED: MIDAZOLAM HCL 2 MG/2 ML SINGLE DOSE VIAL ONE ×2 (18:02→18:24)
[2019-02-18] MEDS ORDERED: PROPOFOL 20 ML ONE (18:15)
[2019-02-18] MEDS ORDERED: LIDOCAINE HCL 2% (50ML VIAL) INF ONE (18:15)
[2019-02-18] MEDS ORDERED: LACTATED RINGERS SOLUTION 1,000 ML IV SCH (18:30)
[2019-02-18] MEDS ORDERED: METOPROLOL TARTRATE 5 MG/5 ML VIAL ONE (18:39)
--- NOTE | 2019-02-18 18:54 | OP ---
Operative Note - Note: Operative Date: 02/18/19 Pre-Operative Diagnosis: Left foot gas gangrene Operation: Left foot 5th ray amputation; sharkbite incision. Findings: see dictation Post-Operative Diagnosis: Same as Pre-op Surgeon: Solomon Silva Anesthesia: Local, MAC Specimens Removed: 5th digit - pathology. mt head micro. MT proximal margin - pathology Estimated Blood Loss (mls): 10 Operative Report Dictated: No
[2019-02-18] MEDS ORDERED: SODIUM CHLORIDE 0.45% 1,000 ML IV SCH (19:45)
--- NOTE | 2019-02-18 20:17 | OP ---
DATE OF OPERATION: 02/18/2019 PREOPERATIVE DIAGNOSIS: Left foot fifth metatarsal gas gangrene. POSTOPERATIVE DIAGNOSIS: Left foot fifth metatarsal gas gangrene. PROCEDURE PERFORMED: Left foot fifth ray resection with sharp bite incision. ANESTHESIA: Local with MAC. SURGEON: Solomon Silva DPM WASTE MACHINE OPERATOR: None INDICATION: Patient is a 58-year-old male with the above mentioned diagnosis. Patient exhausted all forms of conservative treatment and requires surgical intervention for the conditions listed above. After careful explanation of the risks, benefits, and complications for the proposed procedure, the patient signed the consent form. All questions and concerns were addressed at this time prior to taking patient to the OR. N.p.o. status was verified. Preoperative antibiotics had been given on the floor. DESCRIPTION OF PROCEDURE: The patient was brought to the operating room and placed on the operating table in the supine position. No pneumatic ankle tourniquet was utilized for this procedure given diminished blood flow already. Following IV sedation, a local injection of 13 mL of 2% lidocaine plain was injected into the patient's left foot in local block type fashion without complications. Following local anesthetic, the left foot was prepped and draped in normal sterile manner and the procedure began. Procedure number 1: Left foot 5th ray resection. At this time, attention was directed to the dorsal lateral aspect of the patient's left foot where there was noted to be a large dorsal lateral abscess with a large roughly 2 cm x 2 cm necrotic fibrotic ulceration on the lateral 5th metatarsophalangeal head that was directly down to bone. I utilized a number 15 blade, and incision was started proximal on the 5th metatarsal and then carried around until it went to the 4th interspace around the 5th digit in a circumferential pattern and then carried plantar encompassing the large lateral ulceration, and then circled back to the proximal incision. This incision was then carried deep down low on the 5th metatarsophalangeal joint exposing the head of the 5th metatarsal. At this time, the 5th digit was resected and disarticulated and passed off the operating field without complications. Following this, the 5th metatarsal head and shaft was freed from all soft tissue, and the metatarsal head was resected and passed off operative field, and following this a proximal margin of bone was resected and passed off the operative field. It should be noted that the 5th digit was to be sent to pathology, and the proximal bone for proximal margin as well as metatarsal head is sent to microbiology, and a wound culture was obtained. Following this, the wound was flushed copiously with copious amounts of normal sterile saline mixed with bacitracin without complication. The wound was noted to have a minimal amount of bleeding, and the fibrous tissue was all clear following the procedure. The wound was left open. The dorsal area where the gas was located at was packed with iodoform packing, and the wound was then dressed with a wet to dry dry sterile dressing. Postoperative condition, the patient tolerated anesthesia and procedure well and transferred to recovery room with vital signs stable and neurovascular status intact to left foot. The patient will be followed up on the floor . GAY DUBON/[id number]
[2019-02-18] MEDS ORDERED: ACETAMINOPHEN 1000 MG/100 ML VIAL (NON FORMULARY) IVPB ONE (22:47)
[2019-02-18] MEDS: ATORVASTATIN CA 40 MG TABLET (FP) PO SCH (23:00)
[2019-02-19] MEDS: VANCOMYCIN 1 GRAM (PRE-DOCKED) 1,000 MG/250 ML BAG IVPB SCH ×3 (01:36→23:54)
[2019-02-19] MEDS ORDERED: CEFEPIME HCL 1 GM VIAL (RESTRICTED TO ID) ONE ×3 (04:40→18:24)
[2019-02-19] MEDS: CEFEPIME 1 GM in DEXTROSE 5%-WATER 100 ML IVPB SCH ×4 (04:48→20:19)
[2019-02-19] MEDS: INSULIN SLIDING SCALE (NOVOLOG) 1 VIAL SQ SCH ×4 (06:49→21:55)
[2019-02-19] MEDS: HEPARIN NA (PORCINE) 5,000 UNITS/ML 1ML VIAL SQ SCH ×3 (07:43→21:44)
[2019-02-19] MEDS ORDERED: LACTATED RINGERS SOLUTION 1,000 ML IV SCH (08:10)
--- NOTE | 2019-02-19 08:36 | PN ---
Progress Note (short form) - Note Progress Note: Anesthesiology Post-op POD#1 s/p left 5th toe amputation with TIVA. Pt. is awake and alert, comfortable and has no complaints. VSS. 58 y.o. man with stable post-op course. Continue management as per primary team.
[2019-02-19 08:54] LABS: BASO % 0.3 % (0-2.0); EOS % 1.6 % (0-4.5); HEMATOCRIT 29.4 % (35.4-49); HEMOGLOBIN 9.8 GM/dL (11.7-16.9); LYMPH % 5.7 % (8-40); MCH 27.4 pg (25.7-33.7); MCHC 33.3 g/dl (32.0-35.9); MEAN CELL VOLUME 82.3 fl (80-96); MEAN PLT VOLUME 9.1 fl (7.5-11.1); MONO % 8.8 % (3.8-10.2); NEUT % 83.6 % (42.8-82.8); PLATELET COUNT 296 K/MM3 (134-434); RBC 3.57 M/mm3 (4.00-5.60); RDW 16.1 % (11.9-15.9); WHITE BLOOD COUNT 9.8 K/mm3 (4.0-10.0)
[2019-02-19 09:20] LABS: ALBUMIN 2.6 g/dl (3.4-5.0); BILIRUBIN,TOTAL 0.3 mg/dL (0.2-1); BLOOD UREA NITROGEN 14.3 mg/dL (7-18); CALCIUM 8.6 mg/dL (8.5-10.1); CREATININE 1.2 mg/dL (0.55-1.3); TOT PROT 6.6 g/dl (6.4-8.2)
[2019-02-19] MEDS ORDERED: CARVEDILOL 6.25 MG TABLET (FP) PO SCH (10:00)
--- NOTE | 2019-02-19 10:32 | PN ---
Progress Note (short form) - Note Progress Note: 58 y/o man s/p left 5th ray amp POD 1 Off floors for kidney ultra sound nursing orders placed for wound care today Labs wnl and Afebrile overnight; stable Per nursing all cultures obtained in the OR were placed in formalin and sent to path Will speak to Dr. Ordaz; will likely need 6 weeks Iv abx due to severity of the infection and softness of bone during surgery and can base on woudn culture. Will follow.
[2019-02-19] MEDS: CARVEDILOL 6.25 MG TABLET (FP) PO SCH ×3 (11:09→21:55)
[2019-02-19] MEDS: ASPIRIN 81 MG CHEWABLE TABLETS PO SCH ×2 (11:09→11:25)
[2019-02-19] MEDS: CLOPIDOGREL BISULFATE 75 MG TABLET (FP) PO SCH ×2 (11:10→11:25)
[2019-02-19] MEDS ORDERED: DEXTROSE 5%-WATER 100 ML IVPB ONE ×2 (11:14→18:24)
[2019-02-19] MEDS ORDERED: INSULIN (NOVOLOG) ASPART 100 UNITS/ML 10ML VIAL ONE ×2 (11:41→11:47)
--- NOTE | 2019-02-19 16:07 | PN ---
Physical Exam: SUBJECTIVE: Patient seen and examined. He reports intermittent pain 2/10 and has not needed analgesics since last night. He reports some abdominal pain that is associated with bowel movements and is not new for him. He denies fever, chills, chest pain, shortness of breath, and n/v. OBJECTIVE: Vital Signs Period Temp Pulse Resp BP Sys/Dominguez Pulse Ox Last 24 Hr 97.6 F-99.1 F 71-109 14-20 105-151/66-95 99-100 GENERAL: The patient is awake, alert, and fully oriented, in no acute distress. HEAD: Normal with no signs of trauma. EYES: PERRL, extraocular movements intact, sclera anicteric, conjunctiva clear. No ptosis. ENT: Ears normal, nares patent, moist mucous membranes. NECK: Trachea midline, full range of motion, supple. LUNGS: Breath sounds equal, clear to auscultation bilaterally, no wheezes, no crackles, no accessory muscle use. HEART: Regular rate and rhythm, S1, S2 without murmur, rub or gallop. ABDOMEN: Soft, nontender, nondistended, normoactive bowel sounds EXTREMITIES: 2+ pulses, warm, well-perfused, no edema. Left foot is bandaged. No erythema or tenderness of leg. NEUROLOGICAL: Cranial nerves II through XII grossly intact. Normal speech, gait not observed. PSYCH: Normal mood, normal affect. SKIN: Warm, dry, normal turgor, no rashes or lesions noted Laboratory Results - last 24 hr 02/17/19 02/18/19 02/18/19 14:30 08:47 17:12 WBC RBC Hgb Hct MCV MCH MCHC RDW Plt Count MPV Absolute Neuts (auto) Neutrophils % Lymphocytes % Monocytes % Eosinophils % Basophils % Nucleated RBC % Sodium Potassium Chloride Carbon Dioxide Anion Gap BUN Creatinine Est GFR (CKD-EPI)AfAm Est GFR (CKD-EPI)NonAf POC Glucometer 96 Random Glucose Calcium Total Bilirubin AST ALT Alkaline Phosphatase Total Protein Albumin Blood Type A POSITIVE A POSITIVE Antibody Screen Negative 02/18/19 02/18/19 02/19/19 19:34 23:06 06:48 WBC RBC Hgb Hct MCV MCH MCHC RDW Plt Count MPV Absolute Neuts (auto) Neutrophils % Lymphocytes % Monocytes % Eosinophils % Basophils % Nucleated RBC % Sodium Potassium Chloride Carbon Dioxide Anion Gap BUN Creatinine Est GFR (CKD-EPI)AfAm Est GFR (CKD-EPI)NonAf POC Glucometer 86 264 138 Random Glucose Calcium Total Bilirubin AST ALT Alkaline Phosphatase Total Protein Albumin Blood Type Antibody Screen 02/19/19 02/19/19 08:10 08:10 WBC 9.8 RBC 3.57 L Hgb 9.8 L Hct 29.4 L MCV 82.3 MCH 27.4 MCHC 33.3 RDW 16.1 H Plt Count 296 MPV 9.1 Absolute Neuts (auto) 8.2 H Neutrophils % 83.6 H Lymphocytes % 5.7 L D Monocytes % 8.8 Eosinophils % 1.6 Basophils % 0.3 Nucleated RBC % 0 Sodium 139 Potassium 5.0 Chloride 104 Carbon Dioxide 30 Anion Gap 5 L BUN 14.3 Creatinine 1.2 Est GFR (CKD-EPI)AfAm 76.79 Est GFR (CKD-EPI)NonAf 66.26 POC Glucometer Random Glucose 161 H Calcium 8.6 Total Bilirubin 0.3 AST 7 L ALT 10 L Alkaline Phosphatase 56 Total Protein 6.6 Albumin 2.6 L Blood Type Antibody Screen Active Medications Generic Name Dose Route Start Last Admin Trade Name Freq PRN Reason Stop Dose Admin Acetaminophen 650 mg 02/19/19 08:10 Tylenol - PO Q4H PRN PAIN OR FEVER Aspirin 81 mg 02/19/19 10:00 02/19/19 11:25 Asa - PO 81 mg DAILY [facility] Administration Atorvastatin Calcium 40 mg 02/19/19 22:00 Lipitor - PO HS [facility] Carvedilol 6.25 mg 02/19/19 10:00 02/19/19 11:25 Coreg - PO 6.25 mg BID [facility] Administration Clopidogrel Bisulfate 75 mg 02/19/19 10:00 02/19/19 11:25 Plavix - PO 75 mg DAILY [facility] Administration Fentanyl 50 mcg 02/19/19 08:10 Sublimaze Injection - IVPUSH [id number] PRN PAIN-PACU ORDER X 4 DOSES ONLY Heparin Sodium (Porcine) 5,000 unit 02/19/19 14:00 02/19/19 14:50 Heparin - SQ 5,000 unit TID [facility] Administration Cefepime HCl 1 gm/ Dextrose 100 mls @ 200 mls/hr 02/19/19 10:00 02/19/19 12: 43 IVPB 200 mls/hr Q8H-IV [facility] Administration Protocol Metronidazole 500 mg in 100 mls @ 100 mls/hr 02/19/19 10:00 02/19/19 11:26 Flagyl 500mg Premixed Ivpb - IVPB 100 mls/hr Q8H-IV [facility] Administration Vancomycin HCl 1,000 mg in 250 mls @ 166.667 mls/hr 02/19/19 12:00 02/19/19 13:27 Vancomycin (Pre-Docked) IVPB 166.667 mls/hr Q12H [facility] Administration Protocol Insulin Aspart 1 vial 02/19/19 11:00 02/19/19 11:50 Novolog Vial Sliding Scale - SQ 2 units ACHS [facility] Administration Protocol Insulin Detemir 35 units 02/19/19 22:00 Levemir Vial SQ HS [facility] ASSESSMENT/PLAN: Mr. Cobian is a 58 y/o male with DM, HTN, and venous insufficiency who presents from Dr. Santoyo's office for amputation of the left 5th digit. #left 5th toe osteomyelitis POD 1 s/p 5th toe amputation Pt tachycardic at presentation, afebrile, no leukocytosis. MRI positive for osteomyelitis. -wound culture pending -podiatry following- wound care -ID following- abx initiated -Vancomycin day 2 -Cefepime day 2 -Flagyl day 2 -Tylenol PRN pain #peripheral vascular disease s/p b/l revascularization this year -vascular following -ASA -Plavix -continue atorvastatin #MARIEL, resolved Cr 1.5-->1.2. Renal U/S normal. -nephrology following -avoid NSAIDS and nephrotoxic agents #DM A1C 8.0 two months ago. On Levemir 60U at home. -restart Levemir at 35U -SSI -BGM #HTN Normotensive not on meds -Coreg if pressure is >120/80 DVT Ppx heparin FEN PO fluids monitor Cr diabetic/sodium diet Visit type - Emergency Visit Emergency Visit: Yes ED Registration Date: 02/17/19 Care time: The patient presented to the Emergency Department on the above date and was hospitalized for further evaluation of their emergent condition. - New Patient This patient is new to me today: No - Critical Care Critical Care patient: No - Discharge Referral Referred to [facility] Med [facility] No ATTENDING PHYSICIAN STATEMENT I saw and evaluated the patient. I reviewed the resident's note and discussed the case with the resident. I agree with the resident's findings and plan as documented. SUBJECTIVE: OBJECTIVE: ASSESSMENT AND PLAN:
--- NOTE | 2019-02-19 16:54 | PN ---
Teaching Attending Note Name of Resident: Betty Millan ATTENDING PHYSICIAN STATEMENT I saw and evaluated the patient. I reviewed the resident's note and discussed the case with the resident. I agree with the resident's findings and plan as documented with exceptions below. SUBJECTIVE: Patient seen and examined. No new complaints, pain well controlled, doing better. OBJECTIVE: Vital Signs Period Temp Pulse Resp BP Sys/Dominguez Pulse Ox Last 24 Hr 97.6 F-99.1 F 71-109 14-20 105-151/66-95 99-100 Intake & Output 02/16/19 02/17/19 02/18/19 02/19/19 23:59 23:59 23:59 23:59 Intake Total 2050 1825 Output Total 1420 350 Balance 630 1475 Weight 190 lb 186 lb general: sitting in bed in no acute distress Abdomen:Soft, NT Chest: CTAB, no rales or wheezing Extremities: bilateral foot dressing, some swelling of visible left toes, no pain on movement, further exam deferred currently Home Medications Medication Instructions Recorded Aspirin [ASA -] 81 mg PO DAILY 12/23/18 Carvedilol [Coreg] 6.25 mg PO DAILY 12/23/18 Clopidogrel Bisulfate [Clopidogrel] 75 mg PO DAILY 12/23/18 Atorvastatin Ca [Lipitor] 40 mg PO HS tablet 12/29/18 Insulin (Levemir) [Levemir Vial] 10 units SQ AM units 12/29/18 Lisinopril [Prinivil] 5 mg PO DAILY tablet 12/29/18 Active Medications Acetaminophen (Tylenol -) 650 mg PO Q4H PRN PRN Reason: PAIN OR FEVER Aspirin (Asa -) 81 mg PO DAILY [facility] Last Admin: 02/19/19 11:25 Dose: 81 mg Atorvastatin Calcium (Lipitor -) 40 mg PO HS [facility] Carvedilol (Coreg -) 6.25 mg PO BID [facility] Last Admin: 02/19/19 11:25 Dose: 6.25 mg Clopidogrel Bisulfate (Plavix -) 75 mg PO DAILY [facility] Last Admin: 02/19/19 11:25 Dose: 75 mg Fentanyl (Sublimaze Injection -) 50 mcg IVPUSH [id number] PRN PRN Reason: PAIN-PACU ORDER X 4 DOSES ONLY Heparin Sodium (Porcine) (Heparin -) 5,000 unit SQ TID [facility] Last Admin: 02/19/19 14:50 Dose: 5,000 unit Cefepime HCl 1 gm/ Dextrose 100 mls @ 200 mls/hr IVPB Q8H-IV [facility]; Protocol Last Admin: 02/19/19 12:43 Dose: 200 mls/hr Metronidazole (Flagyl 500mg Premixed Ivpb -) 500 mg in 100 mls @ 100 mls/hr IVPB Q8H-IV [facility] Last Admin: 02/19/19 11:26 Dose: 100 mls/hr Vancomycin HCl (Vancomycin (Pre-Docked)) 1,000 mg in 250 mls @ 166.667 mls/hr IVPB Q12H [facility]; Protocol Last Admin: 02/19/19 13:27 Dose: 166.667 mls/hr Insulin Aspart (Novolog Vial Sliding Scale -) 1 vial SQ ACHS [facility]; Protocol Last Admin: 02/19/19 11:50 Dose: 2 units Insulin Detemir (Levemir Vial) 35 units SQ HS [facility] Laboratory Results - last 24 hr 02/18/19 02/18/19 02/18/19 08:47 17:12 19:34 WBC RBC Hgb Hct MCV MCH MCHC RDW Plt Count MPV Absolute Neuts (auto) Neutrophils % Lymphocytes % Monocytes % Eosinophils % Basophils % Nucleated RBC % Sodium Potassium Chloride Carbon Dioxide Anion Gap BUN Creatinine Est GFR (CKD-EPI)AfAm Est GFR (CKD-EPI)NonAf POC Glucometer 96 86 Random Glucose Calcium Total Bilirubin AST ALT Alkaline Phosphatase Total Protein Albumin Blood Type A POSITIVE 02/18/19 02/19/19 02/19/19 23:06 06:48 08:10 WBC 9.8 RBC 3.57 L Hgb 9.8 L Hct 29.4 L MCV 82.3 MCH 27.4 MCHC 33.3 RDW 16.1 H Plt Count 296 MPV 9.1 Absolute Neuts (auto) 8.2 H Neutrophils % 83.6 H Lymphocytes % 5.7 L D Monocytes % 8.8 Eosinophils % 1.6 Basophils % 0.3 Nucleated RBC % 0 Sodium Potassium Chloride Carbon Dioxide Anion Gap BUN Creatinine Est GFR (CKD-EPI)AfAm Est GFR (CKD-EPI)NonAf POC Glucometer 264 138 Random Glucose Calcium Total Bilirubin AST ALT Alkaline Phosphatase Total Protein Albumin Blood Type 02/19/19 08:10 WBC RBC Hgb Hct MCV MCH MCHC RDW Plt Count MPV Absolute Neuts (auto) Neutrophils % Lymphocytes % Monocytes % Eosinophils % Basophils % Nucleated RBC % Sodium 139 Potassium 5.0 Chloride 104 Carbon Dioxide 30 Anion Gap 5 L BUN 14.3 Creatinine 1.2 Est GFR (CKD-EPI)AfAm 76.79 Est GFR (CKD-EPI)NonAf 66.26 POC Glucometer Random Glucose 161 H Calcium 8.6 Total Bilirubin 0.3 AST 7 L ALT 10 L Alkaline Phosphatase 56 Total Protein 6.6 Albumin 2.6 L Blood Type Microbiology 02/17/19 14:00 Blood - Peripheral Venous Blood Culture - Preliminary NO GROWTH OBTAINED AFTER 48 HOURS, INCUBATION TO CONTINUE FOR 3 DAYS. 02/17/19 14:21 Blood - Peripheral Venous Blood Culture - Preliminary NO GROWTH OBTAINED AFTER 48 HOURS, INCUBATION TO CONTINUE FOR 3 DAYS. ASSESSMENT AND PLAN: 58 yom with PMHx off IDDM, poorly controlled, PVD s/p bilateral revascularization, amputation right great toe, Peripheral neuropathy, gastroparesis, sent with Left 5th toe osteomyelitis/gas gangrene s/p amputation -Left foot gas gangrene s/p left 5th ray amputation 02/18/2019 -MARIEL, suspect from hyperglycemia, hypovolumia -IDDM, poorly controlled -PVD s/p bilateral revascularization/amputation right great toe -Peripheral neuropathy -HTN Plan: Cefepime/vanco/flagyl, continue per ID Wound care per podiatry. Follow up cultures. Renal function improved. Renal US noted. Hold ACEi. Levemir, ISS. Reports a1c around 8. Continue ASA/Plavix/statin. DVTPPX heparin dispo pending clinical improvement. Discussed with patient and nursing.
--- NOTE | 2019-02-19 16:59 | PN ---
Progress Note, Physician History of Present Illness: Pt seen and examined at bedside. He is awake and alert. He denies shortness of breath. He had surgery yesterday. - Current Medication List Current Medications: Active Medications Acetaminophen (Tylenol -) 650 mg PO Q4H PRN PRN Reason: PAIN OR FEVER Aspirin (Asa -) 81 mg PO DAILY [facility] Last Admin: 02/19/19 11:25 Dose: 81 mg Atorvastatin Calcium (Lipitor -) 40 mg PO HS [facility] Carvedilol (Coreg -) 6.25 mg PO BID [facility] Last Admin: 02/19/19 11:25 Dose: 6.25 mg Clopidogrel Bisulfate (Plavix -) 75 mg PO DAILY [facility] Last Admin: 02/19/19 11:25 Dose: 75 mg Fentanyl (Sublimaze Injection -) 50 mcg IVPUSH [id number] PRN PRN Reason: PAIN-PACU ORDER X 4 DOSES ONLY Heparin Sodium (Porcine) (Heparin -) 5,000 unit SQ TID [facility] Last Admin: 02/19/19 14:50 Dose: 5,000 unit Cefepime HCl 1 gm/ Dextrose 100 mls @ 200 mls/hr IVPB Q8H-IV [facility]; Protocol Last Admin: 02/19/19 12:43 Dose: 200 mls/hr Metronidazole (Flagyl 500mg Premixed Ivpb -) 500 mg in 100 mls @ 100 mls/hr IVPB Q8H-IV [facility] Last Admin: 02/19/19 11:26 Dose: 100 mls/hr Vancomycin HCl (Vancomycin (Pre-Docked)) 1,000 mg in 250 mls @ 166.667 mls/hr IVPB Q12H [facility]; Protocol Last Admin: 02/19/19 13:27 Dose: 166.667 mls/hr Insulin Aspart (Novolog Vial Sliding Scale -) 1 vial SQ ACHS [facility]; Protocol Last Admin: 02/19/19 11:50 Dose: 2 units Insulin Detemir (Levemir Vial) 35 units SQ HS [facility] - Objective Vital Signs: Vital Signs Temperature 98.6 F 02/19/19 14:00 Pulse Rate 92 H 02/19/19 14:00 Respiratory Rate 20 02/19/19 14:00 Blood Pressure 132/80 02/19/19 14:00 O2 Sat by Pulse Oximetry (%) 100 02/18/19 23:00 Constitutional: Yes: Calm Eyes: Yes: Conjunctiva Clear HENT: Yes: Atraumatic Neck: Yes: Supple Cardiovascular: Yes: S1, S2 Respiratory: Yes: CTA Bilaterally Gastrointestinal: Yes: Soft Genitourinary: Yes: WNL Extremities: Yes: WNL Edema: No Wound/Incision: Yes: Dressing Dry and Intact Neurological: Yes: Oriented Psychiatric: Yes: Oriented Labs: CBC, BMP 02/19/19 08:10 02/19/19 08:10 INR, PTT INR 1.18 (0.83-1.09) H 02/17/19 14:21 Problem List - Problems (1) MARIEL (acute kidney injury) Code(s): N17.9 - ACUTE KIDNEY FAILURE, UNSPECIFIED (2) Diabetic foot ulcer Code(s): E11.621 - TYPE 2 DIABETES MELLITUS WITH FOOT ULCER; L97.509 - NON- PRESSURE CHRONIC ULCER OTH PRT UNSP FOOT W UNSP SEVERITY Qualifiers: Diabetic foot ulcer location: toe Diabetes mellitus type: type 2 Laterality: left Non-pressure ulcer stage: with muscle involvement without evidence of necrosis Qualified Code(s): E11.621 - Type 2 diabetes mellitus with foot ulcer; L97.525 - Non-pressure chronic ulcer of other part of left foot with muscle involvement without evidence of necrosis (3) Osteomyelitis Code(s): M86.9 - OSTEOMYELITIS, UNSPECIFIED Assessment/Plan Current Medications Generic Name Dose Route Start Last Admin Trade Name Freq PRN Reason Stop Dose Admin Acetaminophen 650 mg 02/19/19 08:10 Tylenol - PO Q4H PRN PAIN OR FEVER Aspirin 81 mg 02/19/19 10:00 02/19/19 11:25 Asa - PO 81 mg DAILY [facility] Administration Atorvastatin Calcium 40 mg 02/19/19 22:00 Lipitor - PO HS [facility] Carvedilol 6.25 mg 02/19/19 10:00 02/19/19 11:25 Coreg - PO 6.25 mg BID [facility] Administration Clopidogrel Bisulfate 75 mg 02/19/19 10:00 02/19/19 11:25 Plavix - PO 75 mg DAILY [facility] Administration Fentanyl 50 mcg 02/19/19 08:10 Sublimaze Injection - IVPUSH [id number] PRN PAIN-PACU ORDER X 4 DOSES ONLY Heparin Sodium (Porcine) 5,000 unit 02/19/19 14:00 02/19/19 14:50 Heparin - SQ 5,000 unit TID [facility] Administration Cefepime HCl 1 gm/ Dextrose 100 mls @ 200 mls/hr 02/19/19 10:00 02/19/19 12: 43 IVPB 200 mls/hr Q8H-IV [facility] Administration Protocol Metronidazole 500 mg in 100 mls @ 100 mls/hr 02/19/19 10:00 02/19/19 11:26 Flagyl 500mg Premixed Ivpb - IVPB 100 mls/hr Q8H-IV [facility] Administration Vancomycin HCl 1,000 mg in 250 mls @ 166.667 mls/hr 02/19/19 12:00 02/19/19 13:27 Vancomycin (Pre-Docked) IVPB 166.667 mls/hr Q12H [facility] Administration Protocol Insulin Aspart 1 vial 02/19/19 11:00 02/19/19 11:50 Novolog Vial Sliding Scale - SQ 2 units ACHS [facility] Administration Protocol Insulin Detemir 35 units 02/19/19 22:00 Levemir Vial SQ HS [facility] Impression 1. MARIEL 2. DM 3. osteo 4. hx CHF 5. venous insufficiency Plan - repeat labs in am - pt tolerating diet - renal function improving - wound care - renal ultrasound report reviewed - avoid nsaids and nephrotoxins
[2019-02-19] MEDS: ATORVASTATIN CA 40 MG TABLET (FP) PO SCH (21:43)
[2019-02-19] MEDS: INSULIN (LEVEMIR) 100 UNITS/ML UNITS SQ SCH (21:49)
[2019-02-19] MEDS ORDERED: ACETAMINOPHEN 1000 MG/100 ML VIAL (NON FORMULARY) IVPB ONE (22:13)
[2019-02-20] MEDS: CEFEPIME 1 GM in DEXTROSE 5%-WATER 100 ML IVPB SCH ×3 (04:01→17:09)
[2019-02-20] MEDS: HEPARIN NA (PORCINE) 5,000 UNITS/ML 1ML VIAL SQ SCH ×3 (06:04→22:09)
[2019-02-20] MEDS: INSULIN SLIDING SCALE (NOVOLOG) 1 VIAL SQ SCH ×4 (06:06→22:09)
--- NOTE | 2019-02-20 08:04 | PN ---
Progress Note (short form) - Note Progress Note: 58 y/o male POD 2 from left 5th ray resection. Up in bed. No new complaints. Denies any f/c/n/v/sob. O: Left foot incision with sharkbite appearance with granular bleeding base, 5th MT bone exposed, no active purulent drainage noted, no malodor, no streaking, mild erythema dorsally from surgery A: POD 2 left 5th ray resection P: Evaluated and reviewed New wound culture obtained given that all cultures from OR were sent to pathology . F/u cultures surgical site stable; will need transition to wound VAC can be done as outpatient patient was requesting rehab will need wound care f/u once d/c.
[2019-02-20 09:26] LABS: BLOOD UREA NITROGEN 13.6 mg/dL (7-18); CALCIUM 8.5 mg/dL (8.5-10.1); CREATININE 1.1 mg/dL (0.55-1.3); POTASSIUM 4.3 mmol/L (3.5-5.1)
[2019-02-20] MEDS ORDERED: DEXTROSE 5%-WATER 100 ML IVPB ONE ×2 (09:36→16:49)
[2019-02-20] MEDS ORDERED: CEFEPIME HCL 1 GM VIAL (RESTRICTED TO ID) ONE ×2 (09:36→16:49)
[2019-02-20] MEDS: CARVEDILOL 6.25 MG TABLET (FP) PO SCH ×2 (11:13→22:01)
[2019-02-20] MEDS: CLOPIDOGREL BISULFATE 75 MG TABLET (FP) PO SCH (11:13)
[2019-02-20] MEDS: ASPIRIN 81 MG CHEWABLE TABLETS PO SCH (11:14)
[2019-02-20] MEDS: VANCOMYCIN 1 GRAM (PRE-DOCKED) 1,000 MG/250 ML BAG IVPB SCH (12:59)
--- NOTE | 2019-02-20 14:04 | PN ---
Teaching Attending Note Name of Resident: Betty Millan ATTENDING PHYSICIAN STATEMENT I saw and evaluated the patient. I reviewed the resident's note and discussed the case with the resident. I agree with the resident's findings and plan as documented with exceptions below. SUBJECTIVE: Patient seen and examined. no new complaints, tolerating diet well. OBJECTIVE: Vital Signs Period Temp Pulse Resp BP Sys/Dominguez Pulse Ox Last 24 Hr 97.6 F-98.6 F 74-95 18-20 116-140/65-78 98 Intake & Output 02/17/19 02/18/19 02/19/19 02/20/19 23:59 23:59 23:59 23:59 Intake Total 2050 3225 920 Output Total 1420 1450 500 Balance 630 1775 420 Weight 190 lb 186 lb 185 lb 6.4 oz General: sitting in bed in no acute distress Extremities: Left 5th toe amputatio, wound area with large 5x4 cm area with dried blood on base, no active bleeding, surrounding swelling/erythema/ hyperpigmentation Chest: CTAB, no rales or wheezing Abdomen:Soft, NT, ND, pos bowel sounds Home Medications Medication Instructions Recorded Aspirin [ASA -] 81 mg PO DAILY 12/23/18 Carvedilol [Coreg] 6.25 mg PO DAILY 12/23/18 Clopidogrel Bisulfate [Clopidogrel] 75 mg PO DAILY 12/23/18 Atorvastatin Ca [Lipitor] 40 mg PO HS tablet 12/29/18 Insulin (Levemir) [Levemir Vial] 10 units SQ AM units 12/29/18 Lisinopril [Prinivil] 5 mg PO DAILY tablet 12/29/18 Active Medications Acetaminophen (Tylenol -) 650 mg PO Q4H PRN PRN Reason: PAIN OR FEVER Aspirin (Asa -) 81 mg PO DAILY [facility] Last Admin: 02/20/19 11:14 Dose: 81 mg Atorvastatin Calcium (Lipitor -) 40 mg PO HS [facility] Last Admin: 02/19/19 21:43 Dose: 40 mg Carvedilol (Coreg -) 6.25 mg PO BID [facility] Last Admin: 02/20/19 11:13 Dose: 6.25 mg Clopidogrel Bisulfate (Plavix -) 75 mg PO DAILY [facility] Last Admin: 02/20/19 11:13 Dose: 75 mg Fentanyl (Sublimaze Injection -) 50 mcg IVPUSH [id number] PRN PRN Reason: PAIN-PACU ORDER X 4 DOSES ONLY Heparin Sodium (Porcine) (Heparin -) 5,000 unit SQ TID [facility] Last Admin: 02/20/19 06:04 Dose: 5,000 unit Cefepime HCl 1 gm/ Dextrose 100 mls @ 200 mls/hr IVPB Q8H-IV [facility]; Protocol Last Admin: 02/20/19 11:14 Dose: 200 mls/hr Metronidazole (Flagyl 500mg Premixed Ivpb -) 500 mg in 100 mls @ 100 mls/hr IVPB Q8H-IV [facility] Last Admin: 02/20/19 11:14 Dose: 100 mls/hr Vancomycin HCl (Vancomycin (Pre-Docked)) 1,000 mg in 250 mls @ 166.667 mls/hr IVPB Q12H [facility]; Protocol Last Admin: 02/20/19 12:59 Dose: 166.667 mls/hr Insulin Aspart (Novolog Vial Sliding Scale -) 1 vial SQ ACHS [facility]; Protocol Last Admin: 02/20/19 11:30 Dose: Not Given Insulin Detemir (Levemir Vial) 35 units SQ HS [facility] Last Admin: 02/19/19 21:49 Dose: 35 units Laboratory Results - last 24 hr 02/19/19 02/19/19 02/19/19 11:33 17:05 21:06 Sodium Potassium Chloride Carbon Dioxide Anion Gap BUN Creatinine Est GFR (CKD-EPI)AfAm Est GFR (CKD-EPI)NonAf POC Glucometer 172 236 196 Random Glucose Hemoglobin A1c % Calcium 02/20/19 02/20/19 02/20/19 05:55 07:28 07:28 Sodium 140 Potassium 4.3 Chloride 106 Carbon Dioxide 30 Anion Gap 5 L BUN 13.6 Creatinine 1.1 Est GFR (CKD-EPI)AfAm 85.31 Est GFR (CKD-EPI)NonAf 73.61 POC Glucometer 140 Random Glucose 119 H Hemoglobin A1c % 8.4 H Calcium 8.5 02/20/19 11:29 Sodium Potassium Chloride Carbon Dioxide Anion Gap BUN Creatinine Est GFR (CKD-EPI)AfAm Est GFR (CKD-EPI)NonAf POC Glucometer 109 Random Glucose Hemoglobin A1c % Calcium Microbiology 02/17/19 14:00 Blood - Peripheral Venous Blood Culture - Preliminary NO GROWTH OBTAINED AFTER 48 HOURS, INCUBATION TO CONTINUE FOR 3 DAYS. 02/17/19 14:21 Blood - Peripheral Venous Blood Culture - Preliminary NO GROWTH OBTAINED AFTER 48 HOURS, INCUBATION TO CONTINUE FOR 3 DAYS. ASSESSMENT AND PLAN: 58 yom with PMHx off IDDM, poorly controlled, PVD s/p bilateral revascularization, amputation right great toe, Peripheral neuropathy, gastroparesis, sent with Left 5th toe osteomyelitis/gas gangrene s/p amputation -Left foot gas gangrene s/p left 5th ray amputation 02/18/2019 -MARIEL, suspect from hyperglycemia, hypovolumia, resolved -IDDM, poorly controlled -PVD s/p bilateral revascularization/amputation right great toe -Peripheral neuropathy -HTN Plan: Cefepime/vanco/flagyl, continue per ID Wound care per podiatry. Follow up wound cx/surgical pathology results Anticpate fpc Abx, patient requests SNF, discuss with social work. Renal function improved. Renal US noted. resume ACEi in 24 hours if renal function stable. Levemir increased, ISS. A1c 8.4. Continue ASA/Plavix/statin. DVTPPX heparin dispo anticipate SNF early next week, with PICC/IV abx pending cultures/ID/ podiatry input and clinical course. Discussed with patient and nursing.
--- NOTE | 2019-02-20 15:05 | PN ---
Progress Note, Physician History of Present Illness: Pt seen and examined at bedside. He is awake and alert. He denies shortness of breath. He denies fevers or chills. - Current Medication List Current Medications: Active Medications Acetaminophen (Tylenol -) 650 mg PO Q4H PRN PRN Reason: PAIN OR FEVER Aspirin (Asa -) 81 mg PO DAILY COUNTS INCLUDE 234 BEDS AT THE [facility] Last Admin: 02/20/19 11:14 Dose: 81 mg Atorvastatin Calcium (Lipitor -) 40 mg PO HS COUNTS INCLUDE 234 BEDS AT THE [facility] Last Admin: 02/19/19 21:43 Dose: 40 mg Carvedilol (Coreg -) 6.25 mg PO BID [facility] Last Admin: 02/20/19 11:13 Dose: 6.25 mg Clopidogrel Bisulfate (Plavix -) 75 mg PO DAILY COUNTS INCLUDE 234 BEDS AT THE [facility] Last Admin: 02/20/19 11:13 Dose: 75 mg Fentanyl (Sublimaze Injection -) 50 mcg IVPUSH [id number] PRN PRN Reason: PAIN-PACU ORDER X 4 DOSES ONLY Heparin Sodium (Porcine) (Heparin -) 5,000 unit SQ TID COUNTS INCLUDE 234 BEDS AT THE [facility] Last Admin: 02/20/19 06:04 Dose: 5,000 unit Cefepime HCl 1 gm/ Dextrose 100 mls @ 200 mls/hr IVPB Q8H-IV [facility]; Protocol Last Admin: 02/20/19 11:14 Dose: 200 mls/hr Metronidazole (Flagyl 500mg Premixed Ivpb -) 500 mg in 100 mls @ 100 mls/hr IVPB Q8H-IV [facility] Last Admin: 02/20/19 11:14 Dose: 100 mls/hr Vancomycin HCl (Vancomycin (Pre-Docked)) 1,000 mg in 250 mls @ 166.667 mls/hr IVPB Q12H [facility]; Protocol Last Admin: 02/20/19 12:59 Dose: 166.667 mls/hr Insulin Aspart (Novolog Vial Sliding Scale -) 1 vial SQ ACHS COUNTS INCLUDE 234 BEDS AT THE [facility]; Protocol Last Admin: 02/20/19 11:30 Dose: Not Given Insulin Detemir (Levemir Vial) 35 units SQ HS COUNTS INCLUDE 234 BEDS AT THE [facility] Last Admin: 02/19/19 21:49 Dose: 35 units - Objective Vital Signs: Vital Signs Temperature 98.8 F 02/20/19 14:50 Pulse Rate 99 H 02/20/19 14:50 Respiratory Rate 18 02/20/19 14:50 Blood Pressure 153/86 02/20/19 14:50 O2 Sat by Pulse Oximetry (%) 98 02/19/19 21:00 Constitutional: Yes: Calm Eyes: Yes: Conjunctiva Clear HENT: Yes: Atraumatic Neck: Yes: Supple Cardiovascular: Yes: S1, S2 Respiratory: Yes: CTA Bilaterally Gastrointestinal: Yes: Normal Bowel Sounds, Soft Genitourinary: Yes: WNL Musculoskeletal: Yes: WNL Edema: No Neurological: Yes: Oriented Psychiatric: Yes: Oriented Labs: CBC, BMP 02/19/19 08:10 02/20/19 07:28 INR, PTT INR 1.18 (0.83-1.09) H 02/17/19 14:21 Problem List - Problems (1) MARIEL (acute kidney injury) Code(s): N17.9 - ACUTE KIDNEY FAILURE, UNSPECIFIED (2) Diabetic foot ulcer Code(s): E11.621 - TYPE 2 DIABETES MELLITUS WITH FOOT ULCER; L97.509 - NON- PRESSURE CHRONIC ULCER OTH PRT UNSP FOOT W UNSP SEVERITY Qualifiers: Diabetic foot ulcer location: toe Diabetes mellitus type: type 2 Laterality: left Non-pressure ulcer stage: with muscle involvement without evidence of necrosis Qualified Code(s): E11.621 - Type 2 diabetes mellitus with foot ulcer; L97.525 - Non-pressure chronic ulcer of other part of left foot with muscle involvement without evidence of necrosis (3) Osteomyelitis Code(s): M86.9 - OSTEOMYELITIS, UNSPECIFIED Assessment/Plan Current Medications Generic Name Dose Route Start Last Admin Trade Name Freq PRN Reason Stop Dose Admin Acetaminophen 650 mg 02/19/19 08:10 Tylenol - PO Q4H PRN PAIN OR FEVER Aspirin 81 mg 02/19/19 10:00 02/20/19 11:14 Asa - PO 81 mg DAILY [facility] Administration Atorvastatin Calcium 40 mg 02/19/19 22:00 02/19/19 21:43 Lipitor - PO 40 mg HS [facility] Administration Carvedilol 6.25 mg 02/19/19 10:00 02/20/19 11:13 Coreg - PO 6.25 mg BID [facility] Administration Clopidogrel Bisulfate 75 mg 02/19/19 10:00 02/20/19 11:13 Plavix - PO 75 mg DAILY [facility] Administration Fentanyl 50 mcg 02/19/19 08:10 Sublimaze Injection - IVPUSH [id number] PRN PAIN-PACU ORDER X 4 DOSES ONLY Heparin Sodium (Porcine) 5,000 unit 02/19/19 14:00 02/20/19 06:04 Heparin - SQ 5,000 unit TID [facility] Administration Cefepime HCl 1 gm/ Dextrose 100 mls @ 200 mls/hr 02/19/19 10:00 02/20/19 11: 14 IVPB 200 mls/hr Q8H-IV [facility] Administration Protocol Metronidazole 500 mg in 100 mls @ 100 mls/hr 02/19/19 10:00 02/20/19 11:14 Flagyl 500mg Premixed Ivpb - IVPB 100 mls/hr Q8H-IV [facility] Administration Vancomycin HCl 1,000 mg in 250 mls @ 166.667 mls/hr 02/19/19 12:00 02/20/19 12:59 Vancomycin (Pre-Docked) IVPB 166.667 mls/hr Q12H [facility] Administration Protocol Insulin Aspart 1 vial 02/19/19 11:00 02/20/19 11:30 Novolog Vial Sliding Scale - SQ Not Given ACHS [facility] Protocol Insulin Detemir 35 units 02/19/19 22:00 02/19/19 21:49 Levemir Vial SQ 35 units HS [facility] Administration Impression 1. MARIEL 2. DM 3. osteo 4. hx CHF 5. venous insufficiency Plan - renal function stabilizing - avoid nsaids - abx per primary team - will follow PRN - avoid nephrotoxins
--- NOTE | 2019-02-20 15:55 | PN ---
Progress Note (short form) - Note Progress Note: pod #2 s/p amputation fifth toe no complaints called the OP yesterday no cultures sent to micro- unfortunately all were placed in formalin wound culture sent by mr teacher today Vital Signs Period Temp Pulse Resp BP Sys/Dominguez Pulse Ox Last 24 Hr 97.6 F-98.8 F 74-99 18-20 116-153/65-86 98 dressing intact- done by mr teacher CBC, BMP 02/19/19 08:10 02/20/19 07:28 Microbiology 02/19/19 18:30 Foot - Left Gram Stain - Final 02/20/19 08:00 Foot - Left Gram Stain - Final 02/17/19 14:00 Blood - Peripheral Venous Blood Culture - Preliminary NO GROWTH OBTAINED AFTER 72 HOURS, INCUBATION TO CONTINUE FOR 2 DAYS. 02/17/19 14:21 Blood - Peripheral Venous Blood Culture - Preliminary NO GROWTH OBTAINED AFTER 72 HOURS, INCUBATION TO CONTINUE FOR 2 DAYS. Active Medications Acetaminophen (Tylenol -) 650 mg PO Q4H PRN PRN Reason: PAIN OR FEVER Aspirin (Asa -) 81 mg PO DAILY [facility] Last Admin: 02/20/19 11:14 Dose: 81 mg Atorvastatin Calcium (Lipitor -) 40 mg PO HS [facility] Last Admin: 02/19/19 21:43 Dose: 40 mg Carvedilol (Coreg -) 6.25 mg PO BID [facility] Last Admin: 02/20/19 11:13 Dose: 6.25 mg Clopidogrel Bisulfate (Plavix -) 75 mg PO DAILY [facility] Last Admin: 02/20/19 11:13 Dose: 75 mg Fentanyl (Sublimaze Injection -) 50 mcg IVPUSH [id number] PRN PRN Reason: PAIN-PACU ORDER X 4 DOSES ONLY Heparin Sodium (Porcine) (Heparin -) 5,000 unit SQ TID [facility] Last Admin: 02/20/19 15:27 Dose: 5,000 unit Cefepime HCl 1 gm/ Dextrose 100 mls @ 200 mls/hr IVPB Q8H-IV [facility]; Protocol Last Admin: 02/20/19 11:14 Dose: 200 mls/hr Metronidazole (Flagyl 500mg Premixed Ivpb -) 500 mg in 100 mls @ 100 mls/hr IVPB Q8H-IV [facility] Last Admin: 02/20/19 11:14 Dose: 100 mls/hr Vancomycin HCl (Vancomycin (Pre-Docked)) 1,000 mg in 250 mls @ 166.667 mls/hr IVPB Q12H [facility]; Protocol Last Admin: 02/20/19 12:59 Dose: 166.667 mls/hr Insulin Aspart (Novolog Vial Sliding Scale -) 1 vial SQ ACHS [facility]; Protocol Last Admin: 02/20/19 11:30 Dose: Not Given Insulin Detemir (Levemir Vial) 35 units SQ HS [facility] Last Admin: 02/19/19 21:49 Dose: 35 units a/p pod #2 s/p amputation of the fifth toe/ray amputation-f/u path and cultures poorly controlled DM PVD pen allergy mariel check vancomycin trough continue vanco/cefepime/flagyl Problem List - Problems (1) Diabetic foot ulcer Code(s): E11.621 - TYPE 2 DIABETES MELLITUS WITH FOOT ULCER; L97.509 - NON- PRESSURE CHRONIC ULCER OTH PRT UNSP FOOT W UNSP SEVERITY Qualifiers: Diabetic foot ulcer location: toe Diabetes mellitus type: type 2 Laterality: left Non-pressure ulcer stage: with muscle involvement without evidence of necrosis Qualified Code(s): E11.621 - Type 2 diabetes mellitus with foot ulcer; L97.525 - Non-pressure chronic ulcer of other part of left foot with muscle involvement without evidence of necrosis (2) Osteomyelitis Code(s): M86.9 - OSTEOMYELITIS, UNSPECIFIED (3) PVD (peripheral vascular disease) Code(s): I73.9 - PERIPHERAL VASCULAR DISEASE, UNSPECIFIED (4) MARIEL (acute kidney injury) Code(s): N17.9 - ACUTE KIDNEY FAILURE, UNSPECIFIED (5) Penicillin allergy Code(s): Z88.0 - ALLERGY STATUS TO PENICILLIN
--- NOTE | 2019-02-20 16:39 | PN ---
Physical Exam: SUBJECTIVE: Patient seen and examined. He reports being upset about the amputation. He denies pain in his foot. He also denies chest pain, shortness of breath, abdominal pain, nausea, vomiting, and calf tenderness. OBJECTIVE: Vital Signs Period Temp Pulse Resp BP Sys/Dominguez Pulse Ox Last 24 Hr 97.6 F-98.8 F 74-99 18-20 116-153/65-86 98-98 GENERAL: Awake, alert, and fully oriented, in no acute distress. HEAD: Normal with no signs of trauma. EYES: PERRL, extraocular movements intact ENT: Ears normal, nares patent, oropharynx clear without exudates, moist mucous membranes. NECK: Trachea midline, full range of motion, supple. LUNGS: Breath sounds equal, clear to auscultation bilaterally HEART: Regular rate and rhythm, no murmur ABDOMEN: Soft, nontender, nondistended, normoactive bowel sounds EXTREMITIES: 2+ pulses, warm, well-perfused, no edema. Left 5th digit amputation with open wound on distal and lateral aspects of foot with no drainage. NEUROLOGICAL: Normal speech PSYCH: Sad mood SKIN: Warm, dry, normal turgor, no rashes or lesions noted other than above Laboratory Results - last 24 hr 02/19/19 02/19/19 02/19/19 11:33 17:05 21:06 Sodium Potassium Chloride Carbon Dioxide Anion Gap BUN Creatinine Est GFR (CKD-EPI)AfAm Est GFR (CKD-EPI)NonAf POC Glucometer 172 236 196 Random Glucose Hemoglobin A1c % Calcium 02/20/19 02/20/19 02/20/19 05:55 07:28 07:28 Sodium 140 Potassium 4.3 Chloride 106 Carbon Dioxide 30 Anion Gap 5 L BUN 13.6 Creatinine 1.1 Est GFR (CKD-EPI)AfAm 85.31 Est GFR (CKD-EPI)NonAf 73.61 POC Glucometer 140 Random Glucose 119 H Hemoglobin A1c % 8.4 H Calcium 8.5 02/20/19 11:29 Sodium Potassium Chloride Carbon Dioxide Anion Gap BUN Creatinine Est GFR (CKD-EPI)AfAm Est GFR (CKD-EPI)NonAf POC Glucometer 109 Random Glucose Hemoglobin A1c % Calcium Active Medications Generic Name Dose Route Start Last Admin Trade Name Freq PRN Reason Stop Dose Admin Acetaminophen 650 mg 02/19/19 08:10 Tylenol - PO Q4H PRN PAIN OR FEVER Aspirin 81 mg 02/19/19 10:00 02/20/19 11:14 Asa - PO 81 mg DAILY [facility] Administration Atorvastatin Calcium 40 mg 02/19/19 22:00 02/19/19 21:43 Lipitor - PO 40 mg HS [facility] Administration Carvedilol 6.25 mg 02/19/19 10:00 02/20/19 11:13 Coreg - PO 6.25 mg BID [facility] Administration Clopidogrel Bisulfate 75 mg 02/19/19 10:00 02/20/19 11:13 Plavix - PO 75 mg DAILY [facility] Administration Fentanyl 50 mcg 02/19/19 08:10 Sublimaze Injection - IVPUSH [id number] PRN PAIN-PACU ORDER X 4 DOSES ONLY Heparin Sodium (Porcine) 5,000 unit 02/19/19 14:00 02/20/19 15:27 Heparin - SQ 5,000 unit TID [facility] Administration Cefepime HCl 1 gm/ Dextrose 100 mls @ 200 mls/hr 02/19/19 10:00 02/20/19 11: 14 IVPB 200 mls/hr Q8H-IV [facility] Administration Protocol Metronidazole 500 mg in 100 mls @ 100 mls/hr 02/19/19 10:00 02/20/19 11:14 Flagyl 500mg Premixed Ivpb - IVPB 100 mls/hr Q8H-IV [facility] Administration Vancomycin HCl 1,000 mg in 250 mls @ 166.667 mls/hr 02/19/19 12:00 02/20/19 12:59 Vancomycin (Pre-Docked) IVPB 166.667 mls/hr Q12H [facility] Administration Protocol Insulin Aspart 1 vial 02/19/19 11:00 02/20/19 11:30 Novolog Vial Sliding Scale - SQ Not Given [facility] Protocol Insulin Detemir 35 units 02/19/19 22:00 02/19/19 21:49 Levemir Vial SQ 35 units HS [facility] Administration ASSESSMENT/PLAN: Mr. Cobian is a 58 y/o male with DM, HTN, and venous insufficiency who presents from Dr. Santoyo's office for amputation of the left 5th digit. #left 5th toe osteomyelitis POD 2 s/p 5th toe amputation Pt tachycardic at presentation, afebrile, no leukocytosis. MRI positive for osteomyelitis. -wound culture prelim- Gram positive cocci -blood culture prelim- negative -podiatry following- wound care daily, wound vac at discharge -ID following- vanc trough -Vancomycin day 3 -Cefepime day 3 -Flagyl day 3 -Tylenol PRN pain #peripheral vascular disease s/p b/l revascularization this year -vascular following -ASA -Plavix -continue atorvastatin #MARIEL, resolved Cr 1.5-->1.2. Renal U/S normal. -nephrology following -avoid NSAIDS and nephrotoxic agents #DM A1C 8.4. On Levemir 60U at home. -Levemir 35U -SSI -BGM #HTN Initially held home Coreg -Coreg if pressure is >120/80 DVT Ppx heparin FEN PO fluids monitor Cr diabetic/sodium diet Dispo Pt requesting SNF, poss d/c early next week Visit type - Emergency Visit Emergency Visit: Yes ED Registration Date: 02/17/19 Care time: The patient presented to the Emergency Department on the above date and was hospitalized for further evaluation of their emergent condition. - New Patient This patient is new to me today: No - Critical Care Critical Care patient: No - Discharge Referral Referred to [facility] No ATTENDING PHYSICIAN STATEMENT I saw and evaluated the patient. I reviewed the resident's note and discussed the case with the resident. I agree with the resident's findings and plan as documented. SUBJECTIVE: OBJECTIVE: ASSESSMENT AND PLAN:
[2019-02-20] MEDS ORDERED: INSULIN (LEVEMIR) 100 UNITS/ML UNITS SQ ONE (18:37)
[2019-02-20] MEDS ORDERED: INSULIN (NOVOLOG) ASPART 100 UNITS/ML 10ML VIAL ONE (18:38)
[2019-02-20] MEDS ORDERED: PT OWN MED DRAWER 7, Y5N ONE (18:38)
[2019-02-20] MEDS: ATORVASTATIN CA 40 MG TABLET (FP) PO SCH (22:01)
[2019-02-20] MEDS: INSULIN (LEVEMIR) 100 UNITS/ML UNITS SQ SCH (22:03)
[2019-02-21] MEDS: VANCOMYCIN 1 GRAM (PRE-DOCKED) 1,000 MG/250 ML BAG IVPB SCH ×2 (00:12→15:47)
[2019-02-21] MEDS ORDERED: CEFEPIME HCL 1 GM VIAL (RESTRICTED TO ID) ONE ×3 (01:09→17:12)
[2019-02-21] MEDS ORDERED: DEXTROSE 5%-WATER 100 ML IVPB ONE ×3 (01:10→17:12)
[2019-02-21] MEDS: CEFEPIME 1 GM in DEXTROSE 5%-WATER 100 ML IVPB SCH ×3 (02:10→17:24)
[2019-02-21] MEDS: INSULIN SLIDING SCALE (NOVOLOG) 1 VIAL SQ SCH ×4 (06:02→22:01)
[2019-02-21] MEDS: HEPARIN NA (PORCINE) 5,000 UNITS/ML 1ML VIAL SQ SCH ×3 (06:03→21:56)
[2019-02-21 10:17] LABS: BASO % 0.5 % (0-2.0); HEMATOCRIT 29.7 % (35.4-49); HEMOGLOBIN 9.8 GM/dL (11.7-16.9); LYMPH % 8.9 % (8-40); MCHC 32.9 g/dl (32.0-35.9); MEAN CELL VOLUME 81.9 fl (80-96); MEAN PLT VOLUME 8.6 fl (7.5-11.1); MONO % 10.8 % (3.8-10.2); NEUT % 75.8 % (42.8-82.8); PLATELET COUNT 301 K/MM3 (134-434); RBC 3.63 M/mm3 (4.00-5.60); RDW 15.7 % (11.9-15.9); WHITE BLOOD COUNT 6.9 K/mm3 (4.0-10.0)
[2019-02-21 10:37] LABS: BLOOD UREA NITROGEN 10.8 mg/dL (7-18); CALCIUM 8.7 mg/dL (8.5-10.1); POTASSIUM 4.3 mmol/L (3.5-5.1)
[2019-02-21] MEDS: CARVEDILOL 6.25 MG TABLET (FP) PO SCH ×2 (11:04→21:56)
[2019-02-21] MEDS: CLOPIDOGREL BISULFATE 75 MG TABLET (FP) PO SCH (11:04)
[2019-02-21] MEDS: ASPIRIN 81 MG CHEWABLE TABLETS PO SCH (11:05)
--- NOTE | 2019-02-21 14:06 | PN ---
Teaching Attending Note Name of Resident: Betty Millan ATTENDING PHYSICIAN STATEMENT I saw and evaluated the patient. I reviewed the resident's note and discussed the case with the resident. I agree with the resident's findings and plan as documented with exceptions below. SUBJECTIVE: Patient seen and examined. no complaints. OBJECTIVE: Vital Signs Period Temp Pulse Resp BP Sys/Dominguez Pulse Ox Last 24 Hr 98 F-98.9 F 82-99 18-18 132-153/69-90 100-100 Intake & Output 02/18/19 02/19/19 02/20/19 02/21/19 23:59 23:59 23:59 23:59 Intake Total 2050 3225 2450 850 Output Total 1420 1450 1600 700 Balance 630 1775 850 150 Weight 186 lb 185 lb 6.4 oz General: sitting in bed in no acute distress Chest: CTAB, no rales or wheezing Abdomen:soft, NT, ND extremities: Left 5th toe amputation, wound area with large 5x4 cm area with dried blood on base, no active bleeding or discharge, improved surrounding swelling/erythema, hyperpigmentation present Home Medications Medication Instructions Recorded Aspirin [ASA -] 81 mg PO DAILY 12/23/18 Carvedilol [Coreg] 6.25 mg PO DAILY 12/23/18 Clopidogrel Bisulfate [Clopidogrel] 75 mg PO DAILY 12/23/18 Atorvastatin Ca [Lipitor] 40 mg PO HS tablet 12/29/18 Insulin (Levemir) [Levemir Vial] 10 units SQ AM units 12/29/18 Lisinopril [Prinivil] 5 mg PO DAILY tablet 12/29/18 Active Medications Acetaminophen (Tylenol -) 650 mg PO Q4H PRN PRN Reason: PAIN OR FEVER Aspirin (Asa -) 81 mg PO DAILY [facility] Last Admin: 02/21/19 11:05 Dose: 81 mg Atorvastatin Calcium (Lipitor -) 40 mg PO HS [facility] Last Admin: 02/20/19 22:01 Dose: 40 mg Carvedilol (Coreg -) 6.25 mg PO BID [facility] Last Admin: 02/21/19 11:04 Dose: 6.25 mg Clopidogrel Bisulfate (Plavix -) 75 mg PO DAILY [facility] Last Admin: 02/21/19 11:04 Dose: 75 mg Fentanyl (Sublimaze Injection -) 50 mcg IVPUSH [id number] PRN PRN Reason: PAIN-PACU ORDER X 4 DOSES ONLY Heparin Sodium (Porcine) (Heparin -) 5,000 unit SQ TID [facility] Last Admin: 02/21/19 06:03 Dose: 5,000 unit Cefepime HCl 1 gm/ Dextrose 100 mls @ 200 mls/hr IVPB Q8H-IV [facility]; Protocol Last Admin: 02/21/19 11:05 Dose: 200 mls/hr Metronidazole (Flagyl 500mg Premixed Ivpb -) 500 mg in 100 mls @ 100 mls/hr IVPB Q8H-IV [facility] Last Admin: 02/21/19 11:05 Dose: 100 mls/hr Vancomycin HCl (Vancomycin (Pre-Docked)) 1,000 mg in 250 mls @ 166.667 mls/hr IVPB Q12H [facility]; Protocol Last Admin: 02/21/19 00:12 Dose: 166.667 mls/hr Insulin Aspart (Novolog Vial Sliding Scale -) 1 vial SQ ACHS [facility]; Protocol Last Admin: 02/21/19 11:10 Dose: Not Given Insulin Detemir (Levemir Vial) 35 units SQ HS [facility] Last Admin: 02/20/19 22:03 Dose: 35 units Laboratory Results - last 24 hr 02/20/19 02/20/19 02/21/19 17:00 21:56 05:30 WBC RBC Hgb Hct MCV MCH MCHC RDW Plt Count MPV Absolute Neuts (auto) Neutrophils % Lymphocytes % Monocytes % Eosinophils % Basophils % Nucleated RBC % Sodium Potassium Chloride Carbon Dioxide Anion Gap BUN Creatinine Est GFR (CKD-EPI)AfAm Est GFR (CKD-EPI)NonAf POC Glucometer 157 158 94 Random Glucose Calcium Vancomycin Pre-Dose 02/21/19 02/21/19 02/21/19 09:30 09:30 11:09 WBC 6.9 RBC 3.63 L Hgb 9.8 L Hct 29.7 L MCV 81.9 MCH 27.0 MCHC 32.9 RDW 15.7 Plt Count 301 MPV 8.6 Absolute Neuts (auto) 5.2 Neutrophils % 75.8 Lymphocytes % 8.9 D Monocytes % 10.8 H Eosinophils % 4.0 D Basophils % 0.5 Nucleated RBC % 0 Sodium 139 Potassium 4.3 Chloride 104 Carbon Dioxide 30 Anion Gap 5 L BUN 10.8 Creatinine 1.0 Est GFR (CKD-EPI)AfAm 95.73 Est GFR (CKD-EPI)NonAf 82.60 POC Glucometer 134 Random Glucose 126 H Calcium 8.7 Vancomycin Pre-Dose 02/21/19 11:10 WBC RBC Hgb Hct MCV MCH MCHC RDW Plt Count MPV Absolute Neuts (auto) Neutrophils % Lymphocytes % Monocytes % Eosinophils % Basophils % Nucleated RBC % Sodium Potassium Chloride Carbon Dioxide Anion Gap BUN Creatinine Est GFR (CKD-EPI)AfAm Est GFR (CKD-EPI)NonAf POC Glucometer Random Glucose Calcium Vancomycin Pre-Dose 19.4 Microbiology 02/20/19 08:00 Foot - Left Gram Stain - Final 02/20/19 08:00 Foot - Left Wound Culture - Preliminary NO GROWTH OBTAINED AFTER 24 HOURS INCUBATION, REINCUBATED. 02/19/19 18:30 Foot - Left Gram Stain - Final 02/19/19 18:30 Foot - Left Wound Culture - Preliminary NO GROWTH OBTAINED AFTER 24 HOURS INCUBATION, REINCUBATED. 02/17/19 14:00 Blood - Peripheral Venous Blood Culture - Preliminary NO GROWTH OBTAINED AFTER 72 HOURS, INCUBATION TO CONTINUE FOR 2 DAYS. 02/17/19 14:21 Blood - Peripheral Venous Blood Culture - Preliminary NO GROWTH OBTAINED AFTER 72 HOURS, INCUBATION TO CONTINUE FOR 2 DAYS. ASSESSMENT AND PLAN: 58 yom with PMHx off IDDM, poorly controlled, PVD s/p bilateral revascularization, amputation right great toe, Peripheral neuropathy, gastroparesis, sent with Left 5th toe osteomyelitis/gas gangrene s/p amputation -Left foot gas gangrene s/p left 5th ray amputation 02/18/2019 -MARIEL, suspect from hyperglycemia, hypovolumia, resolved -IDDM, poorly controlled -PVD s/p bilateral revascularization/amputation right great toe -Peripheral neuropathy -HTN Plan: Cefepime/vanco/flagyl, continue per ID Wound care per podiatry. Follow up wound cx/surgical pathology results Anticpate alf Abx, patient requests SNF, discussed with CM. MARIEL resolved. Resume ACEi. renal input noted. Levemir increased, ISS. A1c 8.4. Continue ASA/Plavix/statin. DVTPPX heparin dispo anticipate SNF early next week, with PICC/IV abx pending cultures/ID/ podiatry input and clinical course. Discussed with patient and nursing.
--- NOTE | 2019-02-21 14:10 | PN ---
Progress Note, Physician Chief Complaint: 58 y/o male s/p left 5th ray resection. States feeling much better. States wound was cleansed and redressed earlier today. Deniesany acute events. Wants to go to snf - Current Medication List Current Medications: Active Medications Acetaminophen (Tylenol -) 650 mg PO Q4H PRN PRN Reason: PAIN OR FEVER Aspirin (Asa -) 81 mg PO DAILY [facility] Last Admin: 02/21/19 11:05 Dose: 81 mg Atorvastatin Calcium (Lipitor -) 40 mg PO HS [facility] Last Admin: 02/20/19 22:01 Dose: 40 mg Carvedilol (Coreg -) 6.25 mg PO BID [facility] Last Admin: 02/21/19 11:04 Dose: 6.25 mg Clopidogrel Bisulfate (Plavix -) 75 mg PO DAILY [facility] Last Admin: 02/21/19 11:04 Dose: 75 mg Heparin Sodium (Porcine) (Heparin -) 5,000 unit SQ TID [facility] Last Admin: 02/21/19 06:03 Dose: 5,000 unit Cefepime HCl 1 gm/ Dextrose 100 mls @ 200 mls/hr IVPB Q8H-IV [facility]; Protocol Last Admin: 02/21/19 11:05 Dose: 200 mls/hr Metronidazole (Flagyl 500mg Premixed Ivpb -) 500 mg in 100 mls @ 100 mls/hr IVPB Q8H-IV [facility] Last Admin: 02/21/19 11:05 Dose: 100 mls/hr Vancomycin HCl (Vancomycin (Pre-Docked)) 1,000 mg in 250 mls @ 166.667 mls/hr IVPB Q12H [facility]; Protocol Last Admin: 02/21/19 00:12 Dose: 166.667 mls/hr Insulin Aspart (Novolog Vial Sliding Scale -) 1 vial SQ ACHS [facility]; Protocol Last Admin: 02/21/19 11:10 Dose: Not Given Insulin Detemir (Levemir Vial) 35 units SQ HS [facility] Last Admin: 02/20/19 22:03 Dose: 35 units Lisinopril (Prinivil) 5 mg PO DAILY [facility] - Objective Vital Signs: Vital Signs Temperature 98 F 02/21/19 11:20 Pulse Rate 87 02/21/19 11:20 Respiratory Rate 18 02/21/19 11:20 Blood Pressure 145/85 02/21/19 11:20 O2 Sat by Pulse Oximetry (%) 100 02/21/19 09:00 Extremities: Yes: Other (dressing left c/d/i) Labs: CBC, BMP 02/21/19 09:30 02/21/19 09:30 INR, PTT INR 1.18 (0.83-1.09) H 02/17/19 14:21 Assessment/Plan 58 y/o diabetic male who had gas gangrene s/p left 5th ray resection Evaluated and reviewed will need VAC placement which can be done as outpatient f/u cultures For Rehab early next week Dressing change daily with wet to dry and saline cleanse WB to the heel,minimal Iv abx per ID. Stable from pod point for d/c as needed and will f/u in the wound care center withDr. Santoyo as previously.
--- NOTE | 2019-02-21 14:21 | PN ---
Physical Exam: SUBJECTIVE: Patient seen and examined. He reports some pain and swelling following PT yesterday but is not requiring Tylenol. He denies fever, chills, chest pain, shortness of breath, abdominal pain, nausea, vomiting, and diarrhea. OBJECTIVE: Vital Signs Period Temp Pulse Resp BP Sys/Dominguez Pulse Ox Last 24 Hr 98 F-98.9 F 82-99 18-18 132-153/69-90 100-100 GENERAL: The patient is awake, alert, and fully oriented, in no acute distress. HEAD: Normal with no signs of trauma. EYES: PERRL, extraocular movements intact ENT: Ears normal, nares patent, moist mucous membranes. NECK: Trachea midline, full range of motion LUNGS: CTAB, no accessory muscle use. HEART: Regular rate and rhythm, no murmur ABDOMEN: Soft, nontender, nondistended, normoactive bowel sounds EXTREMITIES: Left 5th digit amputation with open wound on distal and lateral aspects of foot with no drainage. Right 1st toe amputation with closure scar. 2 plantar areas of erythema. NEUROLOGICAL: Normal speech PSYCH: Normal mood, improved from yesterday SKIN: Warm, dry, normal turgor Laboratory Results - last 24 hr 02/20/19 02/20/19 02/21/19 17:00 21:56 05:30 WBC RBC Hgb Hct MCV MCH MCHC RDW Plt Count MPV Absolute Neuts (auto) Neutrophils % Lymphocytes % Monocytes % Eosinophils % Basophils % Nucleated RBC % Sodium Potassium Chloride Carbon Dioxide Anion Gap BUN Creatinine Est GFR (CKD-EPI)AfAm Est GFR (CKD-EPI)NonAf POC Glucometer 157 158 94 Random Glucose Calcium Vancomycin Pre-Dose 02/21/19 02/21/19 02/21/19 09:30 09:30 11:09 WBC 6.9 RBC 3.63 L Hgb 9.8 L Hct 29.7 L MCV 81.9 MCH 27.0 MCHC 32.9 RDW 15.7 Plt Count 301 MPV 8.6 Absolute Neuts (auto) 5.2 Neutrophils % 75.8 Lymphocytes % 8.9 D Monocytes % 10.8 H Eosinophils % 4.0 D Basophils % 0.5 Nucleated RBC % 0 Sodium 139 Potassium 4.3 Chloride 104 Carbon Dioxide 30 Anion Gap 5 L BUN 10.8 Creatinine 1.0 Est GFR (CKD-EPI)AfAm 95.73 Est GFR (CKD-EPI)NonAf 82.60 POC Glucometer 134 Random Glucose 126 H Calcium 8.7 Vancomycin Pre-Dose 02/21/19 11:10 WBC RBC Hgb Hct MCV MCH MCHC RDW Plt Count MPV Absolute Neuts (auto) Neutrophils % Lymphocytes % Monocytes % Eosinophils % Basophils % Nucleated RBC % Sodium Potassium Chloride Carbon Dioxide Anion Gap BUN Creatinine Est GFR (CKD-EPI)AfAm Est GFR (CKD-EPI)NonAf POC Glucometer Random Glucose Calcium Vancomycin Pre-Dose 19.4 Active Medications Generic Name Dose Route Start Last Admin Trade Name Freq PRN Reason Stop Dose Admin Acetaminophen 650 mg 02/19/19 08:10 Tylenol - PO Q4H PRN PAIN OR FEVER Aspirin 81 mg 02/19/19 10:00 02/21/19 11:05 Asa - PO 81 mg DAILY [facility] Administration Atorvastatin Calcium 40 mg 02/19/19 22:00 02/20/19 22:01 Lipitor - PO 40 mg HS [facility] Administration Carvedilol 6.25 mg 02/19/19 10:00 02/21/19 11:04 Coreg - PO 6.25 mg BID [facility] Administration Clopidogrel Bisulfate 75 mg 02/19/19 10:00 02/21/19 11:04 Plavix - PO 75 mg DAILY [facility] Administration Heparin Sodium (Porcine) 5,000 unit 02/19/19 14:00 02/21/19 06:03 Heparin - SQ 5,000 unit TID [facility] Administration Cefepime HCl 1 gm/ Dextrose 100 mls @ 200 mls/hr 02/19/19 10:00 02/21/19 11: 05 IVPB 200 mls/hr Q8H-IV [facility] Administration Protocol Metronidazole 500 mg in 100 mls @ 100 mls/hr 02/19/19 10:00 02/21/19 11:05 Flagyl 500mg Premixed Ivpb - IVPB 100 mls/hr Q8H-IV [facility] Administration Vancomycin HCl 1,000 mg in 250 mls @ 166.667 mls/hr 02/19/19 12:00 02/21/19 00:12 Vancomycin (Pre-Docked) IVPB 166.667 mls/hr Q12H [facility] Administration Protocol Insulin Aspart 1 vial 02/19/19 11:00 02/21/19 11:10 Novolog Vial Sliding Scale - SQ Not Given ACHS [facility] Protocol Insulin Detemir 35 units 02/19/19 22:00 02/20/19 22:03 Levemir Vial SQ 35 units HS [facility] Administration Lisinopril 5 mg 02/21/19 14:15 Prinivil PO DAILY [facility] ASSESSMENT/PLAN: Mr. Cobian is a 58 y/o male with DM, HTN, and venous insufficiency who presents from Dr. Santoyo's office for amputation of the left 5th digit. Imaging showed osteomyelitis. POD 3 s/p amputation. #left 5th toe osteomyelitis POD 3 s/p 5th toe amputation Pt tachycardic at presentation, afebrile, no leukocytosis. MRI positive for osteomyelitis. -wound culture prelim- Gram positive cocci -blood culture prelim- negative -podiatry following- dressing change daily with wet to dry and saline rinse, wound vac as outpatient -ID following- vanc level in range -Vancomycin day 3 -Cefepime day 4 -Flagyl day 4 -Tylenol PRN pain -PT- walked with post-op shoe yesterday #peripheral vascular disease s/p b/l revascularization this year -vascular following -ASA -Plavix -continue atorvastatin #MARIEL, resolved Cr 1.5-->1.0. Renal U/S normal. -nephrology following -avoid NSAIDS and nephrotoxic agents #DM A1C 8.4. On Levemir 60U at home. BGs well-controlled now on Levemir. -Levemir 35U -SSI -BGM #HTN Initially held home carvedilol -home carvedilol DVT Ppx heparin FEN PO fluids monitor Cr diabetic/sodium diet Dispo Pt requesting SNF, poss d/c early next week Visit type - Emergency Visit Emergency Visit: Yes ED Registration Date: 02/17/19 Care time: The patient presented to the Emergency Department on the above date and was hospitalized for further evaluation of their emergent condition. - New Patient This patient is new to me today: No - Critical Care Critical Care patient: No - Discharge Referral Referred to [facility] Med P.C.: No ATTENDING PHYSICIAN STATEMENT I saw and evaluated the patient. I reviewed the resident's note and discussed the case with the resident. I agree with the resident's findings and plan as documented. SUBJECTIVE: OBJECTIVE: ASSESSMENT AND PLAN:
--- NOTE | 2019-02-21 15:31 | PN ---
Progress Note, Physician History of Present Illness: AWAKE, ALERT IN BED NO C/O FOOT PAIN NO FEVER/ CHILLS VANCO TROUGH NOTED TOLERATNG CEPHALOSPORIN - Current Medication List Current Medications: Active Medications Acetaminophen (Tylenol -) 650 mg PO Q4H PRN PRN Reason: PAIN OR FEVER Aspirin (Asa -) 81 mg PO DAILY [facility] Last Admin: 02/21/19 11:05 Dose: 81 mg Atorvastatin Calcium (Lipitor -) 40 mg PO HS [facility] Last Admin: 02/20/19 22:01 Dose: 40 mg Carvedilol (Coreg -) 6.25 mg PO BID [facility] Last Admin: 02/21/19 11:04 Dose: 6.25 mg Clopidogrel Bisulfate (Plavix -) 75 mg PO DAILY [facility] Last Admin: 02/21/19 11:04 Dose: 75 mg Heparin Sodium (Porcine) (Heparin -) 5,000 unit SQ TID [facility] Last Admin: 02/21/19 06:03 Dose: 5,000 unit Cefepime HCl 1 gm/ Dextrose 100 mls @ 200 mls/hr IVPB Q8H-IV [facility]; Protocol Last Admin: 02/21/19 11:05 Dose: 200 mls/hr Metronidazole (Flagyl 500mg Premixed Ivpb -) 500 mg in 100 mls @ 100 mls/hr IVPB Q8H-IV [facility] Last Admin: 02/21/19 11:05 Dose: 100 mls/hr Vancomycin HCl (Vancomycin (Pre-Docked)) 1,000 mg in 250 mls @ 166.667 mls/hr IVPB Q12H [facility]; Protocol Last Admin: 02/21/19 00:12 Dose: 166.667 mls/hr Insulin Aspart (Novolog Vial Sliding Scale -) 1 vial SQ ACHS [facility]; Protocol Last Admin: 02/21/19 11:10 Dose: Not Given Insulin Detemir (Levemir Vial) 35 units SQ HS [facility] Last Admin: 02/20/19 22:03 Dose: 35 units Lisinopril (Prinivil) 5 mg PO DAILY [facility] - Objective Vital Signs: Vital Signs Temperature 98 F 02/21/19 11:20 Pulse Rate 87 02/21/19 11:20 Respiratory Rate 18 02/21/19 11:20 Blood Pressure 145/85 02/21/19 11:20 O2 Sat by Pulse Oximetry (%) 100 02/21/19 09:00 Constitutional: Yes: No Distress Cardiovascular: Yes: Regular Rate and Rhythm, S1, S2 Respiratory: Yes: CTA Bilaterally Gastrointestinal: Yes: Normal Bowel Sounds, Soft Extremities: Yes: Other (L 5TH TOE AMPUTATION SITE WITH PACKING IN PLACE. NO PURULRNCE/ FOUL ODOR. + SWELLING/ ERYTHEMA OF FOOT) Labs: CBC, BMP 02/21/19 09:30 02/21/19 09:30 INR, PTT INR 1.18 (0.83-1.09) H 02/17/19 14:21 Assessment/Plan S/P AMPUTATION 5TH TOE DIABETES MELLITUS AZOTEMIA PCN ALLERY CONTINUE CEFEPIME/ FLAGYL ADJUST VANCOMYCIN
[2019-02-21] MEDS: LISINOPRIL 5 MG TABLET (FP) PO SCH (15:46)
[2019-02-21] MEDS: ACETAMINOPHEN 325 MG TABLET (FP) PO PRN (20:07)
[2019-02-21] MEDS: ATORVASTATIN CA 40 MG TABLET (FP) PO SCH (21:56)
[2019-02-21] MEDS: INSULIN (LEVEMIR) 100 UNITS/ML UNITS SQ SCH (21:57)
[2019-02-22] MEDS: VANCOMYCIN 1 GRAM (PRE-DOCKED) 1,000 MG/250 ML BAG IVPB SCH (01:05)
[2019-02-22] MEDS: CEFEPIME 1 GM in DEXTROSE 5%-WATER 100 ML IVPB SCH ×3 (03:09→17:20)
[2019-02-22] MEDS ORDERED: CEFEPIME HCL 1 GM VIAL (RESTRICTED TO ID) ONE ×3 (03:10→17:16)
[2019-02-22] MEDS ORDERED: DEXTROSE 5%-WATER 100 ML IVPB ONE ×3 (03:10→17:16)
[2019-02-22] MEDS: HEPARIN NA (PORCINE) 5,000 UNITS/ML 1ML VIAL SQ SCH ×3 (07:06→21:44)
[2019-02-22] MEDS: INSULIN SLIDING SCALE (NOVOLOG) 1 VIAL SQ SCH ×4 (07:08→21:44)
[2019-02-22 08:54] LABS: BASO % 0.8 % (0-2.0); EOS % 3.4 % (0-4.5); HEMATOCRIT 28.1 % (35.4-49); HEMOGLOBIN 9.2 GM/dL (11.7-16.9); LYMPH % 9.7 % (8-40); MCH 26.8 pg (25.7-33.7); MCHC 32.7 g/dl (32.0-35.9); MEAN CELL VOLUME 81.9 fl (80-96); MEAN PLT VOLUME 8.8 fl (7.5-11.1); MONO % 11.1 % (3.8-10.2); PLATELET COUNT 286 K/MM3 (134-434); RBC 3.43 M/mm3 (4.00-5.60); RDW 16.3 % (11.9-15.9)
[2019-02-22 09:26] LABS: BLOOD UREA NITROGEN 14.6 mg/dL (7-18); CREATININE 1.1 mg/dL (0.55-1.3); POTASSIUM 4.5 mmol/L (3.5-5.1)
[2019-02-22] MEDS: CLOPIDOGREL BISULFATE 75 MG TABLET (FP) PO SCH (09:45)
[2019-02-22] MEDS: CARVEDILOL 6.25 MG TABLET (FP) PO SCH ×2 (09:45→21:44)
[2019-02-22] MEDS: LISINOPRIL 5 MG TABLET (FP) PO SCH (09:45)
[2019-02-22] MEDS: ASPIRIN 81 MG CHEWABLE TABLETS PO SCH (09:45)
--- NOTE | 2019-02-22 13:00 | PN ---
Physical Exam: SUBJECTIVE: Patient seen and examined, no new complaints, doing well. OBJECTIVE: Vital Signs Period Temp Pulse Resp BP Sys/Dominguez Pulse Ox Last 24 Hr 98.4 F-98.6 F 79-90 18-18 127-133/77-80 99 Intake & Output 02/19/19 02/20/19 02/21/19 02/22/19 23:59 23:59 23:59 23:59 Intake Total 3225 2450 1450 400 Output Total 1450 1600 2200 Balance 1775 850 -750 400 Weight 185 lb 6.4 oz General: sitting in bed in no acute distress CVS: S1S2 regular Chest: CTAB, no rales or wheezing Abdomen:soft, NT, ND extremities: Left 5th toe amputation, well healing wound area with large 5x4 cm area with dried blood on base, no active bleeding or discharge, improved surrounding swelling/erythema, hyperpigmentation present Laboratory Results - last 24 hr 02/21/19 02/21/19 02/22/19 16:25 22:00 07:07 WBC RBC Hgb Hct MCV MCH MCHC RDW Plt Count MPV Absolute Neuts (auto) Neutrophils % Lymphocytes % Monocytes % Eosinophils % Basophils % Nucleated RBC % Sodium Potassium Chloride Carbon Dioxide Anion Gap BUN Creatinine Est GFR (CKD-EPI)AfAm Est GFR (CKD-EPI)NonAf POC Glucometer 182 184 141 Random Glucose Calcium 02/22/19 02/22/19 02/22/19 07:46 07:46 11:49 WBC 7.0 RBC 3.43 L Hgb 9.2 L Hct 28.1 L MCV 81.9 MCH 26.8 MCHC 32.7 RDW 16.3 H Plt Count 286 MPV 8.8 Absolute Neuts (auto) 5.2 Neutrophils % 75.0 Lymphocytes % 9.7 Monocytes % 11.1 H Eosinophils % 3.4 Basophils % 0.8 Nucleated RBC % 0 Sodium 140 Potassium 4.5 Chloride 106 Carbon Dioxide 30 Anion Gap 5 L BUN 14.6 Creatinine 1.1 Est GFR (CKD-EPI)AfAm 85.31 Est GFR (CKD-EPI)NonAf 73.61 POC Glucometer 165 Random Glucose 139 H Calcium 8.0 L Active Medications Generic Name Dose Route Start Last Admin Trade Name Freq PRN Reason Stop Dose Admin Acetaminophen 650 mg 02/19/19 08:10 02/21/19 20:07 Tylenol - PO 650 mg Q4H PRN Administration PAIN OR FEVER Aspirin 81 mg 02/19/19 10:00 02/22/19 09:45 Asa - PO 81 mg DAILY [facility] Administration Atorvastatin Calcium 40 mg 02/19/19 22:00 02/21/19 21:56 Lipitor - PO 40 mg HS [facility] Administration Carvedilol 6.25 mg 02/19/19 10:00 02/22/19 09:45 Coreg - PO 6.25 mg BID [facility] Administration Clopidogrel Bisulfate 75 mg 02/19/19 10:00 02/22/19 09:45 Plavix - PO 75 mg DAILY [facility] Administration Heparin Sodium (Porcine) 5,000 unit 02/19/19 14:00 02/22/19 07:06 Heparin - SQ 5,000 unit TID [facility] Administration Cefepime HCl 1 gm/ Dextrose 100 mls @ 200 mls/hr 02/19/19 10:00 02/22/19 09: 45 IVPB 200 mls/hr Q8H-IV [facility] Administration Protocol Metronidazole 500 mg in 100 mls @ 100 mls/hr 02/19/19 10:00 02/22/19 09:45 Flagyl 500mg Premixed Ivpb - IVPB 100 mls/hr Q8H-IV [facility] Administration Vancomycin HCl 1,000 mg in 250 mls @ 166.667 mls/hr 02/22/19 00:00 02/22/19 01:05 Vancomycin (Pre-Docked) IVPB 166.667 mls/hr DAILY@0000 [facility] Administration Protocol Insulin Aspart 1 vial 02/19/19 11:00 02/22/19 11:51 Novolog Vial Sliding Scale - SQ 2 units ACHS [facility] Administration Protocol Insulin Detemir 35 units 02/19/19 22:00 02/21/19 21:57 Levemir Vial SQ 35 units HS [facility] Administration Lisinopril 5 mg 02/21/19 14:30 02/22/19 09:45 Prinivil PO 5 mg DAILY [facility] Administration Microbiology 02/20/19 08:00 Foot - Left Gram Stain - Final 02/20/19 08:00 Foot - Left Wound Culture - Preliminary Presumptive Mrsa (Pbp2a Pos) 02/19/19 18:30 Foot - Left Gram Stain - Final 02/19/19 18:30 Foot - Left Wound Culture - Final NO GROWTH AFTER 48 HOURS INCUBATION 02/17/19 14:00 Blood - Peripheral Venous Blood Culture - Preliminary NO GROWTH OBTAINED AFTER 96 HOURS, INCUBATION TO CONTINUE FOR 1 DAYS. 02/17/19 14:21 Blood - Peripheral Venous Blood Culture - Preliminary NO GROWTH OBTAINED AFTER 96 HOURS, INCUBATION TO CONTINUE FOR 1 DAYS. ASSESSMENT/PLAN: 58 yom with PMHx off IDDM, poorly controlled, PVD s/p bilateral revascularization, amputation right great toe, Peripheral neuropathy, gastroparesis, sent with Left 5th toe osteomyelitis/gas gangrene s/p amputation -Left foot gas gangrene s/p left 5th ray amputation 02/18/2019 -MARIEL, suspect from hyperglycemia, hypovolumia, resolved -IDDM, poorly controlled -PVD s/p bilateral revascularization/amputation right great toe -Peripheral neuropathy -HTN Plan: Wound cx with MRSA. Follow up with ID for abx taper. Wound care per podiatry. Anticipate remote computer terminal operator Abx, patient requests SNF, discussed with CM. MARIEL resolved. Continue ACEi. renal input noted. Levemir increased, ISS. A1c 8.4. Continue ASA/Plavix/statin. DVTPPX heparin dispo anticipate SNF in 24-48 hours with PICC/IV abx pending cultures/ID/ podiatry input and clinical course. Discussed with patient and nursing. Visit type - Emergency Visit Emergency Visit: Yes ED Registration Date: 02/17/19 Care time: The patient presented to the Emergency Department on the above date and was hospitalized for further evaluation of their emergent condition. - New Patient This patient is new to me today: No - Critical Care Critical Care patient: No - Discharge Referral Referred to [facility] Med P.C.: No
[2019-02-22] MEDS: INSULIN (LEVEMIR) 100 UNITS/ML UNITS SQ SCH (21:43)
[2019-02-22] MEDS: ATORVASTATIN CA 40 MG TABLET (FP) PO SCH (21:44)
[2019-02-23] MEDS ORDERED: CEFEPIME HCL 1 GM VIAL (RESTRICTED TO ID) ONE ×3 (00:42→17:56)
[2019-02-23] MEDS ORDERED: DEXTROSE 5%-WATER 100 ML IVPB ONE ×3 (00:42→17:56)
[2019-02-23] MEDS: VANCOMYCIN 1 GRAM (PRE-DOCKED) 1,000 MG/250 ML BAG IVPB SCH (00:53)
[2019-02-23] MEDS: CEFEPIME 1 GM in DEXTROSE 5%-WATER 100 ML IVPB SCH ×3 (02:13→18:00)
[2019-02-23] MEDS: ACETAMINOPHEN 325 MG TABLET (FP) PO PRN ×2 (03:24→15:27)
[2019-02-23] MEDS: HEPARIN NA (PORCINE) 5,000 UNITS/ML 1ML VIAL SQ SCH ×3 (06:27→22:23)
[2019-02-23] MEDS: INSULIN SLIDING SCALE (NOVOLOG) 1 VIAL SQ SCH ×5 (06:28→22:30)
[2019-02-23] MEDS: LISINOPRIL 5 MG TABLET (FP) PO SCH (09:23)
[2019-02-23] MEDS: CLOPIDOGREL BISULFATE 75 MG TABLET (FP) PO SCH (09:26)
[2019-02-23] MEDS: CARVEDILOL 6.25 MG TABLET (FP) PO SCH ×2 (09:26→22:26)
--- NOTE | 2019-02-23 12:32 | PN ---
Teaching Attending Note Name of Resident: Betty Millan ATTENDING PHYSICIAN STATEMENT I saw and evaluated the patient. I reviewed the resident's note and discussed the case with the resident. I agree with the resident's findings and plan as documented with exceptions below. SUBJECTIVE: patient seen and examined. No new pain or complaints, doing well. OBJECTIVE: Vital Signs Period Temp Pulse Resp BP Sys/Dominguez Pulse Ox Last 24 Hr 98.5 F-98.8 F 80-91 18-18 108-141/66-78 98 Intake & Output 02/20/19 02/21/19 02/22/19 02/23/19 23:59 23:59 23:59 23:59 Intake Total 2450 1450 1600 450 Output Total 1600 2200 700 Balance 850 -750 900 450 Weight 185 lb 6.4 oz General: sitting in bed in no acute distress Chest: CTAB, no rales or wheezing Abdomen:Soft, NT Extremities: Left 5th toe amputation, wound area with large 5x4 cm area with dried blood on base, no active bleeding or discharge, almost resolved surrounding swelling/erythema, hyperpigmentation present on dorsum of left foot Home Medications Medication Instructions Recorded Aspirin [ASA -] 81 mg PO DAILY 12/23/18 Carvedilol [Coreg] 6.25 mg PO DAILY 12/23/18 Clopidogrel Bisulfate [Clopidogrel] 75 mg PO DAILY 12/23/18 Atorvastatin Ca [Lipitor] 40 mg PO HS tablet 12/29/18 Insulin (Levemir) [Levemir Vial] 10 units SQ AM units 12/29/18 Lisinopril [Prinivil] 5 mg PO DAILY tablet 12/29/18 Active Medications Acetaminophen (Tylenol -) 650 mg PO Q4H PRN PRN Reason: PAIN OR FEVER Last Admin: 02/23/19 03:24 Dose: 650 mg Aspirin (Asa -) 81 mg PO DAILY [facility] Last Admin: 02/22/19 09:45 Dose: 81 mg Atorvastatin Calcium (Lipitor -) 40 mg PO HS [facility] Last Admin: 02/22/19 21:44 Dose: 40 mg Carvedilol (Coreg -) 6.25 mg PO BID [facility] Last Admin: 02/23/19 09:26 Dose: Not Given Clopidogrel Bisulfate (Plavix -) 75 mg PO DAILY [facility] Last Admin: 02/23/19 09:26 Dose: 75 mg Heparin Sodium (Porcine) (Heparin -) 5,000 unit SQ TID [facility] Last Admin: 02/23/19 06:27 Dose: 5,000 unit Cefepime HCl 1 gm/ Dextrose 100 mls @ 200 mls/hr IVPB Q8H-IV [facility]; Protocol Last Admin: 02/23/19 02:13 Dose: 200 mls/hr Metronidazole (Flagyl 500mg Premixed Ivpb -) 500 mg in 100 mls @ 100 mls/hr IVPB Q8H-IV [facility] Last Admin: 02/23/19 03:15 Dose: 100 mls/hr Vancomycin HCl (Vancomycin (Pre-Docked)) 1,000 mg in 250 mls @ 166.667 mls/hr IVPB DAILY@0000 [facility]; Protocol Last Admin: 02/23/19 00:53 Dose: 166.667 mls/hr Insulin Aspart (Novolog Vial Sliding Scale -) 1 vial SQ ACHS [facility]; Protocol Last Admin: 02/23/19 06:28 Dose: Not Given Insulin Detemir (Levemir Vial) 35 units SQ HS [facility] Last Admin: 02/22/19 21:43 Dose: 35 units Lisinopril (Prinivil) 5 mg PO DAILY [facility] Last Admin: 02/23/19 09:23 Dose: 5 mg Laboratory Results - last 24 hr 02/22/19 02/22/19 02/23/19 17:12 21:42 06:25 POC Glucometer 201 246 166 C-Reactive Protein 02/23/19 02/23/19 06:50 12:14 POC Glucometer 155 C-Reactive Protein 4.1 H Microbiology 02/20/19 08:00 Foot - Left Gram Stain - Final 02/20/19 08:00 Foot - Left Wound Culture - Preliminary Mr S Aureus 02/17/19 14:00 Blood - Peripheral Venous Blood Culture - Final NO GROWTH AFTER 5 DAYS INCUBATION 02/17/19 14:21 Blood - Peripheral Venous Blood Culture - Final NO GROWTH AFTER 5 DAYS INCUBATION 02/19/19 18:30 Foot - Left Gram Stain - Final 02/19/19 18:30 Foot - Left Wound Culture - Final NO GROWTH AFTER 48 HOURS INCUBATION ASSESSMENT AND PLAN: 58 yom with PMHx off IDDM, poorly controlled, PVD s/p bilateral revascularization, amputation right great toe, Peripheral neuropathy, gastroparesis, sent with Left 5th toe osteomyelitis/gas gangrene s/p amputation -Left foot gas gangrene s/p left 5th ray amputation 02/18/2019 -MARIEL, suspect from hyperglycemia, hypovolumia, resolved -IDDM, poorly controlled -PVD s/p bilateral revascularization/amputation right great toe -Peripheral neuropathy -HTN Plan: Wound cx with MRSA. Follow up with ID for abx taper. Wound care per podiatry. Anticipate chcf Abx, patient requests SNF, discussed with CM. MARIEL resolved. Continue ACEi. renal input noted. Levemir increased, ISS. A1c 8.4. Continue ASA/Plavix/statin. DVTPPX heparin dispo anticipate SNF in 24 hours with PICC/IV abx pending cultures/ID/podiatry input and clinical course. Discussed with clif.
--- NOTE | 2019-02-23 15:07 | PN ---
Progress Note (short form) - Note Progress Note: pod #5 s/p amputation fifth toe Vital Signs Period Temp Pulse Resp BP Sys/Dominguez Pulse Ox Last 24 Hr 98.5 F-98.7 F 80-91 18-18 108-130/66-78 98 cor-rrr lungs- clear abd soft, nt ext foot examined, still with yellow tissue at lower aspect of the wound-boggy CBC, BMP 02/22/19 07:46 02/22/19 07:46 Laboratory Tests 02/18/19 02/18/19 02/23/19 08:47 08:47 06:50 ESR 108 H C-Reactive Protein 9.7 H 4.1 H Microbiology 02/20/19 08:00 Foot - Left Gram Stain - Final 02/20/19 08:00 Foot - Left Wound Culture - Final S Aureus 02/17/19 14:00 Blood - Peripheral Venous Blood Culture - Final NO GROWTH AFTER 5 DAYS INCUBATION 02/17/19 14:21 Blood - Peripheral Venous Blood Culture - Final NO GROWTH AFTER 5 DAYS INCUBATION 02/19/19 18:30 Foot - Left Gram Stain - Final 02/19/19 18:30 Foot - Left Wound Culture - Final NO GROWTH AFTER 48 HOURS INCUBATION a/p pod #5 s/p amputation of the fifth toe/ray amputation-f/u path and cultures poorly controlled DM PVD pen allergy mariel would like podiatry to re-evaluate the wound in am continue same antiibotics with plans for picc line with iv vancomycin alone at discharge awaiting pathology Problem List - Problems (1) Diabetic foot ulcer Code(s): E11.621 - TYPE 2 DIABETES MELLITUS WITH FOOT ULCER; L97.509 - NON- PRESSURE CHRONIC ULCER OTH PRT UNSP FOOT W UNSP SEVERITY Qualifiers: Diabetic foot ulcer location: toe Diabetes mellitus type: type 2 Laterality: left Non-pressure ulcer stage: with muscle involvement without evidence of necrosis Qualified Code(s): E11.621 - Type 2 diabetes mellitus with foot ulcer; L97.525 - Non-pressure chronic ulcer of other part of left foot with muscle involvement without evidence of necrosis (2) Osteomyelitis Code(s): M86.9 - OSTEOMYELITIS, UNSPECIFIED (3) PVD (peripheral vascular disease) Code(s): I73.9 - PERIPHERAL VASCULAR DISEASE, UNSPECIFIED (4) MARIEL (acute kidney injury) Code(s): N17.9 - ACUTE KIDNEY FAILURE, UNSPECIFIED (5) Penicillin allergy Code(s): Z88.0 - ALLERGY STATUS TO PENICILLIN
--- NOTE | 2019-02-23 15:12 | PN ---
Progress Note, Physician History of Present Illness: Pt seen and examined. He feels well. - Current Medication List Current Medications: Active Medications Acetaminophen (Tylenol -) 650 mg PO Q4H PRN PRN Reason: PAIN OR FEVER Last Admin: 02/23/19 03:24 Dose: 650 mg Aspirin (Asa -) 81 mg PO DAILY [facility] Last Admin: 02/22/19 09:45 Dose: 81 mg Atorvastatin Calcium (Lipitor -) 40 mg PO HS [facility] Last Admin: 02/22/19 21:44 Dose: 40 mg Carvedilol (Coreg -) 6.25 mg PO BID [facility] Last Admin: 02/23/19 09:26 Dose: Not Given Clopidogrel Bisulfate (Plavix -) 75 mg PO DAILY [facility] Last Admin: 02/23/19 09:26 Dose: 75 mg Heparin Sodium (Porcine) (Heparin -) 5,000 unit SQ TID [facility] Last Admin: 02/23/19 14:27 Dose: 5,000 unit Cefepime HCl 1 gm/ Dextrose 100 mls @ 200 mls/hr IVPB Q8H-IV [facility]; Protocol Last Admin: 02/23/19 13:12 Dose: 200 mls/hr Metronidazole (Flagyl 500mg Premixed Ivpb -) 500 mg in 100 mls @ 100 mls/hr IVPB Q8H-IV [facility] Last Admin: 02/23/19 14:17 Dose: 100 mls/hr Vancomycin HCl 1,250 mg/ (Dextrose) 250 mls @ 250 mls/2 hr IVPB Q24H [facility]; Protocol Insulin Aspart (Novolog Vial Sliding Scale -) 1 vial SQ ACHS [facility]; Protocol Last Admin: 02/23/19 12:28 Dose: 2 units Insulin Detemir (Levemir Vial) 35 units SQ HS [facility] Last Admin: 02/22/19 21:43 Dose: 35 units Lisinopril (Prinivil) 5 mg PO DAILY [facility] Last Admin: 02/23/19 09:23 Dose: 5 mg - Objective Vital Signs: Vital Signs Temperature 98.7 F 02/23/19 06:00 Pulse Rate 80 02/23/19 06:00 Respiratory Rate 18 02/23/19 06:00 Blood Pressure 108/66 02/23/19 06:00 O2 Sat by Pulse Oximetry (%) 98 02/22/19 21:00 Constitutional: Yes: Calm Eyes: Yes: Conjunctiva Clear HENT: Yes: Atraumatic Neck: Yes: Supple Cardiovascular: Yes: S1, S2 Respiratory: Yes: CTA Bilaterally Gastrointestinal: Yes: Soft Musculoskeletal: Yes: WNL Edema: No Wound/Incision: Yes: Dressing Dry and Intact Labs: CBC, BMP 02/22/19 07:46 02/22/19 07:46 INR, PTT INR 1.18 (0.83-1.09) H 02/17/19 14:21 Problem List - Problems (1) MARIEL (acute kidney injury) Code(s): N17.9 - ACUTE KIDNEY FAILURE, UNSPECIFIED (2) Diabetic foot ulcer Code(s): E11.621 - TYPE 2 DIABETES MELLITUS WITH FOOT ULCER; L97.509 - NON- PRESSURE CHRONIC ULCER OTH PRT UNSP FOOT W UNSP SEVERITY Qualifiers: Diabetic foot ulcer location: toe Diabetes mellitus type: type 2 Laterality: left Non-pressure ulcer stage: with muscle involvement without evidence of necrosis Qualified Code(s): E11.621 - Type 2 diabetes mellitus with foot ulcer; L97.525 - Non-pressure chronic ulcer of other part of left foot with muscle involvement without evidence of necrosis (3) Osteomyelitis Code(s): M86.9 - OSTEOMYELITIS, UNSPECIFIED Assessment/Plan Current Medications Generic Name Dose Route Start Last Admin Trade Name Freq PRN Reason Stop Dose Admin Acetaminophen 650 mg 02/19/19 08:10 02/23/19 03:24 Tylenol - PO 650 mg Q4H PRN Administration PAIN OR FEVER Aspirin 81 mg 02/19/19 10:00 02/22/19 09:45 Asa - PO 81 mg DAILY [facility] Administration Atorvastatin Calcium 40 mg 02/19/19 22:00 02/22/19 21:44 Lipitor - PO 40 mg HS [facility] Administration Carvedilol 6.25 mg 02/19/19 10:00 02/23/19 09:26 Coreg - PO Not Given BID [facility] Clopidogrel Bisulfate 75 mg 02/19/19 10:00 02/23/19 09:26 Plavix - PO 75 mg DAILY [facility] Administration Heparin Sodium (Porcine) 5,000 unit 02/19/19 14:00 02/23/19 14:27 Heparin - SQ 5,000 unit TID [facility] Administration Cefepime HCl 1 gm/ Dextrose 100 mls @ 200 mls/hr 02/19/19 10:00 02/23/19 13: 12 IVPB 200 mls/hr Q8H-IV [facility] Administration Protocol Metronidazole 500 mg in 100 mls @ 100 mls/hr 02/19/19 10:00 02/23/19 14:17 Flagyl 500mg Premixed Ivpb - IVPB 100 mls/hr Q8H-IV [facility] Administration Vancomycin HCl 1,250 mg/ 250 mls @ 250 mls/2 hr 02/23/19 15:15 Dextrose IVPB Q24H [facility] Protocol Insulin Aspart 1 vial 02/19/19 11:00 02/23/19 12:28 Novolog Vial Sliding Scale - SQ 2 units ACHS [facility] Administration Protocol Insulin Detemir 35 units 02/19/19 22:00 02/22/19 21:43 Levemir Vial SQ 35 units HS [facility] Administration Lisinopril 5 mg 02/21/19 14:30 02/23/19 09:23 Prinivil PO 5 mg DAILY [facility] Administration Impression 1. MARIEL 2. DM 3. osteo 4. hx CHF 5. venous insufficiency Plan - cont deloris - renal function stable - can see in office - abx per primary team - discussed with pt
--- NOTE | 2019-02-23 15:33 | PATH ---
Surgical Pathology Report Patient Name: OFELIA NDIAYE [facility]. Rec. #: [id number] /Age/Gender: 1960 (Age: 58) / M Account: [id number] Location: [address] [place] [address]/[facility] Taken: 02/18/2019 Received: 02/19/2019 Reported: 02/23/2019 Physicians: Guadalupe Yusuf M.D. Specimen(s) Received A: LEFT 5TH TOE AND METATARSAL B: LEFT 5TH METATARSAL HEAD C: LEFT 5TH PROXIMAL MARGIN Clinical History Left foot gas gangrene 5th toe Final Diagnosis A. LEFT 5TH TOE AND METATARSAL, AMPUTATION: AMPUTATED TOE WITH GANGRENOUS NECROSIS AND ABSCESS FORMATION, FOCALLY INVOLVING SKIN AND SOFT TISSUE MARGIN. BONE WITH ACUTE OSTEOMYELITIS. B. LEFT 5TH METATARSAL HEAD, RESECTION: BONE WITH ACUTE OSTEOMYELITIS. C. LEFT 5TH PROXIMAL MARGIN, RESECTION: BONE WITH ACUTE OSTEOMYELITIS. Electronically Signed Augie Louise M.D. Gross Description A. Received in formalin, labeled "left fifth toe and metatarsal", and consists of an amputated toe measuring 7.0 x 3.0 x 2.0 cm. The skin surface shows focal ulceration with dark brown necrotic change measuring 3 cm in greatest dimension. Senior Clinical Data Manager sections are submitted in 4 cassettes. Cassette1: Skin and soft tissue from ulcerated area, margin inked blue; 2, 3: Bone from the toe; 4: Additional bone section for decalcification. B. Received in formalin, labeled "left fifth metatarsal head" is a portion of bone with articular surface at one end, measuring 2.5 x 1.4 x 1.4cm. The bone is trisected and show yellow and hard trabecular bone. The bone is decalcified and abrasives sales representative sections are submitted in two cassettes. C. Received in formalin, labeled "left 5th proximal margin" is a portion of bone measuring 1.3 x 1.0 x 0.4 cm. The specimen is entirely submitted in one cassette for decalcification. __ KWS/02/19/2019 sulki/02/19/2019
--- NOTE | 2019-02-23 15:36 | PN ---
Progress Note (short form) - Note Progress Note: Podiatry F/U: Seen/evaluated at bedside NAD. Pain mild to left foot, well controlled. Denies F/V/N/C/SOB/CP. Afebrile. S/p L fifth digit amputation and partial fifth ray resection for severe DFI. JADE: L foot: post-surgical fifth ray diabetic ulcer underlying granular base with moderate fibrotic tissue, some slough noted plantarly along flap, no purulent drainage, no fluctuance, no soft tissue crepitus, no streaking cellulitis, no signs of active infection. Mild tenderness elicited on palpation. OR Cx: MRSA Imp: 58 year old diabetic male s/p left fifth digit amputation and partial fifth ray resection 1. IV abx per infectious disease 2. Saline wet to dry applied to left foot 3. Minimal WB L foot with surgical shoe 4. Will need fpc IV abx 5. Will need wound vac applied 3x/week in SNF 6. Will follow. May need to perform bedside debridement of left foot tomorrow. Filipe Santoyo DPM
--- NOTE | 2019-02-23 18:24 | PN ---
Physical Exam: SUBJECTIVE: Patient seen and examined. He denies pain. He also denies chest pain , shortness of breath, nausea, vomiting. OBJECTIVE: Vital Signs Period Temp Pulse Resp BP Sys/Dominguez Pulse Ox Last 24 Hr 98.1 F-98.7 F 80-85 18-18 108-134/66-83 98 GENERAL: The patient is awake, alert, and fully oriented, in no acute distress. HEAD: Normal with no signs of trauma. EYES: PERRL, extraocular movements intact ENT: Ears normal, nares patent, moist mucous membranes. NECK: Trachea midline, full range of motion LUNGS: CTAB, no accessory muscle use. HEART: Regular rate and rhythm, no murmur ABDOMEN: Soft, nontender, nondistended, normoactive bowel sounds EXTREMITIES: Left 5th digit amputation with open wound on distal and lateral aspects of foot with no drainage. No erythema surrounding. Right 1st toe amputation with closure scar. 2 plantar areas of erythema. NEUROLOGICAL: Normal speech PSYCH: Normal mood SKIN: Warm, dry, normal turgor Laboratory Results - last 24 hr 02/22/19 02/23/19 02/23/19 21:42 06:25 06:50 POC Glucometer 246 166 C-Reactive Protein 4.1 H 02/23/19 02/23/19 12:14 17:31 POC Glucometer 155 131 C-Reactive Protein Active Medications Generic Name Dose Route Start Last Admin Trade Name Freq PRN Reason Stop Dose Admin Acetaminophen 650 mg 02/19/19 08:10 02/23/19 15:27 Tylenol - PO 650 mg Q4H PRN Administration PAIN OR FEVER Aspirin 81 mg 02/19/19 10:00 02/22/19 09:45 Asa - PO 81 mg DAILY HERON Administration Atorvastatin Calcium 40 mg 02/19/19 22:00 02/22/19 21:44 Lipitor - PO 40 mg HS HERON Administration Carvedilol 6.25 mg 02/19/19 10:00 02/23/19 09:26 Coreg - PO Not Given BID HERON Clopidogrel Bisulfate 75 mg 02/19/19 10:00 02/23/19 09:26 Plavix - PO 75 mg DAILY HERON Administration Heparin Sodium (Porcine) 5,000 unit 02/19/19 14:00 02/23/19 14:27 Heparin - SQ 5,000 unit TID HERON Administration Cefepime HCl 1 gm/ Dextrose 100 mls @ 200 mls/hr 02/19/19 10:00 02/23/19 13: 12 IVPB 200 mls/hr Q8H-IV HERON Administration Protocol Metronidazole 500 mg in 100 mls @ 100 mls/hr 02/19/19 10:00 02/23/19 14:17 Flagyl 500mg Premixed Ivpb - IVPB 100 mls/hr Q8H-IV HERON Administration Vancomycin HCl 1,250 mg/ 250 mls @ 166.667 mls/hr 02/23/19 15:15 Dextrose IVPB Q24H HERON Protocol Insulin Aspart 1 vial 02/19/19 11:00 02/23/19 17:00 Novolog Vial Sliding Scale - SQ Not Given ACHS HERON Protocol Insulin Detemir 35 units 02/19/19 22:00 02/22/19 21:43 Levemir Vial SQ 35 units HS HERON Administration Lisinopril 5 mg 02/21/19 14:30 02/23/19 09:23 Prinivil PO 5 mg DAILY HERON Administration ASSESSMENT/PLAN: Mr. Cobian is a 58 y/o male with DM, HTN, and venous insufficiency who presents from Dr. Santoyo's office for amputation of the left 5th digit. Imaging showed osteomyelitis. POD 5 s/p amputation. #left 5th toe osteomyelitis POD 5 s/p 5th toe amputation Pt tachycardic at presentation, afebrile, no leukocytosis. MRI positive for osteomyelitis. -wound culture- MRSA -blood culture prelim- negative -podiatry following- dressing change daily with wet to dry and saline rinse, wound vac 3x/week in SNF -ID following- vanc level in range -Vancomycin day 5 -Cefepime day 6 -Flagyl day 6 -Tylenol PRN pain -PT #peripheral vascular disease s/p b/l revascularization this year -vascular following -ASA -Plavix -continue atorvastatin #MARIEL, resolved Cr 1.5-->1.1. Renal U/S normal. -nephrology following -avoid NSAIDS and nephrotoxic agents #DM A1C 8.4. On Levemir 60U at home. BGs well-controlled now on Levemir. -Levemir 35U -SSI -BGM #HTN Initially held home carvedilol -home carvedilol DVT Ppx heparin FEN PO fluids monitor Cr diabetic/sodium diet Dispo SNF placement Visit type - Emergency Visit Emergency Visit: Yes ED Registration Date: 02/17/19 Care time: The patient presented to the Emergency Department on the above date and was hospitalized for further evaluation of their emergent condition. - New Patient This patient is new to me today: No - Critical Care Critical Care patient: No - Discharge Referral Referred to [facility] Med [facility] No ATTENDING PHYSICIAN STATEMENT I saw and evaluated the patient. I reviewed the resident's note and discussed the case with the resident. I agree with the resident's findings and plan as documented. SUBJECTIVE: OBJECTIVE: ASSESSMENT AND PLAN:
[2019-02-23] MEDS: VANCOMYCIN HCL 1,250 MG in DEXTROSE 5%-WATER - 250 ML IVPB SCH (19:55)
[2019-02-23] MEDS: INSULIN (LEVEMIR) 100 UNITS/ML UNITS SQ SCH (22:26)
[2019-02-23] MEDS: ATORVASTATIN CA 40 MG TABLET (FP) PO SCH (22:26)
[2019-02-24] MEDS ORDERED: DEXTROSE 5%-WATER 100 ML IVPB ONE ×3 (01:34→17:27)
[2019-02-24] MEDS ORDERED: CEFEPIME HCL 1 GM VIAL (RESTRICTED TO ID) ONE ×3 (01:34→17:27)
[2019-02-24] MEDS: CEFEPIME 1 GM in DEXTROSE 5%-WATER 100 ML IVPB SCH ×3 (03:18→19:03)
[2019-02-24] MEDS: HEPARIN NA (PORCINE) 5,000 UNITS/ML 1ML VIAL SQ SCH ×3 (06:49→22:28)
[2019-02-24] MEDS: INSULIN SLIDING SCALE (NOVOLOG) 1 VIAL SQ SCH ×4 (06:49→22:32)
--- NOTE | 2019-02-24 09:54 | PN ---
Physical Exam: SUBJECTIVE: Patient seen and examined. He reports some foot pain following PT yesterday but is resolved. He also reports sweats at night. He denies fever, chills, chest pain, shortness of breath, n/v/d or calf pain. OBJECTIVE: Vital Signs Period Temp Pulse Resp BP Sys/Dominguez Pulse Ox Last 24 Hr 97.9 F-98.3 F 77-88 18-20 128-152/76-87 98 GENERAL: The patient is awake, alert, and fully oriented, in no acute distress. HEAD: Normal with no signs of trauma. EYES: PERRL, extraocular movements intact ENT: Ears normal, nares patent, moist mucous membranes. NECK: Trachea midline, full range of motion LUNGS: CTAB, no accessory muscle use. HEART: Regular rate and rhythm, no murmur ABDOMEN: Soft, nontender, nondistended, normoactive bowel sounds EXTREMITIES: Left 5th digit amputation with partial ray resection with open wound on distal and lateral aspects of foot with no drainage. No erythema surrounding. Right 1st toe amputation with healed closure scar. NEUROLOGICAL: Normal speech PSYCH: Normal mood SKIN: Warm, dry, normal turgor Laboratory Results - last 24 hr 02/23/19 02/23/19 02/23/19 12:14 17:31 22:21 POC Glucometer 155 131 278 02/24/19 06:47 POC Glucometer 251 Active Medications Generic Name Dose Route Start Last Admin Trade Name Freq PRN Reason Stop Dose Admin Acetaminophen 650 mg 02/19/19 08:10 02/23/19 15:27 Tylenol - PO 650 mg Q4H PRN Administration PAIN OR FEVER Aspirin 81 mg 02/19/19 10:00 02/22/19 09:45 Asa - PO 81 mg DAILY HERON Administration Atorvastatin Calcium 40 mg 02/19/19 22:00 02/23/19 22:26 Lipitor - PO 40 mg HS HERON Administration Carvedilol 6.25 mg 02/19/19 10:00 02/23/19 22:26 Coreg - PO 6.25 mg BID HERON Administration Clopidogrel Bisulfate 75 mg 02/19/19 10:00 02/23/19 09:26 Plavix - PO 75 mg DAILY HERON Administration Heparin Sodium (Porcine) 5,000 unit 02/19/19 14:00 02/24/19 06:49 Heparin - SQ 5,000 unit TID HERON Administration Cefepime HCl 1 gm/ Dextrose 100 mls @ 200 mls/hr 02/19/19 10:00 02/24/19 03: 18 IVPB 200 mls/hr Q8H-IV HERON Administration Protocol Metronidazole 500 mg in 100 mls @ 100 mls/hr 02/19/19 10:00 02/24/19 04:48 Flagyl 500mg Premixed Ivpb - IVPB 100 mls/hr Q8H-IV HERON Administration Vancomycin HCl 1,250 mg/ 250 mls @ 166.667 mls/hr 02/23/19 15:15 02/23/19 19: 55 Dextrose IVPB 166.667 mls/hr Q24H HERON Administration Protocol Insulin Aspart 1 vial 02/19/19 11:00 02/24/19 06:49 Novolog Vial Sliding Scale - SQ Not Given ACHS HERON Protocol Insulin Detemir 35 units 02/19/19 22:00 02/23/19 22:26 Levemir Vial SQ 35 units HS HERON Administration Lisinopril 5 mg 02/21/19 14:30 02/23/19 09:23 Prinivil PO 5 mg DAILY HERON Administration ASSESSMENT/PLAN: Mr. Cobian is a 58 y/o male with DM, HTN, and venous insufficiency who presents from Dr. Santoyo's office for amputation of the left 5th digit. Imaging showed osteomyelitis. POD 6 s/p amputation and partial ray resection. #left 5th toe osteomyelitis POD 6 s/p 5th toe amputation and partial ray resection Pt tachycardic at presentation, afebrile, no leukocytosis. MRI positive for osteomyelitis. Wound culture positive for MRSA. Blood culture negative. -podiatry following- possibly will debride at bedside today; dressing change daily with wet to dry and saline rinse, wound vac 3x/week in SNF -ID following- vanc level in range -Vancomycin day 6 -Cefepime day 7 -Flagyl day 7 -Tylenol PRN pain -PT #peripheral vascular disease s/p b/l revascularization this year -vascular following -ASA -Plavix -continue atorvastatin #MARIEL, resolved Cr 1.5-->1.1. Renal U/S normal. -nephrology following -avoid NSAIDS and nephrotoxic agents #DM A1C 8.4. On Levemir 60U at home. BG 131-278 overnight. Pt received 2 units and refused 2 other times. -Levemir 35U -SSI -BGM #HTN Initially held home carvedilol -home carvedilol DVT Ppx heparin FEN PO fluids monitor Cr diabetic/sodium diet Dispo awaiting SNF placement Visit type - Emergency Visit Emergency Visit: Yes ED Registration Date: 02/17/19 Care time: The patient presented to the Emergency Department on the above date and was hospitalized for further evaluation of their emergent condition. - New Patient This patient is new to me today: No - Critical Care Critical Care patient: No - Discharge Referral Referred to [facility] Med P.C.: No ATTENDING PHYSICIAN STATEMENT I saw and evaluated the patient. I reviewed the resident's note and discussed the case with the resident. I agree with the resident's findings and plan as documented. SUBJECTIVE: OBJECTIVE: ASSESSMENT AND PLAN:
[2019-02-24] MEDS: ASPIRIN 81 MG CHEWABLE TABLETS PO SCH (10:05)
[2019-02-24] MEDS: CLOPIDOGREL BISULFATE 75 MG TABLET (FP) PO SCH (10:05)
[2019-02-24] MEDS: CARVEDILOL 6.25 MG TABLET (FP) PO SCH ×2 (10:05→22:28)
[2019-02-24] MEDS: LISINOPRIL 5 MG TABLET (FP) PO SCH (10:05)
--- NOTE | 2019-02-24 12:08 | PN ---
Teaching Attending Note Name of Resident: Betty Millan ATTENDING PHYSICIAN STATEMENT I saw and evaluated the patient. I reviewed the resident's note and discussed the case with the resident. I agree with the resident's findings and plan as documented with exceptions below. SUBJECTIVE: Patient seen and examined. No new complaints or foot pain. OBJECTIVE: Vital Signs Period Temp Pulse Resp BP Sys/Dominguez Pulse Ox Last 24 Hr 97.9 F-98.2 F 77-88 18-18 128-152/76-87 98 Intake & Output 02/21/19 02/22/19 02/23/19 02/24/19 23:59 23:59 23:59 23:59 Intake Total 1450 1600 975 480 Output Total 2200 700 1725 1550 Balance -750 900 -750 -1070 Weight 185 lb 5 oz General: sitting in bed in no acute distress Chest: CTAB, no rales or wheezing Abdomen:Soft, NT Extremities: Left 5th toe amputation, wound area with large 5x4 cm area with dried blood on base, bogginess below the wound with no active bleeding or discharge, almost resolved surrounding swelling/erythema, hyperpigmentation present on dorsum of left foot Home Medications Medication Instructions Recorded Aspirin [ASA -] 81 mg PO DAILY 12/23/18 Carvedilol [Coreg] 6.25 mg PO DAILY 12/23/18 Clopidogrel Bisulfate [Clopidogrel] 75 mg PO DAILY 12/23/18 Atorvastatin Ca [Lipitor] 40 mg PO HS tablet 12/29/18 Insulin (Levemir) [Levemir Vial] 10 units SQ AM units 12/29/18 Lisinopril [Prinivil] 5 mg PO DAILY tablet 12/29/18 Active Medications Acetaminophen (Tylenol -) 650 mg PO Q4H PRN PRN Reason: PAIN OR FEVER Last Admin: 02/23/19 15:27 Dose: 650 mg Aspirin (Asa -) 81 mg PO DAILY [facility] Last Admin: 02/24/19 10:05 Dose: 81 mg Atorvastatin Calcium (Lipitor -) 40 mg PO HS [facility] Last Admin: 02/23/19 22:26 Dose: 40 mg Carvedilol (Coreg -) 6.25 mg PO BID [facility] Last Admin: 02/24/19 10:05 Dose: 6.25 mg Clopidogrel Bisulfate (Plavix -) 75 mg PO DAILY [facility] Last Admin: 02/24/19 10:05 Dose: 75 mg Heparin Sodium (Porcine) (Heparin -) 5,000 unit SQ TID HERON Last Admin: 02/24/19 06:49 Dose: 5,000 unit Cefepime HCl 1 gm/ Dextrose 100 mls @ 200 mls/hr IVPB Q8H-IV HERON; Protocol Last Admin: 02/24/19 10:05 Dose: 200 mls/hr Metronidazole (Flagyl 500mg Premixed Ivpb -) 500 mg in 100 mls @ 100 mls/hr IVPB Q8H-IV HERON Last Admin: 02/24/19 11:33 Dose: 100 mls/hr Vancomycin HCl 1,250 mg/ (Dextrose) 250 mls @ 166.667 mls/hr IVPB Q24H [facility]; Protocol Last Admin: 02/23/19 19:55 Dose: 166.667 mls/hr Insulin Aspart (Novolog Vial Sliding Scale -) 1 vial SQ ACHS [facility]; Protocol Last Admin: 02/24/19 11:37 Dose: Not Given Insulin Detemir (Levemir Vial) 35 units SQ HS [facility] Last Admin: 02/23/19 22:26 Dose: 35 units Lisinopril (Prinivil) 5 mg PO DAILY [facility] Last Admin: 02/24/19 10:05 Dose: 5 mg Laboratory Results - last 24 hr 02/23/19 02/23/19 02/24/19 17:31 22:21 06:47 POC Glucometer 131 278 251 02/24/19 11:35 POC Glucometer 170 Microbiology 02/20/19 08:00 Foot - Left Gram Stain - Final 02/20/19 08:00 Foot - Left Wound Culture - Final S Aureus 02/17/19 14:00 Blood - Peripheral Venous Blood Culture - Final NO GROWTH AFTER 5 DAYS INCUBATION 02/17/19 14:21 Blood - Peripheral Venous Blood Culture - Final NO GROWTH AFTER 5 DAYS INCUBATION 02/19/19 18:30 Foot - Left Gram Stain - Final 02/19/19 18:30 Foot - Left Wound Culture - Final NO GROWTH AFTER 48 HOURS INCUBATION ASSESSMENT AND PLAN: 58 yom with PMHx off IDDM, poorly controlled, PVD s/p bilateral revascularization, amputation right great toe, Peripheral neuropathy, gastroparesis, sent with Left 5th toe osteomyelitis/gas gangrene s/p amputation -Left foot gas gangrene s/p left 5th ray amputation 02/18/2019 -MARIEL, suspect from hyperglycemia, hypovolumia, resolved -IDDM, poorly controlled -PVD s/p bilateral revascularization/amputation right great toe -Peripheral neuropathy -HTN Plan: Wound cx with MRSA. ID/podiatry input noted Follow up for bedside debridement. Anticipate PICC with emt intermediate IV vanco. Surgical path with acute osteomyelitis. For wound vac at SNF, discussed with social work. Renal function stable, ACEi resumed Levroland, ISS. A1c 8.4 Continue ASA/Plavix/statin. DVTPPX heparin dispo anticipate SNF in 24 hours with PICC/IV abx pending podiatry input and possible additional intervention needs. Discussed with patient and social work.
[2019-02-24] MEDS ORDERED: INSULIN (NOVOLOG) ASPART 100 UNITS/ML 10ML VIAL ONE (12:17)
[2019-02-24 16:57] VITALS: BMI 24.4
--- NOTE | 2019-02-24 17:09 | PN ---
Progress Note (short form) - Note Progress Note: Podiatry F/U: Seen/evaluated at bedside NAD. Pain controlled, denies F/V/N/C/SOB/CP. Afebrile. S/p L fifth digit amputation and partial fifth ray resection for gas- forming diabetic infection. JADE: L foot: post-surgical diabetic ulcer fifth ray with fibrogranular base, moderate slough with liquefactive tissue noted at the proximal aspect of the surgical site, no purulent drainage, no soft tissue crepitus, no fluctuance, no periwound erythema, no streaking cellulitis, no signs of active infection. Mild tenderness elicited on palpation. Imp: 58 year old diabetic male with left fifth ray diabetic ulcer s/p 5th digit amputation Informed consent obtained. Bedside debridement performed. Excisional bedside debridement performed of the left foot diabetic post-surgical ulcer to the level of skin and subcutaneous tissue using sterile #15 blade scalpel and forceps. All devitalized and liquefactive tissue removed and healthy granular tissue persisted. The patient tolerated the procedure well without complications. Saline wet to dry applied to the left foot. Minimal WB L foot. D/C to SNF tomorrow. Will see in wound healing center upon discharge . Podiatry stable for discharge. Filipe Santoyo DPM
[2019-02-24] MEDS: VANCOMYCIN HCL 1,250 MG in DEXTROSE 5%-WATER - 250 ML IVPB SCH (17:49)
[2019-02-24] MEDS: ATORVASTATIN CA 40 MG TABLET (FP) PO SCH (22:28)
[2019-02-24] MEDS: INSULIN (LEVEMIR) 100 UNITS/ML UNITS SQ SCH (22:29)
[2019-02-25] MEDS ORDERED: DEXTROSE 5%-WATER 100 ML IVPB ONE ×3 (02:21→18:09)
[2019-02-25] MEDS ORDERED: CEFEPIME HCL 1 GM VIAL (RESTRICTED TO ID) ONE ×3 (02:21→18:09)
[2019-02-25] MEDS: CEFEPIME 1 GM in DEXTROSE 5%-WATER 100 ML IVPB SCH ×3 (02:50→20:16)
[2019-02-25] MEDS: HEPARIN NA (PORCINE) 5,000 UNITS/ML 1ML VIAL SQ SCH ×3 (06:31→21:52)
[2019-02-25] MEDS: INSULIN SLIDING SCALE (NOVOLOG) 1 VIAL SQ SCH ×4 (06:31→21:55)
[2019-02-25] MEDS: ASPIRIN 81 MG CHEWABLE TABLETS PO SCH (10:28)
[2019-02-25] MEDS: CLOPIDOGREL BISULFATE 75 MG TABLET (FP) PO SCH (10:28)
[2019-02-25] MEDS: CARVEDILOL 6.25 MG TABLET (FP) PO SCH ×2 (10:29→21:55)
[2019-02-25] MEDS: LISINOPRIL 5 MG TABLET (FP) PO SCH (10:29)
--- NOTE | 2019-02-25 12:52 | PN ---
Progress Note (short form) - Note Progress Note: pod #7 s/p amputation fifth toe Vital Signs Period Temp Pulse Resp BP Sys/Dominguez Pulse Ox Last 24 Hr 98.1 F-99.0 F 80-85 18-20 105-161/62-88 98-99 cor-rrr lungs clear foot with minimal erythema no drainage CBC, BMP 02/22/19 07:46 02/22/19 07:46 Microbiology 02/20/19 08:00 Foot - Left Gram Stain - Final 02/20/19 08:00 Foot - Left Wound Culture - Final S Aureus 02/17/19 14:00 Blood - Peripheral Venous Blood Culture - Final NO GROWTH AFTER 5 DAYS INCUBATION 02/17/19 14:21 Blood - Peripheral Venous Blood Culture - Final NO GROWTH AFTER 5 DAYS INCUBATION 02/19/19 18:30 Foot - Left Gram Stain - Final 02/19/19 18:30 Foot - Left Wound Culture - Final NO GROWTH AFTER 48 HOURS INCUBATION a/p pod #7 s/p amputation of the fifth toe/ray amputation-path c/w osteomyelitis- will switch to vanocmycin alone when he leaves for snf vanco trough, esr, crp all ordered for this afternoon plan 6 weeks vancomycin-should have weekly labs and vancomycin trough,, esr, crp while on iv antiibotics- 5 more weeks of vancomycin poorly controlled DM PVD pen allergy mariel I can see him at the wound care center when he comes for f/u with dr arroyo Problem List - Problems (1) Diabetic foot ulcer Code(s): E11.621 - TYPE 2 DIABETES MELLITUS WITH FOOT ULCER; L97.509 - NON- PRESSURE CHRONIC ULCER OTH PRT UNSP FOOT W UNSP SEVERITY Qualifiers: Diabetic foot ulcer location: toe Diabetes mellitus type: type 2 Laterality: left Non-pressure ulcer stage: with muscle involvement without evidence of necrosis Qualified Code(s): E11.621 - Type 2 diabetes mellitus with foot ulcer; L97.525 - Non-pressure chronic ulcer of other part of left foot with muscle involvement without evidence of necrosis (2) Osteomyelitis Code(s): M86.9 - OSTEOMYELITIS, UNSPECIFIED (3) PVD (peripheral vascular disease) Code(s): I73.9 - PERIPHERAL VASCULAR DISEASE, UNSPECIFIED (4) MARIEL (acute kidney injury) Code(s): N17.9 - ACUTE KIDNEY FAILURE, UNSPECIFIED (5) Penicillin allergy Code(s): Z88.0 - ALLERGY STATUS TO PENICILLIN
--- NOTE | 2019-02-25 13:17 | PN ---
Teaching Attending Note Name of Resident: Betty Millan ATTENDING PHYSICIAN STATEMENT I saw and evaluated the patient. I reviewed the resident's note and discussed the case with the resident. I agree with the resident's findings and plan as documented with exceptions below. SUBJECTIVE: Patient seen and examined. Feeling better, no complaints. OBJECTIVE: Vital Signs Period Temp Pulse Resp BP Sys/Dominguez Pulse Ox Last 24 Hr 98.1 F-99.0 F 80-85 18-20 105-161/62-88 98-99 Intake & Output 02/22/19 02/23/19 02/24/19 02/25/19 23:59 23:59 23:59 23:59 Intake Total 7096 591 2953 680 Output Total 700 1725 2950 750 Balance 900 -750 -930 -70 Weight 185 lb General: sitting in bed in no acute distress Chest: CTAb, no rales or wheezing CVS:S1S2 regular Abdomen: soft, NT, ND Extremities: left foot wound with well healing base, no active purulence or discharge, improved surrounding bogginess, no tenderness noted, improved swelling/erythema Home Medications Medication Instructions Recorded Aspirin [ASA -] 81 mg PO DAILY 12/23/18 Carvedilol [Coreg] 6.25 mg PO DAILY 12/23/18 Clopidogrel Bisulfate [Clopidogrel] 75 mg PO DAILY 12/23/18 Atorvastatin Ca [Lipitor] 40 mg PO HS tablet 12/29/18 Lisinopril [Prinivil] 5 mg PO DAILY tablet 12/29/18 Acetaminophen [Tylenol .Regular 650 mg PO Q4H PRN tablet 02/25/19 Strength -] Insulin (Levemir) [Levemir Vial] 35 units SQ HS units 02/25/19 Vancomycin HCl 1,250 mg IVPB Q24H vial 02/25/19 Active Medications Acetaminophen (Tylenol -) 650 mg PO Q4H PRN PRN Reason: PAIN OR FEVER Last Admin: 02/23/19 15:27 Dose: 650 mg Aspirin (Asa -) 81 mg PO DAILY [facility] Last Admin: 02/25/19 10:28 Dose: 81 mg Atorvastatin Calcium (Lipitor -) 40 mg PO HS [facility] Last Admin: 02/24/19 22:28 Dose: 40 mg Carvedilol (Coreg -) 6.25 mg PO BID [facility] Last Admin: 02/25/19 10:29 Dose: 6.25 mg Clopidogrel Bisulfate (Plavix -) 75 mg PO DAILY [facility] Last Admin: 02/25/19 10:28 Dose: 75 mg Heparin Sodium (Porcine) (Heparin -) 5,000 unit SQ TID [facility] Last Admin: 02/25/19 06:31 Dose: 5,000 unit Cefepime HCl 1 gm/ Dextrose 100 mls @ 200 mls/hr IVPB Q8H-IV HERON; Protocol Last Admin: 02/25/19 10:28 Dose: 200 mls/hr Metronidazole (Flagyl 500mg Premixed Ivpb -) 500 mg in 100 mls @ 100 mls/hr IVPB Q8H-IV HERON Last Admin: 02/25/19 11:10 Dose: 100 mls/hr Vancomycin HCl 1,250 mg/ (Dextrose) 250 mls @ 166.667 mls/hr IVPB Q24H [facility]; Protocol Last Admin: 02/24/19 17:49 Dose: 166.667 mls/hr Insulin Aspart (Novolog Vial Sliding Scale -) 1 vial SQ ACHS [facility]; Protocol Last Admin: 02/25/19 12:52 Dose: Not Given Insulin Detemir (Levemir Vial) 35 units SQ HS [facility] Last Admin: 02/24/19 22:29 Dose: 35 units Lisinopril (Prinivil) 5 mg PO DAILY [facility] Last Admin: 02/25/19 10:29 Dose: 5 mg Laboratory Results - last 24 hr 02/24/19 02/24/19 02/25/19 17:58 22:31 06:30 POC Glucometer 240 243 117 02/25/19 12:46 POC Glucometer 110 Microbiology 02/20/19 08:00 Foot - Left Gram Stain - Final 02/20/19 08:00 Foot - Left Wound Culture - Final S Aureus 02/17/19 14:00 Blood - Peripheral Venous Blood Culture - Final NO GROWTH AFTER 5 DAYS INCUBATION 02/17/19 14:21 Blood - Peripheral Venous Blood Culture - Final NO GROWTH AFTER 5 DAYS INCUBATION 02/19/19 18:30 Foot - Left Gram Stain - Final 02/19/19 18:30 Foot - Left Wound Culture - Final NO GROWTH AFTER 48 HOURS INCUBATION ASSESSMENT AND PLAN: 58 yom with PMHx off IDDM, poorly controlled, PVD s/p bilateral revascularization, amputation right great toe, Peripheral neuropathy, gastroparesis, sent with Left 5th toe osteomyelitis/gas gangrene s/p amputation -Left foot gas gangrene s/p left 5th ray amputation 02/18/2019 -MARIEL, suspect from hyperglycemia, hypovolumia, resolved -IDDM, poorly controlled -PVD s/p bilateral revascularization/amputation right great toe -Peripheral neuropathy -HTN Plan: ID/podiatry input noted s/p bedside debridement Additional 5 weeks of Vancomycin Weekly labs PICC line Wound vac 3 times as week at the SNF, social work aware Dc to SNf today if disposition arranged Discussed with patient and nursing.
[2019-02-25] MEDS ORDERED: PT OWN MED DRAWER 7, Y5N ONE (18:09)
[2019-02-25] MEDS: VANCOMYCIN HCL 1,250 MG in DEXTROSE 5%-WATER - 250 ML IVPB SCH (18:21)
--- NOTE | 2019-02-25 19:25 | DS ---
Physical Exam: SUBJECTIVE: Patient seen and examined. He reports minor foot pain that occurs with activity and night sweats. He denies fever, chills, n/v/d, shortness of breath, or chest pain. OBJECTIVE: Vital Signs Period Temp Pulse Resp BP Sys/Dominguez Pulse Ox Last 24 Hr 98.1 F-99.0 F 74-85 20-20 105-161/62-88 98-99 PHYSICAL EXAM GENERAL: The patient is awake, alert, and fully oriented, in no acute distress. HEAD: Normal with no signs of trauma. EYES: PERRL, extraocular movements intact ENT: Ears normal, nares patent, moist mucous membranes. NECK: Trachea midline, full range of motion LUNGS: CTAB, no accessory muscle use. HEART: Regular rate and rhythm, no murmur ABDOMEN: Soft, nontender, nondistended, normoactive bowel sounds EXTREMITIES: Left 5th digit amputation with partial ray resection with open wound [id number] on distal and lateral aspects of foot with no drainage. No erythema surrounding. Mild edema that is improving. Right 1st toe amputation with healed closure scar. NEUROLOGICAL: Normal speech PSYCH: Normal mood SKIN: Warm, dry, normal turgor LABS Laboratory Results - last 24 hr 02/24/19 02/25/19 02/25/19 22:31 06:30 12:46 ESR POC Glucometer 243 117 110 C-Reactive Protein Vancomycin Pre-Dose 02/25/19 02/25/19 02/25/19 16:35 16:35 16:35 ESR 86 H POC Glucometer C-Reactive Protein 2.0 H Vancomycin Pre-Dose 9.3 L 02/25/19 18:25 ESR POC Glucometer 177 C-Reactive Protein Vancomycin Pre-Dose HOSPITAL COURSE: Mr. Cobian is a 58 y/o male with DM, HTN, and venous insufficiency who presents from Dr. Santoyo's office for amputation of the left 5th digit. He was tachycardic, afebrile, and had no leukocytosis at presentation. MRI showed osteomyelitis. Left 5th toe amputation and partial ray resection was performed. Wound culture was positive for MRSA. Vancomycin, cefepime, and flagyl was given for 7 days. PICC line was placed to receive out pt vancomycin for 5 weeks and was discharged to SNF for PT. He is to follow up with podiatry and ID at wound care. Pt also has hx peripheral vascular disease s/p b/l revascularization this year. Vascular surgery was consulted and recommended out pt arterial duplex. Pt also presented with MARIEL. Cr 1.5-->1.1 and resolved. Renal U/S is normal. Recommended out pt follow up. Pt has hx of hard to control DM2 and is on insulin. Home Levemir dose was adjusted. He is to follow up with PCP to follow A1C of 8.4. Date of Admission:02/17/19 Date of Discharge: 02/25/19 Minutes to complete discharge: 35 Discharge Summary Problems reviewed: Yes Reason For Visit: DIABETES MELLI,ULCER OF FOOT,PERIPHERAL VASCULAR D Current Active Problems Diabetes (Acute) Diabetic foot ulcer (Acute) Foot ulcer (Acute) Hyperlipidemia (Acute) Insulin dependent diabetes mellitus (Acute) Osteomyelitis (Acute) Wound, open, foot (Acute) PVD (peripheral vascular disease) (Chronic) Penicillin allergy (Chronic) Condition: Stable - Instructions Diet, Activity, Other Instructions: Hospital visit: You were admitted to the hospital for amputation of your toe. You were treated with antibiotics after the surgery for the infection. [facility] and to finish your antibiotics. Medications: Continue your home medications. Vancomycin for additional 5 weeks. Follow up: Weekly labs CBC, BMP, LFTs and vancomycin trough, ESR, CRP while on iv antiibotics- 5 more weeks of vancomycin Dr. Santoyo, podiatry, on March 03. Call his office to schedule/ confirm appointment. Dr. Andrade, infectious disease, in 1 week at the wound care clinic (located on 5th floor of [facility]) Dr. Alvarado, vascular surgery, in 1-[address] Bush, nephrology, in 1 month to check your kidney function. Primary care after discharge from jail facility. If you do not have a primary care doctor, you can see Dr. Millan at the [facility]. Diet: Your A1C was elevated (8.4%). You should eat a diet low in sugar and carbohydrates. Keeping a good diet will help with your foot infections. Exercise: Follow instructions given by physical therapy. Other instructions: Take your antibiotics to completion. Return to the emergency room if your foot becomes very painful, has significant drainage or bleeding, is hot and red, or you have a fever above 101. Facility instructions: Wound vac 3x week Saline wet to dry dressing on foot Minimal weight bearing with surgical shoe Insulin sliding scale as per faculty protocol Referrals: Jorge Bains MD [Staff Physician] - (Dr. Millan) Austin Santoyo MD [Staff Physician] - Irais Andrade MD [Staff Physician] - Nicholas Bush MD [Staff Physician] - Brandon Alvarado MD [Staff Physician] - Disposition: CARE HOME FACILITY - Home Medications Comprehensive Discharge Medication List: Ambulatory Orders Aspirin [ASA -] 81 mg PO DAILY 12/23/18 Carvedilol [Coreg] 6.25 mg PO DAILY 12/23/18 Clopidogrel Bisulfate [Clopidogrel] 75 mg PO DAILY 12/23/18 Atorvastatin Ca [Lipitor] 40 mg PO HS tablet 12/29/18 Lisinopril [Prinivil] 5 mg PO DAILY tablet 12/29/18 Acetaminophen [Tylenol .Regular Strength -] 650 mg PO Q4H PRN tablet 02/25/19 Insulin (Levemir) [Levemir Vial] 35 units SQ HS units 02/25/19 Vancomycin HCl 1,250 mg IVPB Q24H vial 02/25/19 This patient is new to me today: No Emergency Visit: Yes ED Registration Date: 02/17/19 Care time: The patient presented to the Emergency Department on the above date and was hospitalized for further evaluation of their emergent condition. Critical Care patient: No - Discharge Referral Referred to [facility] Med P.C.: No ATTENDING PHYSICIAN STATEMENT I saw and evaluated the patient. I reviewed the resident's note and discussed the case with the resident. I agree with the resident's findings and plan as documented. SUBJECTIVE: OBJECTIVE: ASSESSMENT AND PLAN:
[2019-02-25] MEDS: INSULIN (LEVEMIR) 100 UNITS/ML UNITS SQ SCH (21:55)
[2019-02-25] MEDS: ATORVASTATIN CA 40 MG TABLET (FP) PO SCH (21:55)
[2019-02-26] MEDS ORDERED: CEFEPIME HCL 1 GM VIAL (RESTRICTED TO ID) ONE (02:59)
[2019-02-26] MEDS ORDERED: DEXTROSE 5%-WATER 100 ML IVPB ONE (03:00)
[2019-02-26] MEDS: CEFEPIME 1 GM in DEXTROSE 5%-WATER 100 ML IVPB SCH (03:15)
[2019-02-26] MEDS: HEPARIN NA (PORCINE) 5,000 UNITS/ML 1ML VIAL SQ SCH (05:59)
[2019-02-26] MEDS: ACETAMINOPHEN 325 MG TABLET (FP) PO PRN (06:01)
[2019-02-26] MEDS: INSULIN SLIDING SCALE (NOVOLOG) 1 VIAL SQ SCH ×2 (06:02→11:21)
[2019-02-26] MEDS: ASPIRIN 81 MG CHEWABLE TABLETS PO SCH (10:08)
[2019-02-26] MEDS: CARVEDILOL 6.25 MG TABLET (FP) PO SCH (10:08)
[2019-02-26] MEDS: LISINOPRIL 5 MG TABLET (FP) PO SCH (10:08)
[2019-02-26] MEDS: CLOPIDOGREL BISULFATE 75 MG TABLET (FP) PO SCH (10:08)
[2019-02-26 10:31] VITALS: BP 139/73; PULSE 74; TEMP 98.1
[2019-02-26] MEDS ORDERED: VANCOMYCIN HCL 1,500 MG in DEXTROSE 5%-WATER - 500 ML IVPB SCH (15:15)
--- NOTE | 2019-02-26 15:46 | PN ---
Teaching Attending Note Name of Resident: Betty Millan ATTENDING PHYSICIAN STATEMENT I saw and evaluated the patient. I reviewed the resident's note and discussed the case with the resident. I agree with the resident's findings and plan as documented with exceptions below. SUBJECTIVE: Patient seen and examined. doing well, no complaints. OBJECTIVE: Vital Signs Period Temp Pulse Resp BP Sys/Dominguez Pulse Ox Last 24 Hr 98.1 F-98.7 F 74-94 18-20 119-164/73-98 98-99 Intake & Output 02/23/19 02/24/19 02/25/19 02/26/19 23:59 23:59 23:59 23:59 Intake Total 975 2020 2440 Output Total 1725 2950 1350 800 Balance -750 -930 1090 -800 Weight 185 lb General: sitting in bed in no acute distress Chest: CTAb, no rales or wheezing CVS:S1S2 regular Abdomen: soft, NT, ND Extremities: left foot wound with well healing base, no active purulence or discharge, improved surrounding bogginess, no tenderness noted, improved swelling/erythema ASSESSMENT AND PLAN: 58 yom with PMHx off IDDM, poorly controlled, PVD s/p bilateral revascularization, amputation right great toe, Peripheral neuropathy, gastroparesis, sent with Left 5th toe osteomyelitis/gas gangrene s/p amputation -Left foot gas gangrene s/p 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 duron, increased to 1500 mg daily dc to SNF today.
== END 2019-02-26 14:05 | DRG 239 ==
LOC: JER 11:45 → JERBED 14:03 → J5S 02-18 10:32
PROVIDERS: ADMIT Internal Medicine; ATTEND Hospitalist
PROC: 0QBP0ZX Excision of Left Metatarsal, Open Approach, Diagnostic (ICD-10-PCS; 2019-02-18)
PROC: 0Y6N0ZF Detachment at Left Foot, Partial 5th Ray, Open Approach (ICD-10-PCS; principal; 2019-02-18 18:00)
PROC: 02HV33Z Insertion of Infusion Device into Superior Vena Cava, Percutaneous Approach (ICD-10-PCS; 2019-02-25)
PROC: B518ZZA Fluoroscopy of Superior Vena Cava, Guidance (ICD-10-PCS; 2019-02-25)
DX: E11.52 Type 2 diabetes mellitus with diabetic peripheral angiopathy with gangrene (principal); A48.0 Gas gangrene; L97.528 Non-pressure chronic ulcer of other part of left foot with other specified severity; L97.518 Non-pressure chronic ulcer of other part of right foot with other specified severity; M86.9 Osteomyelitis, unspecified; L03.119 Cellulitis of unspecified part of limb; N17.9 Acute kidney failure, unspecified; E11.621 Type 2 diabetes mellitus with foot ulcer; I11.0 Hypertensive heart disease with heart failure; E11.43 Type 2 diabetes mellitus with diabetic autonomic (poly)neuropathy; K31.84 Gastroparesis; E11.65 Type 2 diabetes mellitus with hyperglycemia; E86.1 Hypovolemia; R00.0 Tachycardia, unspecified; Z88.0 Allergy status to penicillin; Z89.421 Acquired absence of other right toe(s)
CPT/HCPCS: 11042; 11045; 36415; 36569; 73610-TC-LT-FY; 73630-TC-LT; 73723-LT; 76775-TC; 80048; 80053; 81003; 82436; 82962; 83036; 83735; 84100; 84133; 84300; 85025; 85610; 85651; 85730; 86140; 86850; 86900; 86901; 87040; 87070; 87186; 87205; 88305-TC; 88307-TC; 88311-TC; 93005; 93010; 94760; 97116-GP; 97161-GP; 99285-25; G0480; J0131; J1644; J7030

== ENCOUNTER 2019-03-04 10:40 | Emergency (ER) | payer OTHER ==
[2019-03-04 10:50] VITALS: TEMP 98.3; BMI 25.0
[2019-03-04] MEDS ORDERED: VANCOMYCIN HCL 1,500 MG in DEXTROSE 5%-WATER - 500 ML IVPB ONE (13:52)
[2019-03-04] MEDS ORDERED: VANCOMYCIN 1 GRAM (PRE-DOCKED) 1,000 MG/250 ML BAG IVPB ONE (14:07)
[2019-03-04] MEDS ORDERED: VANCOMYCIN 500 MG VIAL (RESTRICTED TO ID ONLY) ONE (14:07)
--- NOTE | 2019-03-04 15:45 | PDOC ---
Documentation entered by Yolanda Randolph SCRIBE, acting as scribe for Marguerite Kunz MD. Marguerite Kunz MD: This documentation has been prepared by the Tomasa clements Adrianna, SCRIBE, under my direction and personally reviewed by me in its entirety. I confirm that the documentation accurately reflects all work, treatment, procedures, and medical decision making performed by me. History of Present Illness - General Chief Complaint: Wound Stated Complaint: WOUND CARE Time Seen by Provider: 03/04/19 11:04 - History of Present Illness Initial Comments: The patient is a 58 year old male, with a past medical history of CHF (EF 35-45% ), poorly controlled IDDM, gastroparesis, neuropathy, PVD (s/p bilateral revascularization), left 5th toe amputation, and R great toe amputation (2008), who presents to the ED [facility] from the [facility] for R heel wound and left 5th toe amputation. Patient was seen in the ED 2 weeks ago for this complaint, was admitted to the hospitalist and discharged to his retirement with orders for a wound vac. Patient notes the [facility] was unable to obtain the wound vac, so he was sent to the ED for treatment. He denies any acute complaints at this time. The patient denies headache and dizziness. Denies fever, nausea, vomiting, diarrhea and constipation. Denies dysuria, frequency, urgency and hematuria. Allergies: Penicillins Surgical History: Abdominal hernia repair, cardic cath, right great toe amputation, left 5th toe amputation Social History: Former smoker (quit 20 years ago). Denies EtOH or illicit drug use Is this a multiple visit Asthma Patient?: No Past History - Past Medical History Allergies/Adverse Reactions: Allergies Allergy/AdvReac Type Severity Reaction Status Date / Time Penicillins Allergy Verified 03/04/19 10:50 Home Medications: Ambulatory Orders Aspirin [ASA -] 81 mg PO DAILY 12/23/18 Carvedilol [Coreg] 6.25 mg PO DAILY 12/23/18 Clopidogrel Bisulfate [Clopidogrel] 75 mg PO DAILY 12/23/18 Atorvastatin Ca [Lipitor] 40 mg PO HS tablet 12/29/18 Lisinopril [Prinivil] 5 mg PO DAILY tablet 12/29/18 Acetaminophen [Tylenol .Regular Strength -] 650 mg PO Q4H PRN tablet 02/25/19 Insulin (Levemir) [Levemir Vial] 35 units SQ HS units 02/25/19 Vancomycin HCl 1,500 mg IVPB Q24H vial 02/26/19 Anemia: No Asthma: No Cardiac Disorders: Yes COPD: No CHF: Yes Diabetes: Yes GI Disorders: Yes HTN: Yes Hypercholesterolemia: Yes - Surgical History Abdominal Surgery: Yes (hernia repair 2009) Cardiac Surgery: Yes (Cardiac Cath 2008) - Immunization History Immunization Up to Date: No - Psycho Social/Smoking Cessation Hx Smoking History: Never smoked Have you smoked in the past 12 months: No If you are a former smoker, when did you quit?: 20 YEARS AGO Information on smoking cessation initiated: No Hx Alcohol Use: No Drug/Substance Use Hx: No Substance Use Type: None Hx Substance Use Treatment: No Review of Systems - Review of Systems Comments:: GENERAL/CONSTITUTIONAL: No fever or chills. No weakness. HEAD, EYES, EARS, NOSE AND THROAT: No change in vision. No ear pain or discharge. No sore throat. CARDIOVASCULAR: No chest pain or shortness of breath. RESPIRATORY: No cough, wheezing, or hemoptysis. GASTROINTESTINAL: No nausea, vomiting, diarrhea or constipation. GENITOURINARY: No dysuria, frequency, or change in urination. MUSCULOSKELETAL: +Left 5th toe amputation. +Right great toe amputation. +Right heel wound. No neck or back pain. SKIN: No rash NEUROLOGIC: No headache, vertigo, loss of consciousness, or change in strength/ sensation. ENDOCRINE: No increased thirst. No abnormal weight change. HEMATOLOGIC/LYMPHATIC: No anemia, easy bleeding, or history of blood clots. ALLERGIC/IMMUNOLOGIC: No hives or skin allergy. *Physical Exam - Vital Signs Last Vital Signs Temp Pulse Resp BP Pulse Ox 98.3 F 81 18 120/72 99 03/04/19 10:48 03/04/19 10:48 03/04/19 10:48 03/04/19 10:48 03/04/19 10:48 - Physical Exam Comments: GENERAL: The patient is in no acute distress. HEAD: Normal EYES: PERRLA, EOMI, sclera anicteric, conjunctiva clear. ENT: Moist mucous membranes. NECK: Normal range of motion, supple LUNGS: Breath sounds equal, clear to auscultation bilaterally. HEART:Regular rate and rhythm, normal S1 and S2 without murmur, rub or gallop. ABDOMEN: Soft, nontender, normoactive bowel sounds. EXTREMITIES: +LLE dressing in place. Normal range of motion, no edema. NEUROLOGICAL: Cranial nerves II through XII grossly intact. Normal speech. No focal neurological deficits. MUSCULOSKELETAL: Back non-tender to palpation, no CVA tenderness SKIN: foot: wound, plantar callus, surgical site clean, no drainage 03/07/19 10:07 Medical Decision Making - Medical Decision Making 03/04/19 12:51 Case reviewed with director of casework Will need to call the retirement to tell them to order the wound vac [facility] - [phone] 03/04/19 13:[address] Zhang He will be arranging wound vac for the nursing facility HE will plan on seeing this patient on Saturday Pt missed Vanco dose today Will give now and then d/c back to [facility] 03/04/19 13:59 Case reviewed with wound care Recommend either saline went to dry OR bactroband to the wound with dressing Discharge - Discharge Information Problems reviewed: Yes Clinical Impression/Diagnosis: Foot ulcer Qualifiers: Laterality: left Non-pressure ulcer stage: unspecified non-pressure ulcer stage Qualified Code(s): L97.529 - Non-pressure chronic ulcer of other part of left foot with unspecified severity Wound, open, foot Qualifiers: Encounter type: initial encounter Laterality: left Qualified Code(s): S91.302A - Unspecified open wound, left foot, initial encounter Condition: Stable Disposition: HOME - Admission No - Follow up/Referral Referrals: Austin Santoyo MD [Staff Physician] - - Patient Discharge Instructions Patient Printed Discharge Instructions: DI for Toe or Foot Amputation Additional Instructions: Thank you for coming in to the ER today Dr Zhang is arranging for the wound vac Please be sure to return to his office on SaturdayMARCH 10 You can apply Bactroban to the wound and cover with dressings BID Monitor for fevers and chills Please return to the ER for any other concerns or complaints - Post Discharge Activity
[2019-03-04 17:15] VITALS: BP 134/74; PULSE 79
== END 2019-03-04 18:00 | disposition home or self-care (01) ==
LOC: JER 10:40
DX: S91.302A Unspecified open wound, left foot, initial encounter (principal); L97.529 Non-pressure chronic ulcer of other part of left foot with unspecified severity; E11.9 Type 2 diabetes mellitus without complications; K92.9 Disease of digestive system, unspecified; I10 Essential (primary) hypertension; E78.00 Pure hypercholesterolemia, unspecified; Z88.0 Allergy status to penicillin; Z87.891 Personal history of nicotine dependence; X58.XXXA Exposure to other specified factors, initial encounter; Y93.89 Activity, other specified; Y92.89 Other specified places as the place of occurrence of the external cause
CPT/HCPCS: 99281-25